=== PATIENT | female | born 1955 | race Caucasian/White ===

== ENCOUNTER 2022-03-26 08:21 | Inpatient (IN) | payer MEDICARE, SELFPAY ==
[2022-03-26] VITALS (34 sets, daily range): BP systolic 95–153; BP diastolic 60–86; PULSE 60–98; RESP 8–20; TEMP 36.4–36.8; O2SAT 93–100; BMI 27.3
--- NOTE | 2022-03-26 | ECHO_ITS ---
Patient Info Name: Lianet Rausch Age: 66 years : 1955 Gender: Female Ht: 66 in Wt: 169 lbs BSA: 1.91 m2 HR: 78 bpm BP: 137 / 80 mmHg Heart Rhythm: Sinus Rhythm Technical Quality: Fair Exam Date: 03/26/2022 2:35 PM Exam Location: [facility] Pulmonary Exam Room: ICU 05 Patient Status: Inpatient Admit Date: 03/26/2022 Staff Ordering Physician: Phill Aranda MD Test Carrier: Jazmine Solomon RDCS Attending Provider: Mateo Leonard MD Referring Physician: Manoj SELLERS; Exam Type: CA echo doppler color flow Study Info Indications - ACS CHEST PAIN S/P CATH Complete two-dimensional, color flow and Doppler transthoracic echocardiogram is performed. Summary 1. Complete two-dimensional, color flow and Doppler transthoracic echocardiogram is performed. 2. Left ventricular chamber dimension is mildly enlarged. 3. Left ventricular systolic function is low normal, estimated at 50-55%. 4. There is mildly increased left ventricular wall thickness. 5. The left ventricular diastolic function is grade I diastolic dysfunction. 6. The basal inferior wall, mid inferior wall, basal anterolateral wall, mid anterolateral wall, basal inferolateral wall, and mid inferolateral wall are hypokinetic. 7. There is mild mitral valve regurgitation. 8. There is mild tricuspid valve regurgitation. Left Ventricle Left ventricular chamber dimension is mildly enlarged. Left ventricular systolic function is low normal, estimated at 50-55%. There is mildly increased left ventricular wall thickness. The left ventricular diastolic function is grade I diastolic dysfunction. The basal inferior wall, mid inferior wall, basal anterolateral wall, mid anterolateral wall, basal inferolateral wall, and mid inferolateral wall are hypokinetic. All other mendoza appear normal. Right Ventricle Right ventricular chamber dimension is normal. Right ventricular systolic function is normal. Left Atria Left atrial chamber dimension is normal. Right Atria Right atrial chamber dimension is normal. Atrial Septum Intact interatrial septum visualized by color flow imaging. Aortic Valve The aortic valve is trileaflet. There is mild aortic valve sclerosis. There is no aortic valve stenosis. There is trace aortic valve regurgitation. Pulmonic Valve The pulmonic valve is normal. There is no pulmonic valve stenosis. There is trace pulmonic regurgitation. Mitral Valve The mitral valve has normal leaflets. There is no mitral valve stenosis. There is mild mitral valve regurgitation. Tricuspid Valve The tricuspid valve leaflets are normal. There is no significant tricuspid valve stenosis. There is mild tricuspid valve regurgitation. No pulmonary hypertension, estimated pulmonary arterial systolic pressure is 24 mmHg. Pericardium/Pleural The pericardium appears normal. There is no pericardial effusion. Inferior Vena Cava Normal inferior vena cava with <50% collapse upon inspiration consistent with elevated right atrial pressure, 10 mmHg. Aorta The aortic root size at the sinus of Valsalva is normal. Left Ventricular Outflow Tract Name Value Normal LVOT 2D LVOT Diameter 2.0 cm
--- NOTE | ~2022-03-26 | XR_ITS ---
EXAMINATION: XR chest 2V DATE: 03/26/2022 09:00 INDICATION: Chest pain TECHNIQUE: AP and lateral views of the chest are obtained. COMPARISON: None available FINDINGS: There are minimal airspace opacities of the right middle lobe. No pleural effusion or pneum othorax. The cardiomediastinal silhouette is normal. There is mild thoracic spondylosis. IMPRESSION: 1. Minimal airspace opacities of the right middle lobe, consistent with atelectasis versus pneumonia. Reviewed, dictated and finalized at location A. IMPRESSION: 1. Minimal airspace opacities of the right middle lobe, consistent with atelect asis versus pneumonia.
--- NOTE | 2022-03-26 08:26 | ECG_ITS ---
Measurements Intervals [place] Rate: 75 P: 57 MT: 160 QRS: 21 QRSD: 102 T: 70 QT: 392 QTc: 439 Interpretive Statements SINUS RHYTHM MINIMAL ST DEPRESSION [0.025+ mV ST DEPRESSION] ABNORMAL ECG Electronically Signed On 03-26-2022 10:08:28 CDT by Phill Aranda M.D.
[2022-03-26 08:38] LABS: Basophils Absolute Auto 0.1 K/mm3 (0.0-0.1); Basophils Percent Auto 0.7 % (0.2-1.2); Eosinophils Absolute Auto 0.4 K/mm3 (0-0.3); Eosinophils Percent Auto 5.1 % (0-4.4); Hematocrit 38.4 % (37.0-47.0); Hemoglobin 12.4 g/dL (12.0-15.0); Immature Granulocyte Absolute 0.02 K/mm3 (0.00-0.031); Immature Granulocyte Percent A 0.3 % (0-0.5); Lymphocytes Absolute Auto 4.17 K/mm3 (0.9-3.2); Lymphocytes Percent Auto 54.8 % (18.3-44.2); Mean Corpuscular HGB Conc 32.3 g/dl (32-36); Mean Corpuscular Hemoglobin 25.9 pg (26-34); Mean Corpuscular Volume 80.2 fl (80-100); Monocytes Absolute Auto 0.5 K/mm3 (0.1-0.6); Monocytes Percent Auto 6.8 % (2.6-8.5); Neutrophils Absolute Auto 2.5 K/mm3 (1.3-6.7); Neutrophils Percent Auto 32.3 % (45.5-73.1); Platelet Count Result 405 k/mm3 (150-375); Red Blood Count 4.79 M/mm3 (4.2-5.4); Red Cell Distribution Width 17.1 % (11.5-14.5); White Blood Count 7.6 K/mm3 (4.5-10.0)
[2022-03-26] MEDS: MORPHINE SULFATE (*CRX) 4 MG/ML INJ IV PUSH (08:41)
[2022-03-26 08:46] LABS: INR 0.9; Prothrombin Time 12.2 Seconds (11.1-14.7)
[2022-03-26 08:47] LABS: Partial Thromboplastin Time 26.1 SECONDS (22.3-36.8)
[2022-03-26 08:49] LABS: Alanine Aminotransferase 18 U/L (6-35); Albumin Level 4.2 g/dL (3.5-5.1); Alkaline Phosphatase 85 U/L (38-126); Anion Gap 10 mmol/L (8-16); Aspartate Amino Transferase 31 U/L (14-36); Bilirubin,Total 0.4 mg/dL (0.2-1.3); Blood Urea Nitrogen 19 mg/dL (7-17); Calcium 9.5 mg/dL (8.4-10.2); Carbon Dioxide 20 mmol/L (22-30); Chloride 104 mmol/L (98-107); Estimated Glomerular Filt Rate > 60; Glucose 189 mg/dL (65-110); Lipase 127 U/L (23-300); Potassium 3.6 mmol/L (3.4-5.0); Sodium 134 mmol/L (137-145)
[2022-03-26 08:59] LABS: Troponin I < 0.012 ng/mL (0.000-0.034)
--- NOTE | 2022-03-26 09:04 | ED.CHESTPAIN ---
HPI - Chest Pain General Chief Complaint: Chest Pain Stated Complaint: Chest pressure Time Seen by Provider: 03/26/22 08:26 History of Present Illness HPI narrative: Patient is a 66-year-old female who presents ER with chest pain. Chest pain sudden onset. Occurred around 7:30 AM. Pressure in the center of her chest radiating to bilateral shoulders making her arms feel heavy. 9/10. Feels mildly dyspneic with it. No nausea or vomiting or sweats. No history of heart disease. Patient does have history of diabetes and high cholesterol. She reports she had a cardiac catheterization 3 years ago in which she had a 20% stenosis of her LAD. This was at [facility]. Patient had mild improvement with nitroglycerin x3 but pain is now creeping back up and is 7/10. Symptoms felt worse if she lays back. Related Data Home Medications Medication Instructions Recorded Confirmed metformin 500 mg tablet 500 mg PO BID 07/26/19 03/26/22 (Glucophage) sitagliptin 100 mg-metformin ER 1 tablet PO DAILY 07/26/19 03/26/22 1,000 mg tablet,extended [id number] (Janumet XR) esomeprazole magnesium 20 mg 1 mg PO DAILY 07/27/19 03/26/22 capsule,delayed release (Nexium) aspirin 81 mg tablet 81 mg PO DAILY 03/26/22 03/26/22 levothyroxine 75 mcg tablet 75 mcg PO DAILY 03/26/22 03/26/22 (Synthroid) meloxicam 7.5 mg tablet 15 mg PO DAILY 03/26/22 03/26/22 Allergies Allergy/AdvReac Type Severity Reaction Status Date / Time pantoprazole [From Protonix] Allergy irregular Verified 07/29/19 14:59 heart rate alcohol AdvReac Intermediate Flushing Verified 07/29/19 15:00 Review of Systems Review of Systems: All systems reviewed & are unremarkable except as noted in HPI and below Constitutional: Constitutional: Denies chills, Denies fatigue and Denies fever(s) ENT: Denies nasal congestion and Denies sore throat Cardiovascular: Cardiovascular: Reports chest pain, Denies rapid heart rate and Reports radiating jaw, neck or arm pain Respiratory: Respiratory: Denies cough, Reports dyspnea and Denies wheezing Gastrointestinal: Gastrointestinal: Denies abdominal pain, Denies nausea and Denies vomiting Neurologic: Denies syncope, Denies headache(s), Denies focal weakness and Denies numbness PMFSH Past Medical History Medical History Abnormal CT of the chest Chronic GERD Hyperparathyroidism Status post parathyroidectomy x1. Hypothyroidism Left ureteral calculus Osteoarthritis Type 2 diabetes mellitus Recent hemoglobin A1c was 6.6. Urolithiasis Surgical History Surgical History H/O hysterectomy for benign disease History of appendectomy History of bilateral knee replacement History of breast biopsy With benign histology. History of cholecystectomy History of parathyroidectomy X1. History of total abdominal hysterectomy and bilateral salpingo-oophorectomy History of ureter stent S/P cholecystectomy S/p total knee replacement, bilateral Family History Family History Father Acute myocardial infarction Diabetes mellitus Social History Social History (Updated 03/26/22 @ 14:40 by Elgin Philip MD) Social History: The patient lives in [place] with her . She designates her , Brian, as her surrogate decision maker and she wishes to be a full code. 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 She is a lifelong nonsmoker and denies drug abuse. Drinks alcohol occasionally code status full code Smoking status: Never smoker Alcohol intake: never Substance use: never Substance use type: does not use Gender identity (if verbalized by the patient): Female Spiritual care concerns: No Agree to blood products: Yes Exam Narrative: GENERAL: Well-nourished, moderate distress HEAD: Normocephalic, atraumatic. EYES: PER
[2022-03-26] MEDS: METOPROLOL TARTRATE INJ 5 MG/5 ML VIAL IV PUSH (09:33)
[2022-03-26 10:04] LABS: SARS-CoV-2 RNA PCR Negative
--- NOTE | 2022-03-26 10:15 | ECG_ITS ---
Measurements Intervals [place] Rate: 81 P: 59 MA: 171 QRS: 17 QRSD: 102 T: 79 QT: 392 QTc: 458 Interpretive Statements SINUS RHYTHM WITH FREQUENT VENTRICULAR PREMATURE COMPLEXES IN A BIGEMINAL PATTERN LOW QRS VOLTAGE IN EXTREMITY LEADS [QRS DEFLECTION < 0.5 mV IN LIMB LEADS] ST ELEVATION, CONSIDER INFERIOR INJURY [MARKED ST ELEVATION W/O NORMALLY INFLECTED T WAVE IN II/aVF] ACUTE WI ABNORMAL ECG COMPARED TO ECG 03/26/2022 08:23:05 NO SIGNIFICANT CHANGES Electronically Signed On 03-26-2022 17:21:30 CDT by Phill Aranda M.D.
--- NOTE | 2022-03-26 12:18 | ECG_ITS ---
Measurements Intervals [place] Rate: 88 P: 58 MI: 164 QRS: 21 QRSD: 102 T: 23 QT: 369 QTc: 447 Interpretive Statements SINUS RHYTHM LOW QRS VOLTAGE IN EXTREMITY LEADS [QRS DEFLECTION < 0.5 mV IN LIMB LEADS] NONSPECIFIC T-WAVE ABNORMALITY ABNORMAL ECG COMPARED TO ECG 03/26/2022 09:11:17 NO SIGNIFICANT CHANGES Electronically Signed On 03-26-2022 17:23:02 CDT by Phill Aranda M.D.
[2022-03-26] MEDS: HEPARIN SODIUM 5,000 UNITS/ML VIAL 4000 UNITS IV PUSH (12:27)
[2022-03-26] MEDS: MORPHINE SULFATE (*CRX) 2 MG/ML INJ 1 MG IV PUSH (12:38)
[2022-03-26] MEDS: NITROGLYCERIN SL 0.4 MG TABLET SUBLINGUAL (12:39)
--- NOTE | 2022-03-26 12:39 | PC.NURSE ---
[address] Aranda 1212 Over head paged 1213 Magy 1214 [place] [facility] ETA 16min 1237 Olea notified
[2022-03-26] MEDS: HEPARIN SOD/D5W 100 UNITS/ML 25,000 UNITS/250 ML BAG 8 UNITS IV CONT ×2 (12:41→20:15)
--- NOTE | 2022-03-26 12:48 | PM.CNCAR ---
Assessment and Plan Assessment and plan (1) ACS (acute coronary syndrome): Code(s): I24.9 - Acute ischemic heart disease, unspecified Status: Acute Assessment and Plan: Patient's 2nd EKG shows some inferior ST segment changes which are borderline for an ST-elevation myocardial infarction. Given ongoing symptoms, despite normalization of the ST segments with her 3rd ECG, patient will be treated aggressively. Standard heparin drip per protocol. Metoprolol was already given. Aspirin as also already been given. Morphine 1 mg IV x1 as well as another dose of sublingual nitroglycerin 0.4 mg sublingual p.r.n. chest pain. I did talk to Dr. Olea patient will be taken urgently to the cardiac catheterization lab for coronary angiogram. Atorvastatin 40 mg p.o. daily will also be initiated. Further workup and evaluation be depend on the results of the coronary angiogram. I will order 2D echocardiogram with Doppler also. Takotsubo is also not completely excluded as she has been under a great deal of stress as of late. (2) CAD (coronary artery disease): Code(s): I25.10 - Atherosclerotic heart disease of [place] coronary artery without angina pectoris Status: Acute Assessment and Plan: Previous 20% stenosis noted by angiogram a couple of years ago. (3) Type 2 diabetes mellitus: Code(s): E11.9 - Type 2 diabetes mellitus without complications Status: Acute Assessment and Plan: Per hospitalist (4) Hypercholesterolemia: Code(s): E78.00 - Pure hypercholesterolemia, unspecified Status: Acute Assessment and Plan: Will start atorvastatin. Will check a fasting lipid panel (5) Chest pain: Code(s): R07.9 - Chest pain, unspecified Status: Acute Assessment and Plan: Related to ACS History of Present Illness History of Present Illness Consult date/time: 03/26/22 12:48 Requesting physician: Adam Fuentes MD Reason For Visit: Chest Pain Narrative: Reason consultation: Chest pain Date of service 03/26/2022 Requesting provider: Dr. Fuentes History: Patient is a 66-year-old female came to hospital because of chest pain. She states she had a catheterization about 3 years ago at [facility] and was told she had a 20% stenosis in what she believes was the LAD. She does have a history of diabetes and hyperlipidemia as well as a family history of coronary disease. This morning at about 730 in the morning she started developed chest discomfort. Over the past couple of weeks he has been more fatigued as well as anemic. She was scheduled for colonoscopy in a couple of weeks. Today however she went to work. 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 She felt her arms being weak and numb. She had some pressure in her midsternal area. She came to the hospital initial EKG showed some nonspecific changes but not diagnostic for ACS. Second EKG was more concerning and her 2nd troponin has increased to 8. She has already received aspirin and metoprolol as well as heparin. Nitroglycerin was given in route which did help her symptoms. She states that her symptoms are almost gone to this point and our level of 2/10. She is under a great deal of stress at this point Review of Systems Review of Systems: All systems reviewed & are unremarkable except as noted in HPI and below Constitutional: Constitutional: Denies body ache(s) and Reports weakness Eyes: Eyes: Denies blurry vision ENT: Reports Normal hearing present Cardiovascular: Cardiovascular: Reports chest pain Respiratory: Respiratory: Denies cough Gastrointestinal: Gastrointestinal: Denies abdominal pain Genitourinary: Genitourinary: Denies hematuria Musculoskeletal: Musculoskeletal: Denies back pain Integumentary/Breasts: Skin/Breast: Denies breast pain Neurologic: Denies Abnormal speech present Psychiatric: Psychiatric: Denies anxiety and Denies behavioral changes Endocrine: End
--- NOTE | 2022-03-26 12:53 | PM.IMHP ---
H&P: HPI History of Present Illness Date/Time: 03/26/22 12:53 Chief Complaint: chest pain Narrative: this is a 66-year-old female patient who does have a history of coronary artery disease. She had a cardiac catheterization a couple years ago with minimal blockage. The patient stated that she had a very stressful day yesterday and felt stressed out. Her aunt just recently received a pacemaker so the patient feels very stress in her life. The patient stated that today she started with the chest pain that was a sudden onset around 730 this morning. She had pressure in the center of her chest reading to bilateral shoulders making her arms feel heavy. Her pain was 9/10. Feels mildly dyspneic with that. No nausea vomiting or sweats. She does have a history of diabetes and high cholesterol. Her cardiac catheterization was 3 years ago with approximately 20% stenosis of her LAD. This was at [facility]. The patient had mild improvement with the nitro x3 and then her pain could back up to a 7/10. Cardiology had been consulted. The 2nd EKG was read as an acute MS. the patient was having multiple PVCs at the time. Cardiology was called and a STEMI was called. Patient had been given a full dose of aspirin, morphine, Lopressor IV, heparin bolus, morphine, nitro, fentanyl, and heparin drip in the emergency room. Prior to going to the catheterization laboratory technician I did see the patient and she was talking in full sentences without difficulty. First troponin was negative and the 2nd troponin jumped up to 8.110. the patient is being admitted to observation status on the date of service of 03/26/2022. Review of Systems Review of Systems: See history of present illness All systems reviewed & are unremarkable except as noted in HPI and below Constitutional: Constitutional: Reports as per HPI and Reports no additional constitutional complaints Eyes: Eyes: Reports as per HPI and Reports no additional eye complaints ENT: Reports system reviewed and no additional complaints, except as documented and Reports Normal hearing present Cardiovascular: Cardiovascular: Reports no additional cardiovascular complaints Respiratory: Respiratory: Reports no additional respiratory complaints and Reports no additional respiratory complaints Gastrointestinal: Gastrointestinal: Reports as per HPI and Reports no additional gastrointestinal complaints Musculoskeletal: Musculoskeletal: Reports no additional musculoskeletal complaints Integumentary/Breasts: Skin/Breast: Reports system reviewed and no additional complaints, except as docu and Reports as per HPI Neurologic: Reports system reviewed and no additional complaints, except as documented, Reports as per HPI and Reports Normal hearing present Psychiatric: Psychiatric: Reports no additional psychiatric complaints and Reports as per HPI Endocrine: Endocrine: Reports no additional endocrine complaints Hematologic/Lymphatic: Hematologic/Lymphatic: Reports no additional hematologic/lymphatic complaints Allergic/Immunologic: Allergic/Immunologic: Reports no additional allergic/immunologic complaints [facility] Past Medical History Medical History (Updated 03/26/22 @ 13:49 by Marixa Cortes NP) Abnormal CT of the chest Chronic GERD Hyperparathyroidism Status post parathyroidectomy x1. Hypothyroidism Left ureteral calculus Osteoarthritis Type 2 diabetes mellitus Recent hemoglobin A1c was 6.6. Urolithiasis Surgical History Surgical History (Updated 03/26/22 @ 13:49 by Marixa Cortes NP) H/O hysterectomy for benign disease History of appendectomy History of bilateral knee replacement History of breast biopsy With benign histology. History of cholecystectomy History of parathyroidectomy X1. History of total abdominal hysterectomy and bilateral salpingo-oophorectomy History of ureter stent S/P cholecystectomy S/p total knee replacement, bilateral Family History Family History (Reviewed 03/26/22
--- NOTE | 2022-03-26 13:50 | WPDHPUPDATE1 ---
History and Physical Update Update Date/Time: 03/26/22 13:50 History and Physical has been reviewed, including an updated exam of the patient. There are NO changes in the patient's condition. Risks, benefits, and alternatives have been discussed and questions answered. Patient agrees to proceed with procedure.
--- NOTE | 2022-03-26 13:50 | WPDMODSED ---
Moderate Sedation Note-Pt Data Patient Data Diagnosis: nstemi Present Complaint: Chest pain Procedure to be performed/Plan: coronary angiogram Allergies Allergy/AdvReac Type Severity Reaction Status Date / Time pantoprazole [From Protonix] Allergy irregular Verified 07/29/19 14:59 heart rate alcohol AdvReac Intermediate Flushing Verified 07/29/19 15:00 Home Medications Medication Instructions Recorded Confirmed Type levothyroxine 100 mcg tablet 100 mcg PO DAILY 07/26/19 07/29/19 History (Synthroid) meloxicam 7.5 mg tablet (Mobic) 7.5 mg PO DAILY 07/26/19 07/29/19 History metformin 500 mg tablet 500 mg PO BID 07/26/19 07/29/19 History (Glucophage) ondansetron HCl 4 mg tablet 4 mg PO Q6H PRN nausea and 07/26/19 07/29/19 Rx (Zofran) vomiting #14 tabs sitagliptin 100 mg-metformin ER 1 tablet PO DAILY 07/26/19 07/29/19 History 1,000 mg tablet,extended [id number] mp (Janumet XR) esomeprazole magnesium 20 mg 1 mg PO DAILY 07/27/19 07/29/19 History capsule,delayed release (Nexium) hydrocodone 5 mg-acetaminophen 325 1 - 2 tablet PO Q6H PRN pain #20 07/29/19 Rx mg tablet tabs sulfamethoxazole 800 1 tablet PO Q12H #6 tabs 07/29/19 Rx mg-trimethoprim 160 mg tablet aspirin 81 mg tablet 81 mg PO DAILY 03/26/22 03/26/22 History levothyroxine 75 mcg tablet 75 mcg PO DAILY 03/26/22 03/26/22 History (Synthroid) meloxicam 7.5 mg tablet 7.5 mg PO DAILY 03/26/22 03/26/22 History metformin 500 mg tablet,extended mg PO 03/26/22 History release 24 hr Current Medications: Active Medications Acetaminophen (Acetaminophen 325 Mg Tablet) 650 mg PO Q4H PRN PRN Reason: Mild Pain (1-3) or Fever Hydrocodone Bitart/Acetaminophen (Hydrocodone/Acetaminophen (*Crx) 5-325 Mg Tablet) 1 tab PO Q4H PRN PRN Reason: Pain Rated 4-6 Atorvastatin Calcium (Atorvastatin 40 Mg Tablet) 40 mg PO DAILY DILLON Dextrose (Dextrose 50% 25 Gm/50 Ml Syringe) 12.5 gm IV PUSH PRN PRN; Protocol PRN Reason: Hypoglycemia Glucagon (Glucagon For Inj 1 Mg Vial) 1 mg IM PRN PRN; Protocol PRN Reason: Hypoglycemia Glucose (Glucose Oral Gel 15 Gm Of Glucse In 37.5 Gm Tube) 15 gm PO PRN PRN; Protocol PRN Reason: Hypoglycemia Heparin Sodium (Porcine) (Heparin Sodium 5,000 Units/Ml Vial) 4,000 units IV PUSH PRN PRN PRN Reason: aPTT less than 55 seconds Heparin Sodium (Porcine) (Heparin Sodium 5,000 Units/Ml Vial) 2,500 units IV PUSH PRN PRN PRN Reason: aPTT 55 - 70 seconds Heparin Sodium/Dextrose (Heparin Sodium/D5w 100 Units/Ml) 25,000 units in 250 mls @ 8 mls/hr IV CONT .Q24H DILLON; Protocol Last Admin: 03/26/22 12:41 Dose: 800 units/hr, 8 mls/hr Dextrose (Dextrose 5% 1,000 Ml) 1,000 mls @ 100 mls/hr IVPB PRN PRN; Protocol PRN Reason: Hypoglycemia Insulin Aspart (Insulin Aspart (*Bkc) 100 Units/Ml) 2 - 5 units SUB-Q TIDWM DILLON; Protocol Morphine Sulfate (Morphine Sulfate (*Crx) 4 Mg/Ml Inj) 4 mg IV PUSH Q2H PRN PRN Reason: Pain Rated 7-10 Ondansetron HCl (Ondansetron Inj 4 Mg/2 Ml Vial) 4 mg IV PUSH Q4H PRN PRN Reason: Nausea Perflutren Lipid Microsphere (Perflutren Lipid Microspheres 1.5 Ml Vial Diluted To 10 Ml Total Volume) 0 ml IV PUSH ONCE PRN; Protocol PRN Reason: adequate visualization Sedation/Anesthesia: No previous sedation/anesthesia problems (including family history). [facility] Past Medical History Medical History Abnormal CT of the chest Chronic GERD Hyperparathyroidism Status post parathyroidectomy x1. Hypothyroidism Left ureteral calculus Osteoarthritis Type 2 diabetes mellitus Recent hemoglobin A1c was 6.6. Urolithiasis Surgical History Surgical History H/O hysterectomy for benign disease History of appendectomy History of bilateral knee replacement History of breast biopsy With benign histology. History of cholecystectomy History of parathyroidectomy X1. History of total abdomi
--- NOTE | 2022-03-26 13:51 | P.PCNCC_ITS ---
Cardiac Cath Procedure Note Date of procedure:: 03/26/22 Performing physician:: Shannen Olea MD date of service 03/26/2022- Indication:: elevated troponins, chest pain Brief clinical history:: this 66-year-old female with past history of hypertension, hypothyroidism and previous cardiac catheterization 3 years ago with reported 20% in the LAD presents to the hospital with chest pain. Troponins were found to be elevated at 8. Procedure Procedure performed:: 1-Moderate sedation that started at and ended at using mg of Versed and mg fentanyl. The registered nurse was 2-Selective left and right coronary angiogram. 3-Left heart catheterization with measurement of LVEDP and measurement of gradient across aortic valve. 4- LV angiogram. 4-Right common femoral arterial angiogram. 5-Deployment of 6 [place] Angio-Seal. Sedation/Medication given:: Moderate sedation. Access site:: Right common femoral artery. Estimated blood loss:: 10cc Procedure note:: After informed consent patient was brought in to laboratory equipment cleaner with the was draped and prepped in usual manner. Moderate sedation was given and the right groin was infiltrated using 1% lidocaine. Five [place] sheath was obtained using micropuncture needle and the modified Seldinger technique. Selective left coronary angiogram was done using JL4 catheter with the tip of the catheter pl aced in the left main coronary artery. Selective right coronary angiogram was done using JR4 catheter with the tip of the catheter placed to the right coronary artery. After that 6 [place] pigtail catheter was advanced across the aortic valve into the left ventricle with measurement of LVEDP and measurement of gradient across aortic valve. Right common femoral arterial angiogram was done. Findings:: 1- left coronary artery is a large artery that divides into large LAD, large circumflex artery. Left main is free of disease. 2- left anterior descending artery is a large artery that runs and wraps around the apex. Minimal irregularities. 3- leftcircumflex artery is a large artery With minimal irregularities. In the mid segment large OM1 without significant disease. 4- right coronary artery is dual system. we initially engaged a very small RCA and we thought it is non dominant and that looked unremarkable however when we went back with a JR4 we managed to engage the ostium and shows that the RCA gives a medium-size artery that looks dominant. There is a spiral and haziness proximally suspicious for a dissection plane. 5- LVEDP was 25 mm Hgand no gradient across aortic valve. 6- LV angiogram ejection fraction 65% with basal and mid inferior wall hypokinesis. 6- opening arterial pressure was 140/80 and closing pressure was 130/70 7- right femoral artery angiogram shows no significant disease in the right common femoral artery. 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 evidence of basal and mid inferior wall hypokinesis Assessment and Plan Assessment and plan (1) Chest pain: Code(s): R07.9 - Chest pain, unspecified Status: Acute Plan - would resume heparin 6 hours from now and continue it for about 48 hours. - Continue aspirin - start Plavix 75 mg daily. - Observe patient for now
--- NOTE | 2022-03-26 14:09 | ADMGEN ---
This patient, Lianet Rausch, was admitted to Intensive Care Unit-5 at 1400. Patient/family oriented to hospital policies and general routines including ID bracelet, bed and alarms, visiting hours, pain management, procedures, bathroom and other care routines, personal items, smoking policy, room service/diet, and visiting hours. Information on how to activate the Rapid Response Team has been discussed. Patient/Family are encouraged to report perceived risks to care and to ask questions if they do not understand what they are told or what they should do.
--- NOTE | 2022-03-26 14:17 | WPDCNINT ---
Assessment and Plan Assessment and plan (1) ACS (acute coronary syndrome): Code(s): I24.9 - Acute ischemic heart disease, unspecified Status: Acute Assessment and Plan: Cardiac catheterization showed nonobstructive coronary disease and dissection of RCA Discuss with Cardiology and they plan to treat patient medically Continue aspirin Lipitor Plavix Heparin be resumed in 6 hours Echo is ordered ICU telemetry monitoring (2) CAD (coronary artery disease): Code(s): I25.10 - Atherosclerotic heart disease of [place] coronary artery without angina pectoris Status: Acute Assessment and Plan: See above (3) Type 2 diabetes mellitus: Code(s): E11.9 - Type 2 diabetes mellitus without complications Status: Acute Assessment and Plan: Hold p.o. 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 She presented today with chest pain started suddenly aound 730 this morning.? She had pressure in the center of her chest reading to bilateral shoulders making her arms feel heavy.? Her pain was 9/10.? Feels mildly dyspneic with that.? No nausea vomiting or sweats.? No palpitations lightheadedness or dizziness. Her cardiac catheterization was 3 years ago with approximately 20% stenosis of her LAD and was done [facility].? In ER, patient had mild improvement with the nitro x3 and then her? pain could back up to a 7/10.? She had elevated troponin Patient was diagnosed with STEMI and Cardiology was consulted.? Patient was also given aspirin, morphine, Lopressor IV, heparin bolus, morphine, nitro, fentanyl, and heparin drip in the emergency room.? Cardiac catheterization showed spiral dissection of proximal RCA with BONY flow 3. She also had estimated EF of 55% and evidence of basal and mid inferior wall hypokinesis. No intervention was performed Patient now admitted to ICU for further evaluation management. Patient this time states that she feels much better and denies any pain at this time. All the systems were reviewed and were negative PMFSH Past Medical History Medical History Abnormal CT of the chest Chronic GERD Hyperparathyroidism Status post parathyroidectomy x1. Hypothyroidism Left ureteral calculus Osteoarthritis Type 2 diabetes mellitus Recent hemoglobin A1c was 6.6. Urolithiasis Surgical History Surgical History H/O hysterectomy for benign disease History of appendectomy History of bilateral knee replacement History of breast biopsy With benign histology. History of cholecystectomy History of parathyroidectomy X1. History of total abdominal hysterectomy and bilateral salpingo-oophorectomy History of ureter stent S/P cholecystectomy S/p total knee replacement, bilateral Family History Family History Father Acute myocardial infarction Diabetes mellitus Social History Social History (Updated 03/26/22 @ 14:40 by Elgin Sa
[2022-03-26] MEDS: ATORVASTATIN 40 MG TABLET PO (14:24)
[2022-03-26] MEDS: SODIUM CHLORIDE 0.9% IV 1,000 ML 75 ML IV CONT (14:25)
[2022-03-26 18:29] LABS: Glucose Point of Care 135 mg/dl (65-105)
[2022-03-26] MEDS: ACETAMINOPHEN 325 MG TABLET 650 MG PO (19:53)
[2022-03-26] MEDS: METOPROLOL TARTRATE 12.5 MG TABLET PO (19:53)
[2022-03-26] MEDS: FAMOTIDINE 20 MG TABLET PO (19:53)
[2022-03-26 21:11] LABS: Glucose Point of Care 164 mg/dl (65-105)
[2022-03-27] VITALS (17 sets, daily range): BP systolic 111–131; BP diastolic 54–81; PULSE 7–86; RESP 16–19; TEMP 35.9–37; O2SAT 92–100
[2022-03-27 02:11] LABS: Hematocrit 36.7 % (37.0-47.0); Hemoglobin 11.7 g/dL (12.0-15.0); Mean Corpuscular HGB Conc 31.9 g/dl (32-36); Mean Corpuscular Hemoglobin 26.1 pg (26-34); Mean Corpuscular Volume 81.7 fl (80-100); Platelet Count Result 373 k/mm3 (150-375); Red Blood Count 4.49 M/mm3 (4.2-5.4); Red Cell Distribution Width 17.3 % (11.5-14.5); White Blood Count 7.9 K/mm3 (4.5-10.0)
[2022-03-27 02:25] LABS: Lactic Acid Reflex 1.1 mmol/L (0.7-2.0)
[2022-03-27 02:29] LABS: Alanine Aminotransferase 25 U/L (6-35); Albumin Level 3.7 g/dL (3.5-5.1); Alkaline Phosphatase 61 U/L (38-126); Anion Gap 5 mmol/L (8-16); Aspartate Amino Transferase 92 U/L (14-36); Bilirubin,Total 0.3 mg/dL (0.2-1.3); Blood Urea Nitrogen 17 mg/dL (7-17); Calcium 8.8 mg/dL (8.4-10.2); Carbon Dioxide 26 mmol/L (22-30); Chloride 102 mmol/L (98-107); Cholesterol 274 mg/dL (0-200); Estimated CRCL calculation 73 ml/min; Estimated Glomerular Filt Rate > 60; Glucose 194 mg/dL (65-110); Magnesium 1.6 mg/dL (1.6-2.3); Potassium 4.1 mmol/L (3.4-5.0); Sodium 133 mmol/L (137-145)
[2022-03-27] MEDS: HEPARIN SODIUM 5,000 UNITS/ML VIAL 4000 UNITS IV PUSH (02:31)
[2022-03-27 02:35] LABS: LDL Cholesterol Direct 139 mg/dL
[2022-03-27 03:23] LABS: Hemoglobin A1C 7.7 % (<5.7)
[2022-03-27 03:26] LABS: Triglycerides 617 mg/dL (<150)
[2022-03-27 03:28] LABS: Lactate Dehydrogenase 302 U/L (120-246)
[2022-03-27 03:53] LABS: Thyroid Stimulating Hormone Reflex 0.074 uIU/mL (0.465-4.68)
[2022-03-27 05:19] LABS: Free T4 Free Thyroxine Reflex 1.21 ng/dL (0.78-2.19)
[2022-03-27] MEDS: ACETAMINOPHEN 325 MG TABLET 650 MG PO (05:51)
[2022-03-27] MEDS: LEVOTHYROXINE SODIUM 75 MCG TABLET PO (05:51)
[2022-03-27 08:17] LABS: Glucose Point of Care 203 mg/dl (65-105)
--- NOTE | 2022-03-27 08:55 | WPDINTPN ---
Progress Note: A&P Assessment and Plan (1) ACS (acute coronary syndrome): Code(s): I24.9 - Acute ischemic heart disease, unspecified Status: Acute Assessment and Plan: Cardiac catheterization showed nonobstructive coronary disease and dissection of RCA Discuss with Cardiology and they plan to treat patient medically Continue aspirin Lipitor Plavix Heparin will be continued for total of 48 hours as per Cardiology Continue telemetry monitoring Echo results were discussed with the patient Summary ? 1. Complete two-dimensional, color flow and Doppler transthoracic echocardiogram is performed. ? 2. Left ventricular chamber dimension is mildly enlarged. ? 3. Left ventricular systolic function is low normal, estimated at 50-55%. ? 4. There is mildly increased left ventricular wall thickness. ? 5. The left ventricular diastolic function is grade I diastolic dysfunction. ? 6. The basal inferior wall, mid inferior wall, basal anterolateral wall, mid anterolateral wall, basal inferolateral wall, and mid inferolateral wall are hypokinetic. ? 7. There is mild mitral valve regurgitation. ? 8. There is mild tricuspid valve regurgitation. (2) CAD (coronary artery disease): Code(s): I25.10 - Atherosclerotic heart disease of [place] coronary artery without angina pectoris Status: Acute Assessment and Plan: See above (3) Type 2 diabetes mellitus: Code(s): E11.9 - Type 2 diabetes mellitus without complications Status: Acute Assessment and Plan: p.o. meds are on hold at this time and continue sliding scale insulin (4) Hypercholesterolemia: Code(s): E78.00 - Pure hypercholesterolemia, unspecified Status: Acute Assessment and Plan: Lipid panel shows elevated triglyceride Lipitor was started by Cardiology I discussed options of Vascepa and fenofibrate with the patient for treatment of hypertriglyceridemia. She states that she takes [id number] fish oil and would prefer Vascepa. 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 We do not have Vascepa in the hospital formulary. She states that she will obtain a prescription at the time of discharge then start as an outpatient. Will discuss Cardiology and Internal Medicine (5) Chronic GERD: Code(s): K21.9 - Gastro-esophageal reflux disease without esophagitis Status: Acute Assessment and Plan: Patient states intolerance to Protonix which is the only PPI we have. He prefers Nexium which is not a formulary She is on Pepcid at this time while inpatient (6) Hypothyroidism: Code(s): E03.9 - Hypothyroidism, unspecified Status: Acute Assessment and Plan: Continue levothyroxine TSH low but normal T3 and T4 Will not make any change in the rectal dose at this time Plan DVT prophylaxis -patient will continue to be on therapeutic heparin infusion Stress ulcer prophylaxis -on Pepcid for GERD Nutrition -heart healthy diet Full code Transfer out of ICU today Subjective Date/time seen: 03/27/22 Patient states that she feels much better and denies any new complaints today. She slept well and has no chest pain or shortness of breath. She ate her dinner. Patient denies fever, chest pain, shortness of breath, cough, nausea vomiting, abdominal pain,, diarrhea, headache or constipation. All other systems were reviewed and were negative Sinus rhythm on telemetry with adequate blood pressure. She is on room air Review of Systems Review of Systems: All systems reviewed & are unremarkable except as noted in HPI and below (HPI) Exam Narrative: General: Pt is alert awake and in NAD Lungs/Chest: Trachea central Clear BS B/L, No crackles or wheezing. Cardiac: RRR. Normal S1 S2. No murmurs Circulation: Pedal pulses are intact and symmetrical. Abdomen: Normal bowel sounds.. Soft. NT. ND. Extremities: No clubbing, cyanosis or edema. Warm right groin site has an just seal dressing on it with no swelling bruising or hemat
[2022-03-27 09:08] LABS: Partial Thromboplastin Time 70.7 SECONDS (22.3-36.8)
[2022-03-27] MEDS: METOPROLOL TARTRATE 12.5 MG TABLET PO ×2 (09:30→20:37)
[2022-03-27] MEDS: FAMOTIDINE 20 MG TABLET PO ×2 (09:30→20:37)
[2022-03-27] MEDS: ASPIRIN 81 MG CHEWABLE TABLET PO (09:31)
[2022-03-27] MEDS: CLOPIDOGREL BISULFATE 75 MG TABLET PO (09:31)
[2022-03-27] MEDS: INSULIN ASPART (*BKC) 100 UNITS/ML SUB-Q ×2 (09:31→12:30)
[2022-03-27] MEDS: ATORVASTATIN 40 MG TABLET PO (09:31)
--- NOTE | 2022-03-27 09:56 | ECG_ITS ---
Measurements Intervals [place] Rate: 64 P: 53 IN: 170 QRS: -2 QRSD: 106 T: -31 QT: 452 QTc: 467 Interpretive Statements SINUS RHYTHM LOW QRS VOLTAGE IN EXTREMITY LEADS [QRS DEFLECTION < 0.5 mV IN LIMB LEADS] NONSPECIFIC T-WAVE ABNORMALITY ABNORMAL ECG COMPARED TO ECG 03/26/2022 12:23:42 NO SIGNIFICANT CHANGES Electronically Signed On 03-27-2022 12:23:48 CDT by Phill Aranda M.D.
--- NOTE | 2022-03-27 09:57 | PM.PNCARD ---
Progress Note: A&P Assessment and Plan (1) ACS (acute coronary syndrome): Code(s): I24.9 - Acute ischemic heart disease, unspecified Status: Acute Assessment and Plan: Will repeat an EKG today. Also repeat troponin for evaluation of peak. Catheterization results as below as well as echocardiogram Echo:2. Left ventricular chamber dimension is mildly enlarged. ? 3. Left ventricular systolic function is low normal, estimated at 50-55%. ? 4. There is mildly increased left ventricular wall thickness. ? 5. The left ventricular diastolic function is grade I diastolic dysfunction. ? 6. The basal inferior wall, mid inferior wall, basal anterolateral wall, mid anterolateral wall, basal inferolateral wall, and mid inferolateral wall are hypokinetic. ? 7. There is mild mitral valve regurgitation. ? 8. There is mild tricuspid valve regurgitation. Cardiac catheterization 1- left coronary artery is a large artery that divides into large LAD, large circumflex artery.? Left main is free of disease. 2- left anterior descending artery is a large artery that runs and wraps around the apex.? Minimal irregularities. 3- leftcircumflex artery is a large artery? With minimal irregularities.? In the mid segment large OM1 without significant disease. 4- right coronary artery is? dual? system. we initially engaged a very small RCA and we thought it is non dominant and that looked unremarkable however when we went back with a JR4 we managed to engage the ostium and shows that the RCA gives a medium-size artery that looks dominant.? There is a spiral and haziness proximally suspicious for a dissection plane. 5- LVEDP was? 25 mm Hgand no gradient across aortic valve. 6- LV angiogram ejection fraction 65% with basal and mid inferior wall hypokinesis. 6- opening arterial pressure was 140/80 and closing pressure was 130/70 7- right femoral artery angiogram shows no significant disease in the right common femoral artery. Continue heparin, metoprolol, aspirin, clopidogrel, statin. Keep NPO after midnight for consideration of repeating angiogram tomorrow. Will have Dr. Reed review films and discuss case with him. Okay to transfer to IMU (2) CAD (coronary artery disease): Code(s): I25.10 - Atherosclerotic heart disease of [place] coronary artery without angina pectoris Status: Acute Assessment and Plan: As above (3) Chronic GERD: Code(s): K21.9 - Gastro-esophageal reflux disease without esophagitis Status: Acute (4) Type 2 diabetes mellitus: Code(s): E11.9 - Type 2 diabetes mellitus without complications Status: Acute Assessment and Plan: Per hospitalist (5) Hypercholesterolemia: Code(s): E78.00 - Pure hypercholesterolemia, unspecified Status: Acute Assessment and Plan: On statin Subjective Date/time seen: 03/27/22 09:57 Interval history: 66-year-old admitted for ACS/chest pain. Catheterization performed yesterday with details as below. Date of service 03/27/2022: Feels well. No chest pain, shortness of breath, groin pain or palpitations. Review of Systems Review of Systems: All systems reviewed & are unremarkable except as noted in HPI and below Constitutional: Constitutional: Denies body ache(s), Denies excessive sweating and Reports weakness Eyes: Eyes: Denies blurry vision ENT: Reports Normal hearing present Cardiovascular: Cardiovascular: Reports chest pain Respiratory: Respiratory: Denies cough Gastrointestinal: Gastrointestinal: Denies abdominal pain Genitourinary: Genitourinary: Denies hematuria Musculoskeletal: Musculoskeletal: Denies back pain Integumentary/Breasts: Skin/Breast: Denies breast pain Neurologic: Reports Normal hearing present, Denies Abnormal speech present, Denies behavioral changes and Reports weakness Psychiatric: Psychiatric: Denies anxiety and Denies behavioral changes Endocrine: Endocrine: Denies excessive sweating
[2022-03-27 12:14] LABS: Glucose Point of Care 265 mg/dl (65-105)
[2022-03-27 14:15] LABS: Partial Thromboplastin Time 57.7 SECONDS (22.3-36.8); Prothrombin Time 13.2 Seconds (11.1-14.7)
--- NOTE | 2022-03-27 14:38 | PM.IMPN ---
Progress Note: A&P Assessment and Plan (1) ACS (acute coronary syndrome): Code(s): I24.9 - Acute ischemic heart disease, unspecified Status: Acute (2) CAD (coronary artery disease): Code(s): I25.10 - Atherosclerotic heart disease of [place] coronary artery without angina pectoris Status: Acute (3) Type 2 diabetes mellitus: Code(s): E11.9 - Type 2 diabetes mellitus without complications Status: Acute (4) Hypercholesterolemia: Code(s): E78.00 - Pure hypercholesterolemia, unspecified Status: Acute (5) Chronic GERD: Code(s): K21.9 - Gastro-esophageal reflux disease without esophagitis Status: Acute (6) Hypothyroidism: Code(s): E03.9 - Hypothyroidism, unspecified Status: Acute Plan # acute coronary syndrome. Patient presented with chest pain initial troponin was negative. EKG with no ST-T changes. He started having chest panic and troponin bump to 8.1. A inferior lead ST elevation were noted stat STEMI was called. Cardiology was consulted. Received aspirin, nitro, Lopressor, heparin bolus drip in the ER. Status post cardiac catheterization: Suspicious for spiral dissection proximal RCA with BONY flow 3. Evidence of basal and mid inferior wall hypokinesis. On aspirin and Plavix. Echo EF 50-55% grade 1 diastolic dysfunction. Hypokinetic basal inferior wall mid inferior wall and basal anterolateral wall mid anterolateral wall basal inferolateral wall and mid inferolateral wall. on aspirin and statin along with beta-faisal. # coronary disease history of minimal coronary artery disease in the past # intolerance to statin in the past willing to try again # chronic GERD # type 2 diabetes mellitus on OhA. restart januvia. hold metfomrin for now de to recent cath. on ssi. A1c at 7.7 # hypercholesterolemia on statin lipid profile with elevated triglycerides 617. On fish oil. will repeat Lipid profile in a.m. # hypothyroidism # DVT prophylaxis on heparin infusion # code status full code Discussed with cover marker Subjective Date/time seen: 03/27/22 14:38 Interval history: HPI:?this is a 66-year-old female patient who does have a history of coronary artery disease.? She had a cardiac catheterization a couple years ago with minimal blockage.? The patient stated that she had a very stressful day yesterday and felt stressed out.? Her aunt just recently received a pacemaker so the patient feels very stress in her life.? The patient stated that today she started with the chest pain that was a sudden onset around 730 this morning.? She had pressure in the center of her chest reading to bilateral shoulders making her arms feel heavy.? Her pain was 9/10.? Feels mildly dyspneic with that.? No nausea vomiting or sweats.? She does have a history of diabetes and high cholesterol.? Her cardiac catheterization was 3 years ago with approximately 20% stenosis of her LAD.? This was at [facility].? The patient had mild improvement with the nitro x3 and then her? pain could back up to a 7/10.? Cardiology had been consulted.? The 2nd EKG was read as an acute TX. the patient was having multiple PVCs at the time.? Cardiology was called and a STEMI was called.? Patient had been given a full dose of aspirin, morphine, Lopressor IV, heparin bolus, morphine, nitro, fentanyl, and heparin drip in the emergency room.? Prior to going to the clinical laboratory scientist I did see the patient and she was talking in full sentences without difficulty.? First troponin was negative and the 2nd? troponin jumped up to 8.110. the patient is being admitted to observation status on the date of service of 03/26/2022. 03/27/2022 she moved out of the ICU today.Feels better. No chest pain shortness of breath. Groin site looks okay. Review of Systems Review of Systems: All systems reviewed & are unremarkable except as noted in HPI and below (HPI) Exam Narrative: General: Pt is alert awake and in NAD Lungs/Chest:
[2022-03-27] MEDS: HEPARIN SODIUM 5,000 UNITS/ML VIAL 2500 UNITS IV PUSH (14:53)
--- NOTE | 2022-03-27 16:54 | PC.NURSE ---
This patient, Lianet Rausch, was received from ICU5 report from Imelda Albarado RN on 03/27/22 at 12:37. Patient/family oriented to unit policies and routines. Heparin drip going at 12. Patient A&O X 4. No distress noted.
[2022-03-27 17:15] LABS: Glucose Point of Care 155 mg/dl (65-105)
[2022-03-27] MEDS: HEPARIN SOD/D5W 100 UNITS/ML 25,000 UNITS/250 ML BAG 13 UNITS IV CONT (17:27)
[2022-03-27 19:50] LABS: Glucose Point of Care 257 mg/dl (65-105)
[2022-03-27 20:13] LABS: Partial Thromboplastin Time 85.6 SECONDS (22.3-36.8)
[2022-03-28] VITALS (9 sets, daily range): BP systolic 141; BP diastolic 57–71; PULSE 67–84; RESP 16–20; TEMP 36.6–36.9; O2SAT 95–100
[2022-03-28 02:24] LABS: Hematocrit 37.5 % (37.0-47.0); Hemoglobin 11.9 g/dL (12.0-15.0); Mean Corpuscular HGB Conc 31.7 g/dl (32-36); Mean Corpuscular Hemoglobin 25.8 pg (26-34); Mean Corpuscular Volume 81.3 fl (80-100); Mean Platelet Volume 10.1 fl (7.4-10.4); Platelet Count Result 369 k/mm3 (150-375); Red Blood Count 4.61 M/mm3 (4.2-5.4); Red Cell Distribution Width 17.2 % (11.5-14.5); White Blood Count 6.8 K/mm3 (4.5-10.0)
[2022-03-28 02:37] LABS: Partial Thromboplastin Time 78.6 SECONDS (22.3-36.8)
[2022-03-28 02:44] LABS: Alanine Aminotransferase 21 U/L (6-35); Albumin Level 3.6 g/dL (3.5-5.1); Alkaline Phosphatase 113 U/L (38-126); Anion Gap 7 mmol/L (8-16); Aspartate Amino Transferase 49 U/L (14-36); Bilirubin,Total < 0.1 mg/dL (0.2-1.3); Blood Urea Nitrogen 20 mg/dL (7-17); Calcium 9.3 mg/dL (8.4-10.2); Carbon Dioxide 25 mmol/L (22-30); Chloride 104 mmol/L (98-107); Cholesterol 242 mg/dL (0-200); Estimated CRCL calculation 83 ml/min; Estimated Glomerular Filt Rate > 60; Glucose 222 mg/dL (65-110); Magnesium 1.8 mg/dL (1.6-2.3); Potassium 3.7 mmol/L (3.4-5.0); Sodium 136 mmol/L (137-145)
[2022-03-28 02:45] LABS: LDL Cholesterol Direct 115 mg/dL
[2022-03-28 04:22] LABS: Triglycerides 850 mg/dL (<150)
[2022-03-28] MEDS: LEVOTHYROXINE SODIUM 75 MCG TABLET PO (06:28)
[2022-03-28 09:04] LABS: Glucose Point of Care 242 mg/dl (65-105)
[2022-03-28] MEDS: ATORVASTATIN 40 MG TABLET PO (09:42)
[2022-03-28] MEDS: FAMOTIDINE 20 MG TABLET PO (09:42)
[2022-03-28] MEDS: ASPIRIN 81 MG CHEWABLE TABLET PO (09:43)
[2022-03-28] MEDS: METOPROLOL TARTRATE 12.5 MG TABLET PO (09:43)
--- NOTE | 2022-03-28 12:10 | PM.IMPN ---
Progress Note: A&P Assessment and Plan (1) ACS (acute coronary syndrome): Code(s): I24.9 - Acute ischemic heart disease, unspecified Status: Acute (2) CAD (coronary artery disease): Code(s): I25.10 - Atherosclerotic heart disease of [place] coronary artery without angina pectoris Status: Acute (3) Type 2 diabetes mellitus: Code(s): E11.9 - Type 2 diabetes mellitus without complications Status: Acute (4) Hypercholesterolemia: Code(s): E78.00 - Pure hypercholesterolemia, unspecified Status: Acute (5) Chronic GERD: Code(s): K21.9 - Gastro-esophageal reflux disease without esophagitis Status: Acute (6) Hypothyroidism: Code(s): E03.9 - Hypothyroidism, unspecified Status: Acute Plan # acute coronary syndrome. Patient presented with chest pain initial troponin was negative. EKG with no ST-T changes. He started having chest panic and troponin bump to 8.1. A inferior lead ST elevation were noted stat STEMI was called. Cardiology was consulted. Received aspirin, nitro, Lopressor, heparin bolus drip in the ER. Status post cardiac catheterization: Suspicious for spiral dissection proximal RCA with BONY flow 3. Evidence of basal and mid inferior wall hypokinesis. On aspirin and Plavix. Echo EF 50-55% grade 1 diastolic dysfunction. Hypokinetic basal inferior wall mid inferior wall and basal anterolateral wall mid anterolateral wall basal inferolateral wall and mid inferolateral wall. on aspirin and Plavix with statin along with beta-faisal. Awaiting Cardiac recommendation # coronary disease history of minimal coronary artery disease in the past # intolerance to statin in the past willing to try again # chronic GERD # type 2 diabetes mellitus on OhA. restart vinod. hold metfomrin for now de to recent cath. on ssi. A1c at 7.7 # hypercholesterolemia on statin lipid profile with elevated triglycerides 617. On fish oil. will repeat Lipid profile repeated with similar hypertriglyceridemia. Started on statin. May need addition of fibrate to lower the triglycerides down. # hypothyroidism # DVT prophylaxis on heparin infusion # code status full code Subjective Date/time seen: 03/28/22 12:10 Interval history: HPI:?this is a 66-year-old female patient who does have a history of coronary artery disease.? She had a cardiac catheterization a couple years ago with minimal blockage.? The patient stated that she had a very stressful day yesterday and felt stressed out.? Her aunt just recently received a pacemaker so the patient feels very stress in her life.? The patient stated that today she started with the chest pain that was a sudden onset around 730 this morning.? She had pressure in the center of her chest reading to bilateral shoulders making her arms feel heavy.? Her pain was 9/10.? Feels mildly dyspneic with that.? No nausea vomiting or sweats.? She does have a history of diabetes and high cholesterol.? Her cardiac catheterization was 3 years ago with approximately 20% stenosis of her LAD.? This was at [facility].? The patient had mild improvement with the nitro x3 and then her? pain could back up to a 7/10.? Cardiology had been consulted.? The 2nd EKG was read as an acute MT. the patient was having multiple PVCs at the time.? Cardiology was called and a STEMI was called.? Patient had been given a full dose of aspirin, morphine, Lopressor IV, heparin bolus, morphine, nitro, fentanyl, and heparin drip in the emergency room.? Prior to going to the field laborer I did see the patient and she was talking in full sentences without difficulty.? First troponin was negative and the 2nd? troponin jumped up to 8.110. the patient is being admitted to observation status on the date of service of 03/26/2022. 03/27/2022 she moved out of the ICU today.Feels better. No chest pain shortness of breath. Groin site looks okay. 03/28/2020 no overnight events. Feeling well. Denies any
[2022-03-28 13:01] LABS: Glucose Point of Care 201 mg/dl (65-105)
--- NOTE | 2022-03-28 13:48 | PM.PNCARD ---
Progress Note: A&P Assessment and Plan (1) ACS (acute coronary syndrome): Code(s): I24.9 - Acute ischemic heart disease, unspecified Status: Acute Assessment and Plan: Catheterization results as below as well as echocardiogram Echo:2. Left ventricular chamber dimension is mildly enlarged. ? 3. Left ventricular systolic function is low normal, estimated at 50-55%. ? 4. There is mildly increased left ventricular wall thickness. ? 5. The left ventricular diastolic function is grade I diastolic dysfunction. ? 6. The basal inferior wall, mid inferior wall, basal anterolateral wall, mid anterolateral wall, basal inferolateral wall, and mid inferolateral wall are hypokinetic. ? 7. There is mild mitral valve regurgitation. ? 8. There is mild tricuspid valve regurgitation. Cardiac catheterization 1- left coronary artery is a large artery that divides into large LAD, large circumflex artery.? Left main is free of disease. 2- left anterior descending artery is a large artery that runs and wraps around the apex.? Minimal irregularities. 3- leftcircumflex artery is a large artery? With minimal irregularities.? In the mid segment large OM1 without significant disease. 4- right coronary artery is? dual? system. we initially engaged a very small RCA and we thought it is non dominant and that looked unremarkable however when we went back with a JR4 we managed to engage the ostium and shows that the RCA gives a medium-size artery that looks dominant.? There is a spiral and haziness proximally suspicious for a dissection plane. 5- LVEDP was? 25 mm Hg and no gradient across aortic valve. 6- LV angiogram ejection fraction 65% with basal and mid inferior wall hypokinesis. 6- opening arterial pressure was 140/80 and closing pressure was 130/70 7- right femoral artery angiogram shows no significant disease in the right common femoral artery. Angiogram films reviewed by Dr. Reed and discussed with him. Coronary arteries free of disease and no evidence of dissection. Will treat for presumed coronary artery vasospasm. She has not had any recurrence of chest pain, troponin peaked at 22.8 and fell to 6.8 yesterday. Heparin has been discontinued at this point. Discussed diagnosis and plan of care with patient and at the bedside. Will discontinue plavix and ASA. Continue statin. Will add amlodipine 5mg daily and PRN SL nitroglycerin. If she has recurrent symptoms could add a long acting nitrate to her regimen. This plan was discussed with Dr. Reed at 1430 (2) CAD (coronary artery disease): Code(s): I25.10 - Atherosclerotic heart disease of [place] coronary artery without angina pectoris Status: Acute Assessment and Plan: As above (3) Chronic GERD: Code(s): K21.9 - Gastro-esophageal reflux disease without esophagitis Status: Acute (4) Type 2 diabetes mellitus: Code(s): E11.9 - Type 2 diabetes mellitus without complications Status: Acute Assessment and Plan: Per hospitalist (5) Hypercholesterolemia: Code(s): E78.00 - Pure hypercholesterolemia, unspecified Status: Acute Assessment and Plan: On statin Subjective Date/time seen: 03/28/22 13:48 Cardiology follow up for ACS Doing well today and denies any further episodes of chest pain. She does not have any complaints at this time. Does have multiple questions related to her diagnosis all of which were answered to her satisfaction. Review of Systems Review of Systems: All systems reviewed & are unremarkable except as noted in HPI and below Constitutional: Constitutional: Denies body ache(s), Denies excessive sweating and Reports weakness Eyes: Eyes: Denies blurry vision ENT: Reports Normal hearing present Cardiovascular: Cardiovascular: Reports chest pain Respiratory: Respiratory: Denies cough Gastrointestinal: Gastrointestinal: Denies abdominal pain Genitourinary: Genitourinary: Denies hematu
--- NOTE | 2022-03-28 14:54 | PM.DS ---
DS: Admitting Diagnosis Discharge Date 03/28/2022 Admitting Diagnosis chest pain DS: Discharge Diagnosis Discharge Diagnosis (1) ACS (acute coronary syndrome): Code(s): I24.9 - Acute ischemic heart disease, unspecified Status: Acute (2) CAD (coronary artery disease): Code(s): I25.10 - Atherosclerotic heart disease of [place] coronary artery without angina pectoris Status: Acute (3) Type 2 diabetes mellitus: Code(s): E11.9 - Type 2 diabetes mellitus without complications Status: Acute (4) Hypercholesterolemia: Code(s): E78.00 - Pure hypercholesterolemia, unspecified Status: Acute (5) Chronic GERD: Code(s): K21.9 - Gastro-esophageal reflux disease without esophagitis Status: Acute (6) Hypothyroidism: Code(s): E03.9 - Hypothyroidism, unspecified Status: Acute DS: Summary Hospital Course Hospital Course: # acute coronary syndrome. Patient presented with chest pain initial troponin was negative. EKG with no ST-T changes. she started having chest panic and troponin bump to 8.1And peaked at 22.8. A inferior lead ST elevation were noted stat STEMI was called. Cardiology was consulted. Received aspirin, nitro, Lopressor, heparin bolus drip in the ER. Status post cardiac catheterization: Suspicious for spiral dissection proximal RCA with BONY flow 3. Evidence of basal and mid inferior wall hypokinesis. On aspirin and Plavix. Echo EF 50-55% grade 1 diastolic dysfunction. Hypokinetic basal inferior wall mid inferior wall and basal anterolateral wall mid anterolateral wall basal inferolateral wall and mid inferolateral wall. she was started on aspirin and Plavix with statin along with beta-faisal. the films were reviewed by Dr. Reed and suggested no signs of coronary artery disease and no evidence of dissection. Suggested treat for possible coronary artery vasospasm. Started on amlodipine 5 mg and p.r.n. sublingual nitroglycerin. She had recurrent symptoms long-acting nitrate could be added. # coronary disease history of minimal coronary artery disease in the past # intolerance to statin in the past willing to try again. Started on statin # chronic GERD # type 2 diabetes mellitus on OhA. restart januvia. hold metfomrin for now de to recent cath. on ssi. A1c at 7.7. Continue to follow with her PCP for diabetes management # hypercholesterolemia on statin lipid profile with elevated triglycerides 617. On fish oil. Lipid profile repeated with similar hypertriglyceridemia. Started on statin. May need addition of fibrate to lower the triglycerides downIf statin due to 1. # hypothyroidism # DVT prophylaxis on heparin infusion # code status full code Time Spent with Patient Time attestation: Total time spent providing and/or coordinating discharge services:45 minutes Exam Narrative: General: Pt is alert awake and in NAD Lungs/Chest: Trachea central Clear BS B/L, No crackles or wheezing. Cardiac: RRR. Normal S1 S2. No murmurs Circulation: Pedal pulses are intact and symmetrical. Abdomen: Normal bowel sounds.. Soft. NT. ND. Extremities: No clubbing, cyanosis or edema. Neurologic: Follows commands. Moves all 4 extremities PERRL AO x3 Skin: No Rash DS: Data Data Completed and Pending Labs on day of discharge: Labs from last 24 hours 03/28/22 03/28/22 03/28/22 12:21 08:33 02:17 WBC RBC Hgb Hct MCV MCH MCHC RDW Plt Count MPV APTT 78.6 H Sodium Potassium Chloride Carbon Dioxide Anion Gap BUN Creatinine Estim Creat Clear Calc Estimated GFR Glucose POC Capillary Glucose 201 H 242 H Calcium Magnesium Total Bilirubin AST ALT Alkaline Phosphatase Total Protein Albumin Triglycerides Cholesterol LDL Cholesterol Direct HDL Direct 03/28/22 03/28/22 03/27/22 02:17 02:17 19:50 WBC 6.8 RBC
== END 2022-03-28 16:29 | disposition home or self-care (01) | DRG 287 ==
LOC: ANHED 10:11 → ANHICU 12:25 → ANHIMU 03-27 12:25
PROVIDERS: Family Medicine; Internal Medicine; Internal Medicine Cardiovascular Disease; Nurse Practitioner; Admitting Provider Internal Medicine; Emergency Provider Emergency Medicine; Visit Provider Internal Medicine
PROC: 4A023N7 Measurement of Cardiac Sampling and Pressure, Left Heart, Percutaneous Approach (ICD-10-PCS; CPT 93452; principal; 2022-03-26 12:30)
PROC: 4A023N7 Measurement of Cardiac Sampling and Pressure, Left Heart, Percutaneous Approach (ICD-10-PCS; 2022-03-26 12:30)
DX: I24.9 Acute ischemic heart disease, unspecified (principal); K21.9 Gastro-esophageal reflux disease without esophagitis; Z20.822 Contact with and (suspected) exposure to COVID-19; E11.9 Type 2 diabetes mellitus without complications; E78.00 Pure hypercholesterolemia, unspecified; E03.9 Hypothyroidism, unspecified; M19.90 Unspecified osteoarthritis, unspecified site; Z96.653 Presence of artificial knee joint, bilateral; Z79.84 Long term (current) use of oral hypoglycemic drugs; Z90.49 Acquired absence of other specified parts of digestive tract; Z90.710 Acquired absence of both cervix and uterus; Z90.722 Acquired absence of ovaries, bilateral
CPT/HCPCS: 36415; 71046; 80053; 80061; 82948; 83036; 83605; 83615; 83690; 83735; 84439; 84443; 84480; 84484; 85025; 85027; 85610; 85730; 93005; 93306; 93458; 96365; 96375; 99285; A9270; C1760; C1887; C1894; C9803; G0269; G0378; J1644; J1815; J2250; J2270; J3010; J7030; U0003; U0005

== ENCOUNTER 2022-04-26 14:01 | Outpatient (CLI) | payer MEDICARE, SELFPAY ==
[2022-04-26 15:09] LABS: Anion Gap 16 mmol/L (8-16); Blood Urea Nitrogen 15 mg/dL (7-17); Calcium 9.4 mg/dL (8.4-10.2); Carbon Dioxide 21 mmol/L (22-30); Chloride 101 mmol/L (98-107); Estimated Glomerular Filt Rate > 60; Glucose 211 mg/dL (65-110); Magnesium 1.6 mg/dL (1.6-2.3); Sodium 138 mmol/L (137-145)
== END 2022-04-26 14:02 | disposition home or self-care (01) ==
PROVIDERS: Visit Provider Nurse Practitioner Adult Health
DX: R00.2 Palpitations (principal)
CPT/HCPCS: 36415; 80048; 83735

== ENCOUNTER 2022-06-16 15:01 | Observation (INO) | payer MEDICARE, SELFPAY ==
--- NOTE | ~2022-06-16 | XR_ITS ---
EXAMINATION: XR chest 1V portable 06/16/2022 15:35 INDICATION: Right-sided weakness. PROCEDURE: AP portable chest COMPARISON: 03/26/2022 FINDINGS: The lungs are clear. The cardiomediastinal silhouette is within normal limits. There are no pleural effusions. There is no pneumothorax suspected. IMPRESSION: 1: NO ACUTE CARDIOPULMONARY DISEASE. Reviewed, dictated and finalized at location A. WELDER
--- NOTE | ~2022-06-16 | CT_ITS ---
EXAMINATION: CT brain wo con DATE: 06/16/2022 15:16 INDICATION: Right-sided numbness. TECHNIQUE: Computed tomography (CT) of the head was performed without intravenous contrast. The mA wa s adjusted according to patient size. Iterative reconstruction technique was employed. The dose-lengt h product was 605.33 mGy-cm. COMPARISON: None FINDINGS: There is an old infarct in left cerebellum. There is old infarct in left parietal occipital region. There is a sellar and suprasellar mass measuring 17 mm. There is no intracranial hemorrhage or acute ischemic infarct. There are scattered areas of low attenuation in the cerebral white matter. The ventricles are normal in size. There is mild mucosal thickening in sphenoid sinus. The orbits ar e normal. The mastoid air cells are normal. IMPRESSION: 1. 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 2. Mild nonspecific cerebral white matter disease, which likely represents chronic small vessel ische gayathri disease. 3. 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 Brain MRI without and with con trast is recommended. Reviewed, dictated and finalized at location A. RANCE OFFICE MANAGER IMPRESSION: 1. Old infarcts involving the left cerebellum and left parietal occipital regio n. 2. Mild nonspecific cerebral white matter disease, which likely represents chrome plater alyse small vessel ischemic disease. 3. 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 Brain MR I without and with contrast is recommended.
--- NOTE | ~2022-06-16 | US_ITS ---
EXAMINATION: US carotid duplex BI DATE: 06/17/2022 07:35 INDICATION: TIA. TECHNIQUE: Grayscale, color Doppler, and pulsed Doppler images of the cervical carotid arteries were obtained. The degree of vessel stenosis is placed in one of the following categories: normal, <50%, 5 0-69%, >=70% but less than near-occlusion, near-occlusion, or total occlusion. Note that percent sten osis relative to normal distal artery lumen diameter is indirectly measured from velocity measurement s as described by Oscar, et al. Radiology 2003; 229:340-346. Notes: Normal: Peak systolic velocity <125 centimeters/sec and no plaque <50%. Peak systolic velocity <125 ( EDV <40; ICA/CCA PSV ratio <2.0; used these factors only a tandem lesions or low cardiac output or co ntralateral disease) 50-69 %: PSV 125-230 (EDV 40-100; ratio 2-4) >= 70% but less than near occlusion: PSV greater than 230 (EDV > 100; ratio> 4.0) Near Occlusion: PSV that is variable; markedly narrowed lumen Occlusion: Absent flow on color/spectral Doppler and no lumen on scott scale. COMPARISON: None. FINDINGS: RIGHT: The right common carotid artery (CCA) peak systolic velocity (PSV) is 70 cm/s. The right internal car otid artery (ICA) PSV is 61 cm/s. The right ICA end-diastolic velocity (EDV) is 22 cm/s. The right IC A/CCA PSV ratio is 0.9. The external carotid artery (ECA) PSV is 73 cm/s. There is antegrade flow in the right vertebral artery. LEFT: The left CCA PSV is 70 cm/s. The left ICA PSV is 57 cm/s. The left ICA EDV is 23 cm/s. The left ICA/C CA PSV ratio is 0.8. The ECA PSV is 62 cm/s. There is antegrade flow in the left vertebral artery. IMPRESSION: 1. Less than 50% stenosis in the right internal carotid artery by sonographic criteria. 2. Less than 50% stenosis in the left internal carotid artery by sonographic criteria. Reviewed, dictated and finalized at location A. RATION TECHNICIAN IMPRESSION: 1. Less than 50% stenosis in the right internal carotid artery by sonographic ni martino. 2. Less than 50% stenosis in the left internal carotid artery by sonographic frankie rasheed.
--- NOTE | ~2022-06-16 | MR_ITS ---
EXAMINATION: MR brain/brain stem wo/w con DATE: 06/17/2022 07:10 INDICATION: Right hemiparesis. TECHNIQUE: Magnetic resonance imaging (MRI) of the brain and brainstem was performed without and with 14 mL MultiHance intravenous contrast. COMPARISON: Head CT 06/16/2022 FINDINGS: There are old infarcts in the left cerebellum and left parietal occipital region. There is no acute ischemic infarct or intracranial hemorrhage. There are scattered areas of nonspecific increa sed T2-weighted signal intensity in the cerebral white matter. There is a 2.0 x 1.7 x 1.4 cm sellar a nd suprasellar mass with hypoenhancement relative to the pituitary gland, consistent with a macroaden yocasta. No cavernous sinus invasion. The ventricles are normal in size. The paranasal sinuses are clear. The orbits are normal. The mastoid air cells are normal. IMPRESSION: 1. 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 2. Mild nonspecific cerebral white matter disease, which likely represents chronic small vessel ische gayathri disease. 3. 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 Reviewed, dictated and finalized at location A. AGE MEAT TRIMMER IMPRESSION: 1. Old infarcts involving the left cerebellum and left parietal occipital regio n. 2. Mild nonspecific cerebral white matter disease, which likely represents advertising coordinator alyse small vessel ischemic disease. 3. 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
[2022-06-16 15:02] VITALS: BP 114/96; PULSE 85; RESP 14; TEMP 36.8; O2SAT 100
--- NOTE | 2022-06-16 15:10 | ECG_ITS ---
Measurements Intervals [place] Rate: 86 P: 63 AL: 165 QRS: -14 QRSD: 98 T: 50 QT: 387 QTc: 465 Interpretive Statements SINUS RHYTHM LOW QRS VOLTAGE IN LIMB LEADS BORDERLINE R WAVE PROGRESSION, ANTERIOR LEADS BORDERLINE ST-T WAVE ABNORMALITY- INF/LAT LEADS BASELINE ARTIFACT- I, II, III, AVR, AVL, AVF, V1-V6 BORDERLINE ECG COMPARED TO ECG 03/27/2022 11:20:05 NO SIGNIFICANT CHANGES Electronically Signed On 06-16-2022 15:50:59 MEDICAL DOCTOR MD/MEDICAL DIRECTOR by Giorgi Roldan D.O.
[2022-06-16 15:14] LABS: Glucose Point of Care 162 mg/dl (65-105)
--- NOTE | 2022-06-16 15:20 | ED.NEUROSD ---
HPI - Neuro Symptoms/Deficit General Chief Complaint: Suspected CVA Stated Complaint: ?CVA Time Seen by Provider: 06/16/22 15:09 Source: RN notes reviewed History of Present Illness HPI Narrative: Patient presents emergency room from home for right-sided numbness. Patient states symptoms began approximately 30 minutes prior to arrival she states she was driving when she began to feel numb in her right arm and right leg as well as right side of her face she also states that she saw some red fuzzy sensation out of her right eye she states that this lasted for approximately 15 minutes and resolved she said she did not have any noted weakness in her right arm or leg states it did feel mildly heavy to her she states that she had no facial droop and did not have any trouble speaking. She states all symptoms have resolved at this time. She denies any chest pain or shortness of breath. States she does take a baby aspirin a day but did not take it today Related Data Home Medications Medication Instructions Recorded Confirmed metformin 500 mg tablet 500 mg PO BID 07/26/19 03/26/22 (Glucophage) sitagliptin phos 100 mg-metformin 1 tablet PO DAILY 07/26/19 03/26/22 ER 1,000 mg tablet,extend rel 24h mp (Janumet XR) esomeprazole magnesium 20 mg 1 mg PO DAILY 07/27/19 03/26/22 capsule,delayed release (Nexium) aspirin 81 mg tablet 81 mg PO DAILY 03/26/22 03/26/22 levothyroxine 75 mcg tablet 75 mcg PO DAILY 03/26/22 03/26/22 (Synthroid) meloxicam 7.5 mg tablet 15 mg PO DAILY 03/26/22 03/26/22 Allergies Allergy/AdvReac Type Severity Reaction Status Date / Time pantoprazole [From Protonix] Allergy irregular Verified 07/29/19 14:59 heart rate alcohol AdvReac Intermediate Flushing Verified 07/29/19 15:00 Review of Systems Review of Systems: Gen.: Denies fevers or chills Eyes: See HPI ENT: Denies congestion Respiratory: Denies shortness of breath or cough CV: Denies chest pain or palpitations GI: Denies abdominal pain nausea, emesis or diarrhea Musculoskeletal: Denies back pain or muscle pain Neuro: See HPI Skin: Denies rash Except as documented, all other systems reviewed and negative PMFSH Past Medical History Medical History Abnormal CT of the chest Chronic GERD Hyperparathyroidism Status post parathyroidectomy x1. Hypothyroidism Left ureteral calculus Osteoarthritis Type 2 diabetes mellitus Recent hemoglobin A1c was 6.6. Urolithiasis Surgical History Surgical History H/O hysterectomy for benign disease History of appendectomy History of bilateral knee replacement History of breast biopsy With benign histology. History of cholecystectomy History of parathyroidectomy X1. History of total abdominal hysterectomy and bilateral salpingo-oophorectomy History of ureter stent S/P cholecystectomy S/p total knee replacement, bilateral Family History Family History Father Acute myocardial infarction Diabetes mellitus Social History Social History Social History: The patient lives in [place] with her . She designates her , Brian, as her surrogate decision maker and she wishes to be a full code. 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 She is a lifelong nonsmoker and denies drug abuse. Drinks alcohol occasionally code status full code Smoking status: Never smoker Alcohol intake: never Substance use: never Substance use type: does not use Gender identity (if verbalized by the patient): Female Spiritual care concerns: No Agree to blood products: Yes Exam Narrative: APPEARANCE: No acute distress, nontoxic, resting in bed HEENT: Normocephalic, atraumatic, OMM, TMs clear bilaterally EYES: PERRL, EOMI NECK: Supple, nontender, fu
[2022-06-16 15:27] LABS: Basophils Percent Auto 0.6 % (0.2-1.2); Eosinophils Absolute Auto 0.2 K/mm3 (0-0.3); Eosinophils Percent Auto 3.6 % (0-4.4); Hematocrit 38.1 % (37.0-47.0); Hemoglobin 12.2 g/dL (12.0-15.0); Immature Granulocyte Absolute 0.01 K/mm3 (0.00-0.031); Immature Granulocyte Percent A 0.2 % (0-0.5); Lymphocytes Percent Auto 40.3 % (18.3-44.2); Mean Corpuscular Hemoglobin 26.5 pg (26-34); Mean Corpuscular Volume 82.6 fl (80-100); Mean Platelet Volume 10.2 fl (7.4-10.4); Monocytes Absolute Auto 0.4 K/mm3 (0.1-0.6); Monocytes Percent Auto 6.5 % (2.6-8.5); Neutrophils Absolute Auto 3.2 K/mm3 (1.3-6.7); Neutrophils Percent Auto 48.8 % (45.5-73.1); Platelet Count Result 410 k/mm3 (150-375); Red Blood Count 4.61 M/mm3 (4.2-5.4); Red Cell Distribution Width 14.6 % (11.5-14.5); White Blood Count 6.5 K/mm3 (4.5-10.0)
[2022-06-16 15:30] VITALS: BP 110/63; PULSE 88; RESP 18; O2SAT 99
[2022-06-16 15:40] LABS: Partial Thromboplastin Time 29.3 SECONDS (22.3-36.8); Prothrombin Time 13.1 Seconds (11.1-14.7)
[2022-06-16 15:43] LABS: Alanine Aminotransferase 21 U/L (6-35); Albumin Level 4.5 g/dL (3.5-5.1); Alkaline Phosphatase 77 U/L (38-126); Anion Gap 13 mmol/L (8-16); Aspartate Amino Transferase 26 U/L (14-36); Bilirubin,Total 0.3 mg/dL (0.2-1.3); Blood Urea Nitrogen 9 mg/dL (7-17); Calcium 9.2 mg/dL (8.4-10.2); Carbon Dioxide 24 mmol/L (22-30); Chloride 102 mmol/L (98-107); Estimated Glomerular Filt Rate > 60; Glucose 164 mg/dL (65-110); Potassium 4.4 mmol/L (3.4-5.0); Sodium 139 mmol/L (137-145)
[2022-06-16 15:54] LABS: Troponin I < 0.012 ng/mL (0.000-0.034)
[2022-06-16] MEDS: ASPIRIN 81 MG CHEWABLE TABLET 324 MG PO (16:19)
[2022-06-16 16:30] VITALS: BP 136/79; PULSE 86; RESP 16; O2SAT 100
[2022-06-16 17:15] VITALS: BP 138/76; PULSE 89; RESP 16; O2SAT 97
[2022-06-16 17:24] LABS: Influenza A QL RT-PCR Negative (Negative); Influenza B QL RT-PCR Negative (Negative); SARS-CoV-2 RNA PCR Negative
[2022-06-16 20:00] VITALS: PULSE 99
--- NOTE | 2022-06-16 20:17 | ADMGEN ---
This patient, Lianet Rausch, was admitted to 2 Medical Room 259-01. Patient/family oriented to hospital policies and general routines including ID bracelet, bed and alarms, visiting hours, pain management, procedures, bathroom and other care routines, personal items, smoking policy, room service/diet, and visiting hours. Information on how to activate the Rapid Response Team has been discussed. Patient/Family are encouraged to report perceived risks to care and to ask questions if they do not understand what they are told or what they should do.
[2022-06-16 21:28] LABS: Glucose Point of Care 157 mg/dl (65-105)
[2022-06-16 21:44] LABS: Troponin I < 0.012 ng/mL (0.000-0.034)
[2022-06-16 22:34] VITALS: BP 120/64; PULSE 73; RESP 16; TEMP 36.6; O2SAT 94
--- NOTE | 2022-06-16 23:43 | PM.IMHP ---
H&P: HPI History of Present Illness Date/Time: 06/16/220 Chief Complaint: Headache with blurred vision Narrative: This is a 66-year-old female patient who came to the emergency room with complaints of blurred vision to the right eye. The patient does have a history of migraines and typically has an aura but this was different than a normal migraine. The patient stated that she had a 3 day conference in [place] and was driving home when she developed this headache to the right side and blurred vision to her right eye. She stated at 1 point she had lost total vision of her right eye but then it came back. The patient was also having some floaters to her right eye and she was seeing red boxes. She stated that she pulled over on the side of the road and called her family members to come get her and bring her to the hospital. She also developed some right-sided numbness to her right arm. This was 30 minutes prior to coming to the hospital. The symptoms lasted approximately 15 minutes and resolved on its own. She stated she does take a daily low-dose aspirin. Head CT was read as the following 1. 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 2. Mild nonspecific cerebral white matter disease, which likely represents chronic small vessel ischemic disease. 3. 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 Brain MRI without and with contrast is recommended. Chest x-ray was read as no acute cardiopulmonary disease. Neurology has been consulted. The patient had already taken her aspirin for the day. The patient was given a full-strength aspirin in the emergency room. Her blood sugar was noted to be 162 and then 157. Troponin was negative x2. She was negative for influenza A/B and COVID. The patient is being admitted for observation status on the date of service of 06/16/2022. Review of Systems Review of Systems: See HPI All systems reviewed & are unremarkable except as noted in HPI and below Constitutional: Constitutional: Reports as per HPI and Reports no additional constitutional complaints Eyes: Eyes: Reports as per HPI and Reports no additional eye complaints ENT: Reports system reviewed and no additional complaints, except as documented and Reports Normal hearing present Cardiovascular: Cardiovascular: Reports no additional cardiovascular complaints Respiratory: Respiratory: Reports no additional respiratory complaints and Reports no additional respiratory complaints Gastrointestinal: Gastrointestinal: Reports as per HPI and Reports no additional gastrointestinal complaints Musculoskeletal: Musculoskeletal: Reports no additional musculoskeletal complaints Integumentary/Breasts: Skin/Breast: Reports system reviewed and no additional complaints, except as docu and Reports as per HPI Neurologic: Reports system reviewed and no additional complaints, except as documented, Reports as per HPI and Reports Normal hearing present Psychiatric: Psychiatric: Reports no additional psychiatric complaints and Reports as per HPI Endocrine: Endocrine: Reports no additional endocrine complaints Hematologic/Lymphatic: Hematologic/Lymphatic: Reports no additional hematologic/lymphatic complaints Allergic/Immunologic: Allergic/Immunologic: Reports no additional allergic/immunologic complaints [facility] Past Medical History Medical History (Updated 06/16/22 @ 23:51 by Marixa Cortes NP) Abnormal CT of the chest Chronic GERD Hyperparathyroidism Status post parathyroidectomy x1. Hypothyroidism Left ureteral calculus Migraine Osteoarthritis Type 2 diabetes mellitus Recent hemoglobin A1c was 6.6. Urolithiasis Surgical History Surgical History (Updated 06/16/22 @ 23:53 by Marixa Cortes NP) H/O cardiac catheterization H/O hysterectomy for benign disease History of appendectomy History of bilateral knee replacement History of breast biopsy With benign histology. History of
[2022-06-17] VITALS: PULSE 84
--- NOTE | 2022-06-17 | ECHO_ITS ---
Patient Info Name: Lianet Rausch Age: 66 years : 1955 Gender: Female Ht: 64 in Wt: 160 lbs BSA: 1.83 m2 HR: 82 bpm Heart Rhythm: Sinus Rhythm Exam Date: 06/17/2022 10:40 AM Exam Location: [facility] Patient Status: Inpatient Admit Date: 06/16/2022 Staff Ordering Physician: Fartun Gu APRN Information Systems Administrator: Darshan Tenorio, SUNG, RT Attending Provider: Mateo Leonard MD Referring Physician: Brittanie BRUCE; Exam Type: CA echo limited w bubble study Study Info Indications G45.9 - Transient cerebral ischemic attack, unspecified G45.8 - Other transient cerebral ischemic attacks and related syndromes Limited two-dimensional transthoracic echocardiogram is performed with agitated saline. Summary 1. Echo imaging limited to apical four-chamber view for saline contrast injection with and without Valsalva. 2. Imaging with Valsalva demonstrates evidence of intracardiac shunting. 3. Direct visualization of the atrial septum was not of good quality. 4. If clinically indicated consider ARSH for further evaluation. Left Ventricle Left ventricular chamber dimension is normal. Left ventricular systolic function is normal, estimated at 55-60%. Right Ventricle Right ventricular chamber dimension is normal. Left Atria Left atrial chamber dimension is normal. Right Atria Right atrial chamber dimension is normal. Atrial Septum Interatrial septum not well visualized by agitated saline imaging. Aortic Valve The aortic valve is not well visualized. Pulmonic Valve The pulmonic valve is not well visualized. Mitral Valve The mitral valve has normal leaflets. Tricuspid Valve The tricuspid valve leaflets are not well visualized. Pericardium/Pleural The pericardium appears normal. Aorta The aortic root size at the sinus of Valsalva is not well visualized. Report Signatures
[2022-06-17 00:42] LABS: Troponin I < 0.012 ng/mL (0.000-0.034)
[2022-06-17 00:49] LABS: Hemoglobin A1C 8.1 % (<5.7)
[2022-06-17 04:00] VITALS: PULSE 79
[2022-06-17 04:33] VITALS: BP 109/82; PULSE 77; RESP 14; TEMP 36.4; O2SAT 98
[2022-06-17] MEDS: LEVOTHYROXINE SODIUM 75 MCG TABLET PO (06:00)
[2022-06-17 06:28] LABS: Basophils Percent Auto 0.6 % (0.2-1.2); Eosinophils Absolute Auto 0.3 K/mm3 (0-0.3); Eosinophils Percent Auto 4.7 % (0-4.4); Hematocrit 35.6 % (37.0-47.0); Hemoglobin 11.4 g/dL (12.0-15.0); Immature Granulocyte Absolute 0.02 K/mm3 (0.00-0.031); Immature Granulocyte Percent A 0.3 % (0-0.5); Lymphocytes Absolute Auto 3.24 K/mm3 (0.9-3.2); Lymphocytes Percent Auto 44.9 % (18.3-44.2); Mean Corpuscular Hemoglobin 27.1 pg (26-34); Mean Corpuscular Volume 84.8 fl (80-100); Mean Platelet Volume 10.9 fl (7.4-10.4); Monocytes Absolute Auto 0.5 K/mm3 (0.1-0.6); Monocytes Percent Auto 7.1 % (2.6-8.5); Neutrophils Absolute Auto 3.1 K/mm3 (1.3-6.7); Neutrophils Percent Auto 42.4 % (45.5-73.1); Platelet Count Result 383 k/mm3 (150-375); Red Cell Distribution Width 14.7 % (11.5-14.5); White Blood Count 7.2 K/mm3 (4.5-10.0)
[2022-06-17 06:29] LABS: Alanine Aminotransferase 19 U/L (6-35); Albumin Level 3.7 g/dL (3.5-5.1); Alkaline Phosphatase 79 U/L (38-126); Anion Gap 10 mmol/L (8-16); Aspartate Amino Transferase 24 U/L (14-36); Bilirubin,Total 0.3 mg/dL (0.2-1.3); Blood Urea Nitrogen 11 mg/dL (7-17); Calcium 8.8 mg/dL (8.4-10.2); Carbon Dioxide 23 mmol/L (22-30); Chloride 105 mmol/L (98-107); Estimated CRCL calculation 90 ml/min; Estimated Glomerular Filt Rate > 60; Glucose 119 mg/dL (65-110); Potassium 3.7 mmol/L (3.4-5.0); Sodium 138 mmol/L (137-145)
--- NOTE | 2022-06-17 08:17 | PM.IMPN ---
Progress Note: A&P Assessment and Plan (1) Brain TIA: Code(s): G45.9 - Transient cerebral ischemic attack, unspecified Status: Acute Assessment and Plan: -continue with patient's daily aspirin. -may consider adding Plavix. -an MRI has been ordered for her tomorrow. -carotid Dopplers have been ordered as well. -her CT of the brain does show an old CVA. -the patient has no residual at this time. -her symptoms only lasted approximately 15 minutes. -neurology has been consulted and we are awaiting recommendations. -the patient recently had an echo on 03/26/2022 which was read as the following 1. Complete two-dimensional, color flow and Doppler transthoracic echocardiogram is performed. ? 2. Left ventricular chamber dimension is mildly enlarged. ? 3. Left ventricular systolic function is low normal, estimated at 50-55%. ? 4. There is mildly increased left ventricular wall thickness. ? 5. The left ventricular diastolic function is grade I diastolic dysfunction. ? 6. The basal inferior wall, mid inferior wall, basal anterolateral wall, mid anterolateral wall, basal inferolateral wall, and mid inferolateral wall are hypokinetic. ? 7. There is mild mitral valve regurgitation. ? 8. There is mild tricuspid valve regurgitation. (2) Migraine: Code(s): G43.909 - Migraine, unspecified, not intractable, without status migrainosus Status: Acute Assessment and Plan: -the patient stated that she typically does not have migraines very often since she has had a hysterectomy. -the patient typically has an aura prior to having a migraine. -she stated the symptoms today did not feel like a migraine. (3) Mass of pituitary: Code(s): E23.6 - Other disorders of pituitary gland Status: Acute Assessment and Plan: -neurology has been consulted and recommends that the patient be admitted to the hospitalist and have an MRI. (4) Hypothyroidism: Code(s): E03.9 - Hypothyroidism, unspecified Status: Acute Assessment and Plan: -check thyroid level -continue with Synthroid. (5) Chronic GERD: Code(s): K21.9 - Gastro-esophageal reflux disease without esophagitis Status: Acute Assessment and Plan: -continue PPI. (6) Type 2 diabetes mellitus: Code(s): E11.9 - Type 2 diabetes mellitus without complications Status: Acute Assessment and Plan: -hold metformin due to the dye. -Accu-Cheks AC and HS. -her last A1c was over 3 months ago so I did recheck it. -hypoglycemic protocol. -sliding scale insulin. Subjective Date/time seen: 06/17/22 08:17 Exam Narrative: General: No acute distress.? Well-developed and well-groomed? Mental Status/Psych: Awake, alert and oriented to person and place with clear speech. Neutral mood and affect. Pleasant and cooperative. Skin: Skin fair, warm, dry and intact without rashes or lesions. No open wounds. Good turgor.? HEENT: Normocephalic. Conjunctivae are clear. Sclera is non-icteric. EOM intact. PERRL. Grossly normal hearing. Oral mucosa pink and moist. Tongue midline. Oropharynx within normal limits. Neck: Supple. Thyroid without nodularity. Trachea midline. No JVD. Heart: S1 and S2 regular rate and rhythm. No murmurs, gallops, or rubs auscultated. Chest: Respirations even and unlabored. Lung sounds are clear to auscultation in all lobes bilaterally without wheezes, rhonchi, or rales. Abdomen: Soft, round and non-tender to palpation.? Bowel sounds present in all 4 quadrants. Extremities:? Grossly normal ROM all extremities. No edema. Radial and dorsalis pedis pulses +2 bilaterally. Neurological: No focal deficits. Cranial nerves 2-12 grossly intact.? Objective Data Vital Signs Vital Signs: Vital Signs - 24 hr 06/16/22 15:02 06/16/22 15:30 06/16/22 16:30 Temperature 98.2 F Pulse Rate 85 88 86 Respiratory Rate 14 18 16 Blood Pressure 114/96 H 110/63 136/79 Pulse Oximetry 100 99 100 Oxygen Deliver
[2022-06-17] MEDS: MELOXICAM 7.5 MG TABLET PO (08:20)
[2022-06-17] MEDS: ASPIRIN 81 MG CHEWABLE TABLET PO (08:20)
[2022-06-17 08:33] LABS: Glucose Point of Care 157 mg/dl (65-105)
[2022-06-17 09:40] LABS: Thyroid Stimulating Hormone Reflex 0.079 uIU/mL (0.465-4.68)
--- NOTE | 2022-06-17 10:53 | WPDNEURCNPN ---
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 Migraine. Evaluation up until now revealed her to have normal CBC with no leukocytosis, serology nonreactive for flu and starts COVID, duplex of the carotid negative and MRI document old strokes in addition to cm sellar and suprasellar mass likely pituitary macroadenoma for which neurosurgical consultation can be obtained as an outpatient in addition we can obtain the echocardiogram with bubble study because of her having bihemispheric stroke and she is taking only aspirin 81 mg daily. Consult date: 06/17/22 HPI: Lianet Rausch is a 66 year old female Admitted to the hospital through the emergency room where she presented with right-sided numbness from her home of 30 minutes duration and with the description that she was driving when she became numb in her right upper extremity and right lower extremity as well in addition to the right side of the face and fuzzy sensation the whole episode lasted for about 15 minutes and subsequently resolved she did not notice any weakness of the right upper or right lower extremity or any facial droop, she has been taking metformin 500 mg b.i.d. with C tag Sonia 1 tablet daily aspirin 81 mg daily levothyroxine 75 micro g daily in addition to meloxicam 7.5 mg 2 of them daily, she does have ongoing history of GERD has undergone parathyroidectomy has history of hypothyroidism and type 2 diabetes mellitus with recent hemoglobin A1c of 6.6, initial CBC was normal CMP with blood sugar of 164 influenza A,B and COVID pending, CT scan of the head documented old infarct involving the left cerebellum and left parietal occipital region in addition to sellar and suprasellar mass raising the possibility of pituitary macroadenoma, Doppler study of the carotid negative and MRI of the brain documented 2.0cm sellar and suprasellar mass likely pituitary macroadenoma in addition to the old infarct involving the left cerebellum and left parietal occipital region [facility] Past Medical History Medical History (Updated 06/17/22 @ 13:36 by Tereso Grajeda MD) Abnormal CT of the chest Chronic GERD Hyperparathyroidism Status post parathyroidectomy x1. Hypothyroidism Left ureteral calculus Migraine Osteoarthritis Type 2 diabetes mellitus Recent hemoglobin A1c was 6.6. Urolithiasis Surgical History Surgical History (Updated 06/16/22 @ 23:53 by Marixa Cortes NP) H/O cardiac catheterization H/O hysterectomy for benign disease History of appendectomy History of bilateral knee replacement History of breast biopsy With benign histology. History of cholecystectomy History of parathyroidectomy X1. History of total abdominal hysterectomy and bilateral salpingo-oophorectomy History of ureter stent Hx of breast reduction, elective S/P cholecystectomy S/p total knee replacement, bilateral Family History Family History Father Acute myocardial infarction Diabetes mellitus Social History Social History Social History: The patient lives in [place] with her . She designates her , Brian, as her surrogate decision maker and she wishes to be a full code. 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 She is a lifelong nonsmoker and denies drug abuse. Drinks alcohol occasionally code status full code Smoking status: Never smoker Alcohol intake: never Substance use: never Substance use type: does not use Lack of Transportation: No Lack of Food: Never True Current Housing: I Have Housing Concerned About Future Housing: No Difficulty Paying Gas/Electric Bills: No Difficulty Paying for Meds: No Cur
[2022-06-17 11:14] LABS: Free T4 Free Thyroxine Reflex 1.15 ng/dL (0.78-2.19)
[2022-06-17 12:23] LABS: Glucose Point of Care 168 mg/dl (65-105)
[2022-06-17 13:41] VITALS: BP 127/41; PULSE 78; RESP 16; TEMP 36.5; O2SAT 99
[2022-06-17 14:18] LABS: Total Triiodothyronine (T3) 1.11 NG/ML (0.97-1.69)
--- NOTE | 2022-06-17 15:15 | PM.DS ---
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 - Benign neoplasm of pituitary gland Status: Acute (2) Brain TIA: Code(s): G45.9 - Transient cerebral ischemic attack, unspecified Status: Acute (3) Mass of pituitary: Code(s): E23.6 - Other disorders of pituitary gland Status: Resolved (4) Migraine: Qualifiers: Migraine type: unspecified Status migrainosus presence: without status migrainosus Intractability: not intractable Qualified Code(s): G43.909 - Migraine, unspecified, not intractable, without status migrainosus Code(s): G43.909 - Migraine, unspecified, not intractable, without status migrainosus Status: Acute (5) Type 2 diabetes mellitus: Code(s): E11.9 - Type 2 diabetes mellitus without complications Status: Chronic (6) Hypothyroidism: Qualifiers: Hypothyroidism type: acquired Qualified Code(s): E03.9 - Hypothyroidism, unspecified Code(s): E03.9 - Hypothyroidism, unspecified Status: Chronic (7) Chronic GERD: Code(s): K21.9 - Gastro-esophageal reflux disease without esophagitis Status: Chronic DS: Summary Hospital Course Reason for hospitalization: Headache and blurred vision Hospital Course: Lianet Rausch is a 66-year-old female with type 2 diabetes mellitus, GERD, coronary artery vasospasm, OA, and hypoparathyroidism. She presented to the emergency room with complaints of blurred vision to the right eye.? The patient has a history of migraines however her migraines have dissipated since having a hysterectomy. She typically does not have migraines with aura, however, prior to admission she did report persistent headache with aura present.? She reported having a 3 day conference in [place] and was driving home when she developed headache to the right side and blurred vision to her right eye.? She stated at 1 point she had lost total vision of her right eye but this was transient.? The patient was also having floaters to her right eye and she seeing red boxes.? She stated that she pulled over on the side of the road and called her family members to come get her and bring her to the hospital.? She reported right-sided numbness to her right arm, approximately 30 minutes prior to the hospital arrival.? The symptoms lasted approximately 15 minutes and resolved on spontaneously.? No prior known history of strokes. Head CT demonstrated old infarcts involving the left cerebellum and left parietal occipital region, mild nonspecific cerebral white matter disease, which likely represents chronic small vessel ischemic disease, and sellar and suprasellar mass, possible pituitary macroadenoma. Neurology was consulted in the ED and recommended Brain MRI. Chest x-ray showed no acute cardiopulmonary disease.? The patient too aspirin 81 mg prior to arrival and then given a full-strength aspirin in the emergency room.? Her blood sugar was noted to be 162 and then 157.? Troponin was negative x2.? She was negative for influenza A/B and COVID.? The patient was admitted for observation status and further evaluation by neurology for TIA and pituitary adenoma. Patient presented to the ED with c/o right facial and right side numbness that was transient. CT head and brain MRI demonstrated old strokes and pituitary macroadenoma 2cm in size. Neurology was consulted. Carotid dopplers showed less than 50% stenosis bilaterally. Echocardiogram was negative for PFO. She was monitored on telemetry and did not demonstrate arrhythmia. BP remained stable and she was continued on aspirin therapy, The MRI brain results were discussed with the patient and her spouse. She vocalized wanting to see a neurosurgeon at [facility] for further evaluation of pituitary macroadenoma and reported contacts at
[2022-06-17] MEDS: ACETAMINOPHEN 325 MG TABLET 650 MG PO (15:35)
[2022-06-17 16:00] VITALS: PULSE 81
[2022-06-21 20:17] LABS: Adrenocorticotropic Hormone 59 pg/mL (6-50)
[2022-06-22 15:14] LABS: Prolactin 19.7 ng/mL (***)
[2022-06-28 09:12] LABS: Z Score Female -1.1 SD (-2.0 - +2.0)
== END 2022-06-17 16:16 | disposition home or self-care (01) ==
LOC: ANHED 17:13 → ANH2MED 18:02
PROVIDERS: Nurse Practitioner; Nurse Practitioner Family; Admitting Provider Internal Medicine; Emergency Provider Emergency Medicine; Visit Provider Internal Medicine
DX: D35.2 Benign neoplasm of pituitary gland (principal); G45.9 Transient cerebral ischemic attack, unspecified; G43.909 Migraine, unspecified, not intractable, without status migrainosus; E11.9 Type 2 diabetes mellitus without complications; E03.9 Hypothyroidism, unspecified; I20.1 Angina pectoris with documented spasm; E20.9 Hypoparathyroidism, unspecified; K21.9 Gastro-esophageal reflux disease without esophagitis; R20.0 Anesthesia of skin; H53.8 Other visual disturbances; I08.1 Rheumatic disorders of both mitral and tricuspid valves; M19.90 Unspecified osteoarthritis, unspecified site; F10.90 Alcohol use, unspecified, uncomplicated; Z20.822 Contact with and (suspected) exposure to COVID-19; G93.9 Disorder of brain, unspecified; R90.82 White matter disease, unspecified; Z86.73 Personal history of transient ischemic attack (TIA), and cerebral infarction without residual deficits; Z79.82 Long term (current) use of aspirin; Z79.84 Long term (current) use of oral hypoglycemic drugs; Z79.899 Other long term (current) drug therapy
CPT/HCPCS: 36415; 70450; 70553; 71045; 80053; 82024; 82948; 83036; 84146; 84305; 84439; 84443; 84480; 84484; 85025; 85610; 85730; 87636; 93005; 93308; 93880; 96375; 99285; A9270; A9577; G0378

== ENCOUNTER 2022-08-04 01:25 | Day surgery (SDC) | payer MEDICARE, SELFPAY ==
[2022-08-03 13:38] VITALS: BMI 26.5
[2022-08-04] VITALS (12 sets, daily range): BP systolic 115–155; BP diastolic 60–94; PULSE 70–88; RESP 10–17; TEMP 36.9; O2SAT 94–99; BMI 27.4
[2022-08-04 08:05] LABS: Hemoglobin 11.6 g/dL (12.0-15.0); Mean Corpuscular HGB Conc 32.2 g/dl (32-36); Mean Corpuscular Hemoglobin 26.5 pg (26-34); Mean Corpuscular Volume 82.4 fl (80-100); Mean Platelet Volume 9.8 fl (7.4-10.4); Platelet Count Result 346 k/mm3 (150-375); Red Blood Count 4.37 M/mm3 (4.2-5.4); Red Cell Distribution Width 14.3 % (11.5-14.5); White Blood Count 6.2 K/mm3 (4.5-10.0)
[2022-08-04 08:14] LABS: INR 0.9; Prothrombin Time 11.9 Seconds (11.1-14.7)
[2022-08-04 08:15] LABS: Anion Gap 6 mmol/L (8-16); Blood Urea Nitrogen 10 mg/dL (7-17); Calcium 8.8 mg/dL (8.4-10.2); Carbon Dioxide 25 mmol/L (22-30); Chloride 105 mmol/L (98-107); Estimated CRCL calculation 109 ml/min; Estimated Glomerular Filt Rate > 60; Glucose 199 mg/dL (65-110); Potassium 3.8 mmol/L (3.4-5.0); Sodium 136 mmol/L (137-145)
--- NOTE | 2022-08-04 08:53 | WPDHPUPDATE1 ---
History and Physical Update Update Date/Time: 08/04/22 08:53 Pt w/ TIA in May, and Echo showing an atiral shunt w/ Valsalva, not well visualized. Here for [facility] for further characterization, possible closure. H/O other TIAs/small CVAs.. Also has a pituatiary microadenoma and will see neurosurgeon next week. No esophageal problems other than GERD. History and Physical has been reviewed, including an updated exam of the patient. There are NO changes in the patient's condition. Risks, benefits, and alternatives have been discussed and questions answered. Patient agrees to proceed with procedure.
--- NOTE | 2022-08-04 08:54 | WPDMODSED ---
Moderate Sedation Note-Pt Data Patient Data Diagnosis: TIA in May Present Complaint: History of strokes, TIA in May, atrial shunt noted by echo in May. May proceed with closure at some point. Here for further characterization of the atrial septum and possible PFO. Procedure to be performed/Plan: Conscious sedation [facility] Allergies Allergy/AdvReac Type Severity Reaction Status Date / Time pantoprazole [From Protonix] Allergy irregular Verified 08/04/22 07:44 heart rate alcohol AdvReac Intermediate Flushing Verified 08/04/22 07:44 Home Medications Medication Instructions Recorded Confirmed Type metformin 500 mg tablet 500 mg PO DAILY 07/26/19 08/03/22 History (Glucophage) esomeprazole magnesium 20 mg 20 mg PO DAILY 07/27/19 08/03/22 History capsule,delayed release (Nexium) aspirin 81 mg tablet 81 mg PO DAILY 03/26/22 08/03/22 History levothyroxine 75 mcg tablet 75 mcg PO DAILY 03/26/22 08/03/22 History (Synthroid) meloxicam 7.5 mg tablet 7.5 mg PO DAILY 03/26/22 08/03/22 History nitroglycerin 0.4 mg sublingual 0.4 mg sublingual Q5M PRN chest 03/28/22 08/03/22 Rx tablet pain #10 tabs amlodipine 5 mg tablet (Norvasc) 2.5 mg PO DAILY 06/17/22 08/03/22 History atorvastatin 40 mg tablet 40 mg PO DAILY 08/03/22 08/03/22 History coenzyme Q10 50 mg capsule (Co 50 mg PO DAILY 08/03/22 08/03/22 History Q-10) hyalur ac-chond sul-colg II-AA 40 1 cap PO DAILY 08/03/22 08/03/22 History mg-80 mg-400 mg capsule (Hyaluronic Acid(with chondroitin-collagenII)) lutein 40 mg capsule 40 mg PO DAILY 08/03/22 08/03/22 History metformin 500 mg tablet 1,000 mg PO BID 08/03/22 08/03/22 History metoprolol tartrate 25 mg tablet 12.5 mg PO DAILY 08/03/22 08/03/22 History omega-3 fatty acids 1,000 mg PO DAILY 08/03/22 08/03/22 History Current Medications: Active Medications Sodium Chloride (Normal Saline Iv) 1,000 mls @ 30 mls/hr IV CONT .Q24H DILLON Sedation/Anesthesia: No previous sedation/anesthesia problems (including family history). [facility] Past Medical History Medical History Chronic GERD Coronary artery vasospasm Hypercholesterolemia Hyperparathyroidism Status post parathyroidectomy x1. Hypothyroidism Left ureteral calculus Migraine Pituitary macroadenoma Type 2 diabetes mellitus Recent hemoglobin A1c was 6.6. Surgical History Surgical History H/O cardiac catheterization H/O hysterectomy for benign disease History of appendectomy History of bilateral knee replacement History of breast biopsy With benign histology. History of cholecystectomy History of parathyroidectomy X1. History of total abdominal hysterectomy and bilateral salpingo-oophorectomy History of ureter stent Hx of breast reduction, elective Family History Family History Father Acute myocardial infarction Diabetes mellitus Social History Social History Social History: The patient lives in [place] with her . She designates her , Brian, as her surrogate decision maker and she wishes to be a full code. 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 She is a lifelong nonsmoker and denies drug abuse. Drinks alcohol occasionally code status full code Smoking status: Former smoker Smoking end date: 07/31/73 Alcohol intake: never Substance use: never Substance use type: does not use Lack of Transportation: No Lack of Food: Never True Current Housing: I Have Housing Concerned About Future Housing: No Difficulty Paying Gas/Electric Bills: No Difficulty Paying for Meds: No Currently Unemployed: No Education: Master's Degree or Higher Difficulty w/ Childcare or Family Care: No Living arrangements: with family Gender ident
--- NOTE | 2022-08-04 09:33 | PM.OP ---
Procedure Note - Brief Procedure Note - Brief Date of procedure: 08/04/22 Pre-op diagnosis: TIA, stroke, possible future PFO closure History of strokes, TIA in May, atrial shunt noted by echo in May.? May proceed with closure at some point.? Here for further characterization of the atrial septum and possible PFO. Also has history of migraines, and pituitary micro adenoma which 20 to be addressed. Post-op diagnosis: Other (Redundant atrial septum, patent foramen ovale with shunting during Valsalva.) Procedure performed: Conscious sedation Transesophageal echo Description of procedure: Uneventful transesophageal echo Surgeon: Shannan Martin MD Condition: Stable Disposition: Observation Findings: Redundant atrial septum, patent foramen ovale with shunting during Valsalva.. Minimal aortic atherosclerosis
--- NOTE | 2022-08-04 09:36 | P.PCNTEE_ITS ---
[facility] TransEsophageal Echocardiogram Date of procedure: 08/04/22 Procedure Type: Conscious sedation Transesophageal echo Diagnosis: TIA in May Indications: History of strokes, TIA in May, atrial shunt noted by echo in May.? May proceed with closure at some point.? Here for further characterization of the atrial septum and possible PFO. Also history of migraines. Has a pituitary micro adenoma which will need to be addressed as well. Image Quality: Good Findings: Conscious sedation: Assessment: The patient has no history of anesthesia problems. The patient's oropharynx is clear. The patient was deemed to be a good candidate for conscious sedation. The patient had continuous hemodynamic and oximetric monitoring during the procedure. Start time: 9:06 a.m. Completion time: 9:25 a.m. Total conscious sedation time: 19 minutes Medications Used: Versed 3 mg, fentanyl 100 mcg IV push Trained observer: Chanelle Mcdaniel RN Outcome: The patient tolerated the procedure well with no complications. Procedure: After informed consent the patient had Hurricaine spray the hypopharynx. The patient had conscious sedation as described above. The transesophageal echo probe was introduced in the esophagus without difficulty. Imaging was obtained in multiplane views. Agitated saline was injected to evaluate for intracardiac shunting. The patient tolerated the procedure well with no complications. Findings: The left atrium was normal. There is no thrombus present in the left atrium or left atrial appendage. The atrial septum redundant and mildly aneurysmal, with a probable PFO by 2D imaging. Mitral valve appeared normal, with no stenosis or prolapse. The left ventricle had had normal size and thickness with good contractility of all segments. The ejection fraction is estimated to be: 60-65%. The aortic root and valve were normal. The ascending a ty was normal. The aortic arch and descending thoracic aorta showed minimal atherosclerosis. The right atrium, tricuspid valve, right ventricle, pulmonic valve and pulmonic artery were all normal. A Eustachian valve is present. There is no pericardial effusion. When agitated saline was injected intravenously there was no evidence of intracardiac shunting during normal respiration, but a small amount of right to left shunting was demonstrated with Valsalva.. Colorflow Doppler Findings: PFO by colorflow. Trace mitral regurgitation. Conclusions: Normal left ventricular function Minimal aortic atherosclerosis Redundant and mildly aneurysmal atrial septum with a patent foramen ovale. No shunt demonatrated during normal respiration. Mild right to left shunting with Valsalva. The shunt demonstrated on this study is not as impressive as the shunt demonstrated by Valsalva with her limited Echo study done in May, which showed a few beats of marked opacification of the left atrium and ventricle with Valsalva.
--- NOTE | 2022-08-04 09:37 | SUR.PHASEII ---
Pt resting comfortably in bed, at bedside. Pt denies pain, VSS, NAD noted, pt answers questions appropriately, continue to monitor.
== END 2022-08-04 10:39 | disposition home or self-care (01) ==
PROVIDERS: Visit Provider Internal Medicine Cardiovascular Disease
PROC: (CPT 93312; principal; 2022-08-04 08:30)
DX: Q21.12 Patent foramen ovale (principal); E11.9 Type 2 diabetes mellitus without complications; E78.00 Pure hypercholesterolemia, unspecified; K21.9 Gastro-esophageal reflux disease without esophagitis; E03.9 Hypothyroidism, unspecified; Z79.84 Long term (current) use of oral hypoglycemic drugs; Z87.891 Personal history of nicotine dependence
CPT/HCPCS: 36415; 80048; 85027; 85610; 93312; 93320; 93325; J2250; J3010; J7030

== ENCOUNTER 2024-10-25 14:07 | Emergency (ER) | payer MEDICARE, SELFPAY ==
--- NOTE | ~2024-10-25 | XR_ITS ---
EXAMINATION: XR hand RT min 3V DATE: 10/25/2024 14:27 INDICATION: Right hand injury. TECHNIQUE: 3 views of right hand were obtained. COMPARISON: None. FINDINGS: There is radial angulation of third distal phalanx with respect to the middle phalanx and u lnar angulation of third and fourth middle phalanges with respect to the proximal phalanges. No fract ure. There is severe osteoarthritis of triscaphe joint and first carpometacarpal joint. There is mode rate osteoarthritis of second and third metacarpophalangeal joints. There is mild osteoarthritis of s ome of the metacarpophalangeal joints and interphalangeal joints. There is severe osteoarthritis of s econd-fourth distal interphalangeal joints, moderate osteoarthritis of fifth distal interphalangeal j oint, and severe osteoarthritis of third and fourth proximal interphalangeal joints. IMPRESSION: 1. Polyarticular osteoarthritis. Reviewed, dictated and finalized at location A.
--- OUTSIDE RECORDS SUMMARY | 2024-10-25 14:09 | XMS_ITS | Encounter Summary ---
Author Organization [facility] Healthcare Address [address] [place] [address] Care Team Providers Care Scratch Finisher Name Role Phone Ashok Le MD Primary Care Provider [phone] Malcolm Curry MD Unavailable [phone] Phill Aranda MD Unavailable [phone] Reason for Visit * Reason Comments Chart Review ACO Quality Aetna Statin Gap in Care - Patient is not currently prescribed a statin but may benefit to reduce risk for heart attack and stroke. No history of statin intolerance. Was on high-intensity statin (ie, Atorvastatin 80 mg daily) previously but LDL was above goal at 160 mg/dL (06/19/2022), so it was discontinued. Currently, LDL above goal < 55 mg/dL (goal per ACC 2021 ECDP guidance). 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 continue Repatha without statin Encounter Details Date Type Department Care Team (Late st Contact Info) Description 10/25/2024 ACO Clinical Pharmacist [facility] Accountable Care Organization [address] [place] [address] Maureen Bravo RPh [address] [place] [address] DR HENAO [address] [place] [address] Social History Tobacco Use Types Packs/Day Years Used Date Smoking Tobacco: Never Smokeless Tobacco: Never Alcohol Use Standard Drinks/Week Comments Yes 0 (1 standard drink = 0.6 oz pur e alcohol) Humiliation, Afraid, Rape, and Kick questionnair e Answer Date Recorded Within the last year, have y ou been afraid of your partner or ex-partner? No 07/20/2023 Within the last year, have y ou been humiliated or emotionally abused in other ways by your partner or ex-partner? No Within the last year, have y ou been kicked, hit, slapped, or otherwise physically hurt by your partner or ex-partner? No 07/20/2023 Within the last year, have y ou been raped or forced to have any kind of sexual activity by your partner or ex-partner? No 07/20/2023 AUDIT-C Answer Date Recorded Q1: How often do you have a drink containing alc ohol? Monthly or less 03/13/2024 Q2: How many drinks containi ng alcohol do you have on a typical day when you are drinking? 1 or 2 03/13/2024 Q3: How often do you have si x or more drinks on one occasion? Never 03/13/2024 PHQ-2 Answer Date Recorded PHQ-2 Total Score (If total score is 3 or more points, staff should administer the PHQ-9) 0 06/19/2022 Personal Safety Answer Date Recorded Have you ever been in or are you currently in a harmful physical or emotional relationship or is someone making you feel afraid or unsafe? Denies 03/13/2024 Comments No Sex and Gender Information Value Date Recorded Sex Assigned at Not on file Legal Sex Female 2:48 AM APARTMENT ASSISTANT MANAGER Gender Identity Female 08/28/2023 9:23 AM APARTMENT ASSISTANT MANAGER Sexual Orientation Not on file documented as of this encounter Miscellaneous Notes * Telephone Encounter - Maureen Bravo, [facility] - 10/25/2024 9:27 AM CDT ACO Statin Gap Note Patient is on Aetna report for not meeting the following Medicare Stars measures: Persons with diabetes on statin therapy (SUPD) Persons with ASCVD on moderate- or high-intensity statin (SPC) Per chart review, likely populating on this report because: Patient is not currently prescribed a statin but may benefit from one to reduce risk for heart attack and stroke. No history of statin intolerance. Was on high-intensity statin therapy (ie, Atorvastatin 80 mg daily) previously but LDL was above goal at 160 mg/dL (06/19/2022), so it was discontinued. Currently, LDL continues above goal < 55 mg/dL (goal per ACC 2021 ECDP guidance). 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 continue Repatha without statin at that time Recommended Action: Continue care plan per cardiology: Continue current therapy - Repatha 140 mg under the skin every 2weeks Maureen Bravo, ChaD, BCACP Clinical Pharmacist Specialist [facility] ([facility] & Accountable Care Organization (ACO) FYI - Objective/Lab Data: Lab Results Component Value Date LDLCALC 83 09/20/2023 LDLCALC 94 03/30/2023 LDLCALC 160 (H) 06/19/2022 LDL 209 12/01/2015 SCRLDL 104 (A) 09/09/2024 Lab Results Component Value Date ALT 24 11/15/2023 AST 24 11/15/2023 ALKPHOS 127 11/15/2023 BILITOT 0.2 11/15/2023 The ASCVD Risk score (Augustin DAVIS, et al., 2019) failed to calculate for the following reasons: Risk score cannot be calculated because patient has a medical history suggesting prior/existing ASCVD 2021 ACC ECDP CRITERIA FOR DEFINING VERY HIGH-RISK OF FUTURE ASCVD EVENTS Major ASCVD Events High-Risk Conditions History of ischemic stroke Age > or = 65 years History of ischemic stroke Diabetes Number of Major ASCVD Events: 1 Number of High-Risk Conditions: 3 The 2021 ACC Expert Consensus Decision Pathway defines patients with ASCVD to be Very High-Risk for Future ASCVD Events who have history of multiple major ASCVD events or one major event and multiplehigh-risk conditions. LDL goal recommendations: Very High-Risk (LDL less than 55 mg/dL) Not Very High-Risk (LDL less than 70 mg/dL) Statin Intensity Chart High-Intensity Lowers LDL-C by >=50% Moderate-Intensity Lowers LDL-C by 30-49% Low-Intensity Lowers LDL-C by <30% Atorvastatin 40-80mg Atorvastatin 10-20mg Rosuvastatin 20-40mg Rosuvastatin 5-10mg Simvastatin 20-40mg Simvastatin 10mg Pravastatin 40-80mg Pravastatin 10-20mg Lovastatin 40mg Lovastatin 20mg Fluvastatin 80mg daily Fluvastatin 20-40mg Pitavastatin 2-4mg Pitavastatin 1mg documented in this encounter Plan of Treatment Not on file documented as of this encounter Visit Diagnoses Not on filedocumented in this encounter Care Teams Scratch Finisher Relationship Specialty Start Date End Date Ashok Le MD [address] [place] [address] PCP - General 10/28/16 Malcolm Curry MD [address] [place] [address] Consulting Physician Cardiology 12/13/18 [place] [address] [place] [address] [address] [facility] [place] [address] Consulting Physician Cardiology 08/22/22 documented as of this encounter
--- OUTSIDE RECORDS SUMMARY | 2024-10-25 14:09 | XMS_ITS | Encounter Summary ---
Author Organization [facility] Address [address] [place] [address] Phone Care Team Providers Care Tag Machine Operator Name Role Phone Ashok Le MD Primary Care Provider [phone] Malcolm Curry MD Unavailable [phone] Phill Aranda MD Unavailable Encounter Details Date Type Department Care Team (Late st Contact Info) Description 10/25/2024 Telephone [facility] Surgery [facility] Floor [address] [place] [address] Marissa Zambrano, RN Social History Tobacco Use Types Packs/Day Years [...] on file Legal Sex Female 2:48 AM HELP DESK TEAM LEADER Gender Identity Female 08/28/2023 9:23 AM HELP DESK TEAM LEADER Sexual Orientation Not on file documented as of this encounter Miscellaneous Notes * Telephone Encounter - Marissa Zambrano RN - 10/25/2024 9:06 AM CDT Called and spoke with patient to request information regarding records/op note from previous surgery in 2003. Pt reports records should be located with [facility] on [facility]. Dr. Silva was previous surgeon. Marissa Zambrano RN Clinical Nurse Coordinator to Dr. Hamlet Shahid and Dr. Margo Barajas [facility] [employer] Department of Surgery - Division of Surgical Oncology documented in this encounter Plan of Treatment Not on file documented as of this encounter Visit Diagnoses Not on filedocumented in this encounter Care Teams Tag Machine Operator Relationship Specialty Start Date End Date Ashok Le MD [address] [place] [address] PCP - General 10/28/16 Malcolm Curry MD [address] [place] [address] Consulting Physician Cardiology 12/13/18 Phill Aranda MD [address] [facility] [address] [place] [address] Consulting Physician Cardiology 08/22/22 documented as of this encounter
--- OUTSIDE RECORDS SUMMARY | 2024-10-25 14:09 | XMS_ITS | Encounter Summary ---
Author Organization [facility] Healthcare Address [address] [place] [address] Care Team Providers Care Nursery Supervisor Name Role Phone Ashok Le MD Primary Care Provider [phone] Malcolm Curry MD Unavailable [phone] Hortencia Fernandez RN Unavailable [phone] Phill Aranda MD Unavailable Reason for Visit * Reason Onset Date Comments Scheduling Appointments 01/26/2021 Confirmi ng mammogram appt- no answer Encounter Details Date Type Department Care Team (Late st Contact Info) Description 01/26/[address] [facility] [address] [place] [address] Renetta Garcia RT Scheduling Appointments (Confirming mammogram appt- no answer ) Social History Tobacco Use Types Packs/Day Years Used Date Smoking Tobacco: Former Smokeless Tobacco: Never Alcohol Use Standard Drinks/Week Comments Yes 0 (1 standard drink = 0.6 oz pur e alcohol) Comments No Sex and Gender Information Value Date Recorded Sex Assigned at Not on file Legal Sex Female 2:48 AM CAMPAIGN ASSOCIATE Gender Identity Female 08/28/2023 9:23 AM CAMPAIGN ASSOCIATE Sexual Orientation Not on file documented as of this encounter Plan of Treatment Not on file documented as of this encounter Visit Diagnoses Not on filedocumented in this encounter Additional Health Concerns Infection Onset Date Last Indicated Resolved Time COVID: Suspected 07/05/2021 07/05/2021 07/05/2021 10:38 AM CAMPAIGN ASSOCIATE COVID: Suspected 07/05/2021 07/05/2021 07/05/2021 7:56 PM CAMPAIGN ASSOCIATE COVID: Suspected 08/23/2021 08/23/2021 08/23/2021 10:24 PM CAMPAIGN ASSOCIATE COVID: Suspected 01/06/2022 01/06/2022 01/06/2022 9:50 PM CDT COVID: Suspected 01/13/2022 01/13/2022 01/14/2022 3:05 AM CDT COVID: Suspected 01/13/2022 01/13/2022 01/14/2022 4:19 PM CDT COVID: Suspected 07/06/2022 07/06/2022 07/06/2022 6:11 PM CAMPAIGN ASSOCIATE COVID: Suspected 07/06/2022 07/06/2022 07/06/2022 11:48 PM CAMPAIGN ASSOCIATE documented as of this encounter Care Teams Nursery Supervisor Relationship Specialty Start Date End Date Ashok Le MD [address] [place] [address] PCP - General 10/28/16 Malcolm Curry MD [address] [place] [address] Consulting Physician Cardiology 12/13/18 Hortencia Fernandez, RN [address] [place] [address] Nurse Navigator 06/28/22 06/01/23 [place] [address] [place] [address] [address] [place] [address] Consulting Physician Cardiology 08/22/22 documented as of this encounter
--- OUTSIDE RECORDS SUMMARY | 2024-10-25 14:09 | XMS_ITS | Encounter Summary ---
Author Organization [facility] Address [address] [facility] [place] [address] Care Team Providers Care Coal Washer Tender Name Role Phone Hamlet Adam MD Unavailable [phone] Ashok Le MD Primary Care Provider [phone] Reason for Visit * Reason Onset Date Comments Reschedule Appointment 09/30/2024 Encounter Details Date Type Department Care Team (Late st Contact Info) Description 09/30/2024 Telephone [facility] - ODD JOBS DAY WORKER [address] [place] [address] Imelda Gomez MD [address] [place] [address] Reschedule Appointment Social History Tobacco Use Types Packs/Day Years Used Date Smoking Tobacco: Never Smokeless Tobacco: Never Comments:smoked as teenager Alcohol Use Standard Drinks/Week Comments Yes 0 (1 standard drink = 0.6 oz pur e alcohol) occ Sex and Gender Information Value Date Recorded Sex Assigned at Not on file Gender Identity Not on file Sexual Orientation Not on file documented as of this encounter Functional Status Functional Status Response Date of Assess ment Is person deaf or have serious hearing difficult y? No 02/20/2016 Is person blind or have serious difficulty seein g? No 02/20/2016 Does person have serious dif ficulty walking/climbing stairs? No 02/20/2016 Does person have difficulty dressing/bathing? No 02/20/2016 Does person have difficulty doing errands alone? No 02/20/2016 Cognitive Status Response Date of Assessm ent Does person have difficulty concentrating/remembering/making decisions? No 02/20/2016 documented as of this encounter Miscellaneous Notes * Telephone Encounter - Imelda Loya RN - 09/30/2024 9:04 AM ORNAMENTAL BRONZE WORKER Call forwarded to breakfast manager Rupinder and cc'd to Dr Gomez MENTAL BRONZE WORKER * Telephone Encounter - Blaise Tenorio - 09/30/2024 8:56 AM CST Pt calling needing to reschedule surgery for 10/01/2024 Lianet is ill and will not be abl to make the surgery please give her a call to get this appointment rescheduled. MENTAL BRONZE WORKER documented in this encounter Plan of Treatment Upcoming Encounters Date Type Department Care Team (Latest Contact Info) Description 11/12/2024 7:15 AM CDT Hospital Encounter [facility] [address] [place] [address] Imelda Gomez MD [address] [place] [address] Surgery General 11/12/2024 7:15 AM CDT - 11/12/2024 10:48 AM CDT Surgery [facility] [address] [place] [address] Imelda Gomez MD [address] [place] [address] ANTERIOR COLPORRHAPHY 11/27/2024 8:30 AM CDT Office Visit [facility] - ODD JOBS DAY WORKER [address] [place] [phone] Imelda Gomez MD [address] [place] [address] Scheduled Procedures Name Priority Associated Diagnoses Date/Ti me COLPORRHAPHY ANTERIOR REPAIR Diagnosis unknown 11/12/2024 7:15 AM CDT SLING OPERATION FEMALE Diagnosis unknown 11/12/2024 7:15 AM CDT documented as of this encounter Visit Diagnoses Not on filedocumented in this encounter Care Teams Coal Washer Tender Relationship Specialty Start Date End Date Ashok Le MD [address] [place] [phone] PCP - General 05/01/12 Hamlet Adam MD Orthopedic Surgery 05/01/12 documented as of this encounter
--- OUTSIDE RECORDS SUMMARY | 2024-10-25 14:09 | XMS_ITS | Clinical Summary ---
Author Organization [facility] Address [address] [place] [address] Care Team Providers Care Financial Auditor Name Role Phone Hamlet Adam MD Unavailable [phone] Ashok Le MD Primary Care Provider Source Comments [facility],non-owned Affiliates and Associated Physician Practices is amultiple site organization consisting of ambulatory clinics and hospital sitesin [place], [place], [place] and [place]. This disclosure is being madepursuant to the Care Everywhere program and may not contain all information available regarding this patient. Last updated 18.[facility] Allergies No known active allergies Medications * Be aware that medications may not be up to date on this document. Alwaysverify current medications with the patient. Medication Sig Dispensed Refills Start Date End Date Status Cholecalciferol ([facility]S VIT D 5000 HIGH-POTENCY PO) Take 1 Tab by mouth once daily. Active Louisa-3 Fatty Acids (FISH OIL) 1200 MG CAPS Take 1 Cap by mouth once daily Active Coenzyme Q10 (CO Q-10) 50 MG CAPS Take 4 (four) capsules by mouth once daily Active Lutein 40 MG Take by mouth once daily Active GNP GARLIC EXTRACT PO Take 500 mg by mouth once daily Active Hyaluronic Acid-Vitamin C (HYALURONIC ACID PO) Take 100 mg by mouth once daily Active cyanocobalamin (VITAMIN B-12) 1000 MCG tablet Take 1 (one) tablet by mouth once daily Active amLODIPine (Norvasc) 2.5 MG tablet Take 1 (one) tablet by mouth once daily 05/22/2024 Active esomeprazole (NexIUM) 40 MG capsule Take 1 (one) capsule by mouth once daily 07/07/2024 Active Repatha SureClick 140 MG/ML auto-injector Inject 140 (one hundred forty) mg subcutaneously every 14 days 07/12/2024 Active Ozempic, 1 MG/DOSE, 4 MG/3ML pen Inject 0.5 (one-half) mg subcutaneously every 7 days 07/07/2024 Active levothyroxine (Synthroid) 88 MCG tablet Take 1 (one) tablet by mouth daily before breakfast Active metoprolol tartrate IR (Lopressor) 12.5 MG TABS tablet Take 1 (one) Half Tablet by mouth once daily Active Pyridoxine HCl (Vitamin B6) 100 MG TABS Active Collagen-Vitamin C 1000-10 MG TABS Take by mouth once daily Active BIOTIN 5000 PO Take by mouth once daily Active ASPIRIN 81 PO Take 81 mg by mouth once daily Active Hormone Cream Base (HRT Cream Base Women) CREA 30 [place] Testosterone 0.15% Progesterone 2.0% Apply 1 ml daily to skin 08/13/2024 Active ibandronate (Boniva) 150 MG tablet TAKE 1 TABLET BY MOUTH ONCE EVERY MONTH IN THE MORNING WITH GLASS OF WATER PRIOR TO FOOD. DO NOT LIE DOWN FOR 30 MINUTES. 09/11/2024 Active meloxicam (Mobic) 15 MG tablet Take 1 (one) tablet by mouth once daily 08/22/2024 Active metoprolol succinate XL 24hr (Toprol XL) 25 MG tablet 09/24/2024 Active Active Problems Problem Noted Date Diagnosed Date Pulmonary nodule 05/21/2024 Age-related osteoporosis wit hout current pathological fracture 01/22/2024 Overview (09/26/2024): 2023: -2.6 Cystocele, midline 01/22/2024 Hormone replacement therapy (HRT) 07/20/2023 Pituitary lesion 03/30/2023 MEN 1 (multiple endocrine neoplasia) 08/10/2022 Vitamin D deficiency 08/10/2022 Hyperparathyroidism 08/09/2022 Kidney stones 08/09/2022 Other specified hypothyroidism 08/09/2022 Type 2 diabetes mellitus wit hout complication, without long-term current use of insulin 08/09/2022 Coronary vasospasm 07/19/2022 Dyslipidemia 07/19/2022 Hyperlipidemia associated with type 2 diabetes m ellitus 07/19/2022 Left ventricular systolic dysfunction 07/19/2022 VT (ventricular tachycardia) 07/19/2022 Cerebrovascular accident (CVA) 06/19/2022 Migraine without aura and wi thout status migrainosus, not intractable 03/21/2019 Knee joint replacement by other means 02/14/2014 Osteoarthrosis involving lower leg 05/01/2012 Overview (10/24/2015): 2015 IMO Updt Encounters Date Type Department Care Team Description 09/30/2024 Telephone [facility] [address] [place] [address] Imelda Gomez MD Reschedule Appointment 09/26/2024 10:30 AM PREANALYTICS TEAM LEAD Procedure visit [facility] [address] [place] [phone] Adelaide Stevens APRN-TRAY ROOM WORKER Midline cystocele 09/26/2024 Travel 07/29/2024 Orders Only [facility] [address] [place] [phone] Imelda Gomez MD Midline cystocele 07/29/2024 Telephone [facility] [address] [place] [phone] Imelda oGmez MD Discuss Surgery from Last 3 Months Family History Medical History Relation Name Comments Diabetes - Type 2 Brother CAD (Coronary Artery Disease) Father Diabetes Father Diabetes - Type 2 Father Cancer - Breast Maternal Aunt High Cholesterol Mother Heart Failure Paternal Grandmother Depression Sister Diabetes - Type 2 Sister Relation Name Status Comments Brother Father Maternal Aunt Alive Mother Paternal Grandmother Sister Social History Tobacco Use Types Packs/Day Years Used Date Smoking Tobacco: Never Smokeless Tobacco: Never Tobacco Cessation:Counseling Given: Not Answered Comments:smoked as teenager Alcohol Use Standard Drinks/Week Comments Yes 0 (1 standard drink = 0.6 oz pur e alcohol) occ Sex and Gender Information Value Date Recorded Sex Assigned at Not on file Gender Identity Not on file Sexual Orientation Not on file Last Filed Vital Signs Vital Sign Reading Time Taken Comments Blood Pressure 128/67 09/26/2024 10:28 AM PREANALYTICS TEAM LEAD Pulse 82 02/20/2016 7:19 AM CDT Temperature 36.4 C (97.6 F) 09/26/2024 10:28 AM PREANALYTICS TEAM LEAD Respiratory Rate 16 02/20/2016 7:19 AM CDT Oxygen Saturation 97% 02/20/2016 7:19 AM CDT Inhaled Oxygen Concentration - - Weight 70.4 kg (155 lb 3.2 oz) 09/26/2024 10:28 AM PREANALYTICS TEAM LEAD Height 168.9 cm (5' 6.5 ) 09/26/2024 10:28 AM CS T Body Mass Index 24.67 09/26/2024 10:28 AM PREANALYTICS TEAM LEAD Plan of Treatment Upcoming Encounters Date Type Department Care Team (Latest Contact Info) Description 11/12/2024 7:15 AM CDT Hospital Encounter [facility] [address] [place] [address] Imelda Gomez MD [address] [place] [phone] Surgery General 11/12/2024 7:15 AM CDT - 11/12/2024 10:48 AM CDT Surgery [facility] [address] [place] [address] Imelda Gomez MD [address] [place] [phone] ANTERIOR COLPORRHAPHY 11/27/2024 8:30 AM CDT Office Visit [facility] [address] [place] [phone] Imelda Gomez MD [address] [place] [address] Scheduled Procedures Name Priority Associated Diagnoses Date/Ti me COLPORRHAPHY ANTERIOR REPAIR Diagnosis unknown 11/12/2024 7:15 AM CDT SLING OPERATION FEMALE Diagnosis unknown 11/12/2024 7:15 AM CDT Health Maintenance Due Date Last Done Comments COLOGUARD (AGES 45-75) - COLON CA SCREENING [address] COLONOGRAPHY - COLON CA SCREENING 1955 FIT - COLON CA SCREENING 1955 FLEX SIG - COLON CA SCREENING 1955 HEPATITIS C SCREENING 11/04/1973 DIABETES-SERUM CREATININE 11/08/1973 DTAP/TDAP/TD VACCINES (1 - Tdap) 11/08/1974 PNEUMOCOCCAL VACCINE 50+ (1 of 2 - PCV) 11/08/1974 DIABETES-STATIN 1995 ZOSTER VACCINE (1 of 2) 11/08/2005 COVID-19 VACCINE (4 - season) 2024 05/19/2021, 08/06/2020, 07/17/2020 INFLUENZA VACCINE (#1) 2024 , 05/19/2021, 05/31/2009 DEPRESSION SCREENING 07/31/2024 DIABETES - URINE PROTEIN SCREENING 07/31/2024 MEDICARE AWV CALENDAR YEAR 2024 DIABETES RETINOPATHY SCREENING 09/26/2024 DIABETES-FOOT EXAM WITH MONOFILAMENT 09/26/2024 DIABETES-HGB A1C 12/05/2024 06/07/2024, 11/13/2023 MAMMOGRAM 03/05/2026 03/05/2024, 08/0 12/2023, 01/21/2023, Additional history exists Respiratory Syncytial Virus (RSV) Vaccine Pt: or over 60 yrs (1 - 1-dose 75+ series) 11/08/2030 COLONOSCOPY - COLON CA SCREENING 10/02/2033 10/03/2023 Colorectal Cancer Screening 10/02/2033 BONE DENSITY TESTING Completed 12/11/2023, 07/06/2018, 11/27/2015 HEPATITIS B VACCINE Aged Out No longe r eligible based on patient's age to complete this topic HIB VACCINE Aged Out No longer eligi ble based on patient's age to complete this topic HPV VACCINE Aged Out No longer eligi ble based on patient's age to complete this topic MENINGOCOCCAL (Group B) VACCINE SHARED DECISION-MAKING Aged Out No longer eligible based on patient's age to complete this topic MENINGOCOCCAL GROUPS A/C/Y/W VACCINE Aged Out No longer eligible based on patient's age to complete this topic Medical Devices Implanted Type Area Clubhouse Manager Device Identifier Shelf Expiration Date Model / Serial / Lot Mor Bone Unity Hv Implanted:Qty: 1 on 01/23/2014 by Hamlet Adam MD at [facility] Right: [employer] 08/29/2015 [id number] / / [id number] Ty Tibial I Beam Fix Bar 71mm Implanted:Qty: 1 on 01/23/2014 by Hamlet Adam MD at [facility] Right: [employer]nee [employer] 11/28/2023 [id number] / / [id number] Kn Ins Vangurd Fem Cocr R-Intlok 62.5mm Implanted:Qty: 1 on 01/23/2014 by Hamlet Adam MD at [facility] Right: Knee [employer] 08/30/2023 [id number] / / [id number] Butn Pat Arcom Wire Polyeth Sm 31 X 8mm Implanted:Qty: 1 on 01/23/2014 by Hamlet Adam MD at [facility] Right: [employer]nee [employer] 10/28/2018 [id number] / / [id number] Brdg Tib Johanny Stbl 14mm X 71mm Implanted:Qty: 1 on 01/23/2014 by Hamlet Adam MD at [facility] Right: [employer]nee [employer] 12/28/2018 [id number] / / [id number] Brdg Tib Johanny Stbl 12mm X 71mm Implanted:Qty: 1 on 02/17/2016 by Hamlet Adam MD at [facility] Left: Knee [employer] 12/29/2020 [id number] / / [id number] Ty Tibial I Beam Fix Bar 71mm Implanted:Qty: 1 on 02/17/2016 by Hamlet Adam MD at [facility] Left: Knee [employer] 12/30/2025 [id number] / / [id number] Butn Pat Arcom Wire Polyeth Xsm 28 X 8 Implanted:Qty: 1 on 02/17/2016 by Hamlet Adam MD at [facility] Left: Knee [employer] 12/24/2020 [id number] / / [id number] Kn Ins Vangurd Fem Cocr L-Intlok 62.5mm Implanted:Qty: 1 on 02/17/2016 by Hamlet Adam MD at [facility] Left: Knee [employer] 12/14/2025 [id number] / / [id number] Mor Bone Unity Hv Implanted:Qty: 1 on 02/17/2016 by Hamlet Adam MD at [facility] Left: Knee [employer] 06/29/2017 [id number] / / [id number] Procedures Procedure Name Priority Date/Time Associated Diagnosis Comments URINALYSIS - POINT OF CARE (AMB) [facility] Routine 09/26/2024 12:41 PM PREANALYTICS TEAM LEAD Midline cystocele NV CYSTOMETROGRAM W/TIRE INSPECTOR&UP Routine 09/26/2024 12:26 PM PREANALYTICS TEAM LEAD Midline cystocele NV INSERT NON-INDWELLING BLADDER Routine 09/26/2024 12:26 PM PREANALYTICS TEAM LEAD Midline cystocele from Last 3 Months Results * URINALYSIS - POINT OF CARE (AMB) [facility] (09/26/2024 12:41 PM PREANALYTICS TEAM LEAD) Specific [place] UA 1.[address] [facility] [address] pH UA 6.[address] [facility] [address] WBC UA - [facility] [address] Nitrite UA - [facility] [address] Protein UA - [facility] [address] Glucose UA - [facility] [address] Ketones UA POCT - [facility] [address] Urobilinogen UA - [facility] [address] Comment:0.2 Bilirubin UA POCT - [facility] [address] Blood Urine POCT - [facility] [address] Urine URINE / Unknown 09/26/2024 1 2:41 PM PREANALYTICS TEAM LEAD Adelaide DEJESUS [facility] - POINT OF CARE [place] [address], [facility] [phone] * NV INSERT NON-INDWELLING BLADDER, NV CYSTOMETROGRAM W/TIRE INSPECTOR&UP (09/26/2024 12:26 PM PREANALYTICS TEAM LEAD) Narrative Adelaide Stevens APRN-CNP - 09/26/2024 12:26 PM PREANALYTICS TEAM LEAD Adelaide Stevens APRN-CNP 09/26/2024 12:36 PM Multichannel Urodynamic Testing - Procedure Note Indications: Multichannel urodynamic testing is being performed to fully evaluate the patient's voiding dysfunction. The risks, benefits and alternatives have been discussed with emphasis on discomfort and urinary tract infections. Procedure Details: The patient's urethral meatus was cleaned with Betadine.. A 7 Fr. Single sensor air-charged catheter was placed into the vagina. A 7 Fr. Dual sensor air-charged catheter was inserted into the urethra. Cystometrogram: The bladder was filled with room temperature water at a rate of 100 cc per minute. The patient tolerated this and she was found to have: First sensation (S1) at 85 cc. Sensation of fullness at 526 cc. Maximal cystometric capacity of 600 cc. Infusion stopped at 600 cc. She does have normal bladder compliance. She does not have loss of urine with a rise in detrusor pressure. Valsalva leak point pressure (VLPP): VLPP at 150 cc: No UI demonstrated VLPP at PENITENTIARY : No UI demonstrated Urethral pressure profilometry (UPP): Maximal urethral closure pressure (MUCP): 48 Leakage amount: none Voiding pressure study (TIRE INSPECTOR): She voided via urethral relaxation and valsalva. Her maximal detrusor during void (Pdet max) was 11 cm water. Her void was not phasic. Her post void residual by calculation during the voiding pressure study was 180 cc. Initial PVR was 260 cc. Adelaide DEJESUS PROCEDURE/M INOR SURGICAL ORDERABLES from Last 3 Months Advance Directives * Full Code (Latest Code Status on File) Date Activated Date Inactivated Comments 02/17/2016 1:42 PM 02/20/2016 3:02 PM * Full Code Date Activated Date Inactivated Comments 01/23/2014 10:22 AM 01/26/2014 1:04 PM Care Teams Financial Auditor Relationship Specialty Start Date End Date Ashok Le MD [address] [place] [phone] PCP - General 05/01/12 Hamlet Adam MD Orthopedic Surgery 05/01/12
--- OUTSIDE RECORDS SUMMARY | 2024-10-25 14:09 | XMS_ITS | Encounter Summary ---
Author Organization [facility] Address [address] [place] [address] Care Team Providers Care Glass Blowing Lathe Operator Name Role Phone Hamlet Adam MD Unavailable [phone] Ashok Le MD Primary Care Provider [phone] Reason for Visit * Reason Onset Date Comments Discuss Surgery 07/29/2024 Encounter Details Date Type Department Care Team (Late st Contact Info) Description 07/29/2024 Telephone [facility] [address] [place] [address] Imelda Gomez MD [address] [place] [address] Discuss Surgery Social History Tobacco Use Types Packs/Day Years [...] encounter Miscellaneous Notes * Telephone Encounter - Jesus Keller RN - 07/29/2024 2:51 PM CST Confirmed msg w/ Ms. Martini, wants to schedule surgery when DR Gomez is ready. Explained process: Dr Gomez has to place order, then goes to Rupinder, her surg project controls scheduler. She will call you after she is able to schedule and checks insurance. Please give her about a week, alan with the holiday this week. She agrees to plan. Grateful for call back. Note: She is hoping for end of July or beginning of Aug. GER ESTATE * Telephone Encounter - Ld Loredo - 07/29/2024 2:33 PM CST Pt calling to let dr know she is interested in having surgical procedure GER ESTATE documented in this encounter Plan of Treatment Upcoming Encounters Date Type Department Care Team (Latest Contact Info) Description 11/12/2024 7:15 AM CDT Hospital Encounter [facility] [address] [place] [address] Imelda Gomez MD [address] [place] [phone] Surgery General 11/12/2024 7:15 AM CDT - 11/12/2024 10:48 AM CDT Surgery [facility] [address] [place] [address] Imelda Gomez MD [address] [place] [phone] ANTERIOR COLPORRHAPHY 11/27/2024 8:30 AM CDT Office Visit [facility] [address] [place] [address] Imelda Gomez MD [address] [place] [address] Scheduled Procedures Name Priority Associated Diagnoses Date/Ti me COLPORRHAPHY ANTERIOR REPAIR Diagnosis unknown 11/12/2024 7:15 AM CDT SLING OPERATION FEMALE Diagnosis unknown 11/12/2024 7:15 AM CDT documented as of this encounter Visit Diagnoses Not on filedocumented in this encounter Care Teams Glass Blowing Lathe Operator Relationship Specialty Start Date End Date Ashok Le MD [address] [place] [address] [address] [place] [address] PCP - General 05/01/12 Hamlet Adam MD Orthopedic Surgery 05/01/12 documented as of this encounter
--- OUTSIDE RECORDS SUMMARY | 2024-10-25 14:09 | XMS_ITS | Encounter Summary ---
Author Organization [facility] Address [address] [place] [address] Phone Care Team Providers Care Acid Maker Name Role Phone Ashok Le MD Primary Care Provider [phone] Malcolm Curry MD Unavailable [phone] Phill Aranda MD Unavailable Encounter Details Date Type Department Care Team (Late st Contact Info) Description 10/25/2024 Telephone [facility] Surgery [facility] Floor [address] [place] [address] Marissa Zambrano, RN Social History [...] on file Legal Sex Female 2:48 AM MED ASST Gender Identity Female 08/28/2023 9:23 AM MED ASST Sexual Orientation Not on file documented as of this encounter Miscellaneous Notes * Telephone Encounter - Marissa Zambrano RN - 10/25/2024 12:15 PM CDT Spoke with Kaylee PAUL, will be faxing requested op note/pathology from 12/2003. Marissa Zambrano RN Clinical Nurse Coordinator to Dr. Hamlet Shahid and Dr. Margo Barajas [facility] [employer] Department of Surgery - Division of Surgical Oncology documented in this encounter Plan of Treatment Not on file documented as of this encounter Visit Diagnoses Not on filedocumented in this encounter Care Teams Acid Maker Relationship Specialty Start Date End Date Ashok Le MD [address] [place] [address] PCP - General 10/28/16 Malcolm Curry MD [address] [facility] [place] [address] Consulting Physician Cardiology 12/13/18 [place] [address] [place] [address] [address] [place] [address] Consulting Physician Cardiology 08/22/22 documented as of this encounter
--- OUTSIDE RECORDS SUMMARY | 2024-10-25 14:10 | XMS_ITS | Clinical Summary ---
Author Organization [facility] Address [address] [place] [address] Care Team Providers Care [employer] Business Analyst Name Role Phone Ashok Le MD Primary Care Provider [phone] Malcolm Curry MD Unavailable [phone] Phill Aranda MD Unavailable Allergies No known active allergies Medications lutein 10 mg tablet 10 mg. 0 0 08/21/19 14 Active hyalur ac-chond sul-colg II-AA (HYALURONIC ACID, CHOND-COLLGN,) 40-80-400 mg capsule 0 0 08/21/19 14 Active meloxicam (MOBIC) 7.5 mg tablet 7.5 mg. 0 0 08/21/19 14 Active co-enzyme Q-10 50 mg capsuleIndications :heart health Take 2 capsules (100 mg total) by mouth daily after lunch Active esomeprazole DR (NexIUM) 20 mg capsuleIndications :Treatment of Non-Bleeding Gastric Disorder Take 2 capsules (40 mg total) by mouth daily before breakfast Active iyagy-7-djg-epa-dp a-fish oil 1,050-1,200 mg capsuleIndications :hypertriglyceride peter Take 2 capsules by mouth every morning Active cholecalciferol (VITAMIN D-3) 5,000 unit capsuleIndications :Vitamin D Deficiency Take 1 capsule (5,000 Units total) by mouth every morning Active nitroglycerin (NITROSTAT) 0.4 mg SL tabletIndications: acute episode of anginal pain Place 1 tablet (0.4 mg total) under the tongue every 5 (five) minutes as needed for chest pain Active BIOTIN ORALIndications:he alth Take 5,000 mcg by mouth every other day Active cyanocobalamin (Vitamin B-12) 1,000 mcg tabletIndications: Prevention of Vitamin B12 Deficiency Take 1 tablet (1,000 mcg total) by mouth every morning Active zinc gluconate 30 mg tabletIndications: health Take 1 capsule by mouth every morning Active ascorbic acid (VITAMIN C) 500 mg tablet,chewableInd ications:health Take 1 tablet/chew tab (500 mg total) by mouth every morning Active sodium chloride (OCEAN) 0.65 % nasal sprayIndications:N derek Congestion Administer 1 spray into each nostril as needed for congestion Active ibuprofen (ADVIL,MOTRIN) 600 mg tabletIndications: Pain Take 1 tablet (600 mg total) by mouth every 6 (six) hours as needed for pain Active aspirin 81 mg enteric coated tabletIndications: Myocardial Reinfarction Prevention Take 1 tablet (81 mg total) by mouth every morning 30 tablet 04/17/20 23 Active Ozempic 1 mg/dose (4 mg/3 mL) pen injector injection Inject 0.5 mg under the skin once a week 06/10/20 23 Active metFORMIN (GLUCOPHAGE) 500 mg tablet Take 1 tablet (500 mg total) by mouth daily with breakfast Active metoprolol tartrate (LOPRESSOR) 25 mg immediate release tablet Take 0.5 tablets (12.5 mg total) by mouth daily 5 tablet 03/14/20 24 Active ibandronate (BONIVA) 150 mg tablet Take 1 tablet (150 mg total) by mouth every 30 (thirty) days Take in AM with glass of water prior to food, don't lie down for 30 minutes. 1 tablet 11 05/21/20 24 025 Active levothyroxine (SYNTHROID) 88 mcg tabletIndications: Other specified hypothyroidism Take 1 tablet (88 mcg total) by mouth daily 90 tablet 3 05/21/20 24 Active amLODIPine (NORVASC) 2.5 mg tabletIndications: hypertension Take 1 tablet (2.5 mg total) by mouth every morning 90 tablet 1 05/22/20 24 Active Repatha SureClick 140 mg/mL pen injectorIndication s:History of stroke,Hyperlipide peter associated with type 2 diabetes mellitus (HCC) INJECT 1ML UNDER THE SKIN EVERY 14 DAYS 2 mL 11 08/08/19 25 Active cream base no.9, bulk, cream 30 UT Testosterone 0.15% Progesterone 2.0% Apply 1 ml daily to skin 30 g 5 08/13/19 25 Active metoprolol XL (TOPROL-XL) 25 mg extended release tablet Take 1 tablet (25 mg total) by mouth daily 09/24/19 25 Active mupirocin (BACTROBAN) 2 % ointment Dissolve one inch of ointment in 240 ml adry med sinus rinse and irrigate each nostril with half of the bottle twice a day. 22 g 4 06/19/20 23 025 Discontin ued(Thera py completed ) Active Problems Problem Noted Date Diagnosed Date H/O Amplatzer atrial septal defect closure 09/27 Pulmonary nodule 05/21/2024 Age-related osteoporosis wit hout current pathological fracture 01/22/2024 Overview (01/22/2024): 2023: -2.6 Assessment & Plan (01/22/2024 10:05 AM CDT): She is still waiting to hear from endocrine Cystocele, midline 01/22/2024 Assessment & Plan (01/22/2024 10:08 AM CDT): She is wanting to put surgery off Pessary is irritating tissue Will refer to Dr. Gomez She will think about pessary refitting. Hormone replacement therapy (HRT) 07/20/2023 Assessment & Plan (01/22/2024 10:04 AM CDT): She is using testosterone and progesterone q od Assessment & Plan (07/20/2023 2:35 PM SPRAY OPERATOR): Will restart her progesterone and testosterone cream. Well woman exam 07/20/2023 Overview (01/22/2024): Lab: Pap:s/p hyst Labs with pcp Gibran:due Colonoscopy:2023- due 2028 BMD:4 -2.6 Assessment & Plan (01/22/2024 10:03 AM CDT): Complete exam done Assessment & Plan (07/20/2023 2:39 PM SPRAY OPERATOR): She declines exam today Pituitary lesion 03/30/2023 MEN 1 (multiple endocrine neoplasia) 08/10/2022 Vitamin D deficiency 08/10/2022 Hyperparathyroidism 08/09/2022 Kidney stones 08/09/2022 Type 2 diabetes mellitus wit hout complication, without long-term current use of insulin 08/09/2022 Other specified hypothyroidism 08/09/2022 Hyperlipidemia associated with type 2 diabetes m ellitus 07/19/2022 History of stroke 07/19/2022 VT (ventricular tachycardia) 07/19/2022 Palpitations 07/19/2022 Dyslipidemia 07/19/2022 Left ventricular systolic dysfunction 07/19/2022 Coronary vasospasm 07/19/2022 Cerebrovascular accident (CVA), unspecified mech anism 06/19/2022 Migraine without aura and wi thout status migrainosus, not intractable 03/21/2019 Knee joint replacement by other means 02/14/2014 Deviation of finger 08/21/2013 Overview (11/02/2016): Finger deformity Osteoarthrosis involving lower leg 05/01/2012 Overview (08/09/2022): 2015 IMO Updt Resolved Problems Problem Noted Date Diagnosed Date Resolved Date Pituitary adenoma 08/09/2022 12/20/2023 PFO (patent foramen ovale) 07/19/2022 0 12/20/2023 Encounters Date Type Department Care Team Description 10/25/2024 Telephone [facility] Surgery [facility] Floor 5 [place] [address] Marissa Zambrano RN 10/25/2024 ACO Clinical Pharmacist [facility] Care Organization [address] [place] [id number] Maureen Bravo RPh 10/25/2024 Telephone [facility] Surgery [address] [facility] Floor [address] [place] [phone] Marissa Zambrano RN 10/17/2024 11:58 AM CDT - 10/17/2024 11:59 PM CDT Hospital Encounter [facility] - MRI [address] [facility] Floor [address] [place] [address] Pituitary adenoma (HCC) Discharge Disposition: Discharge to home or self care 10/08/2024 Orders Only [facility] [address] [facility] [address] [place] [address] ProviderAmanda MD 09/27/2024 8:00 AM SPRAY OPERATOR Office Visit [facility]iology at [address] [place] [phone] Phill Aranda MD Hyperlipidemia associated with type 2 diabetes mellitus (HCC) (Primary Dx); VT (ventricular tachycardia) (HCC); Palpitations; Dyslipidemia; H/O Amplatzer atrial septal defect closure 09/25/2024 Results Follow-Up [facility] Endocrinology Metabolism and Lipid [address] [facility] Floor 1, [address] [place] [phone] Marixa Solomon MD 09/24/2024 12:35 PM SPRAY OPERATOR - 09/24/2024 11:59 PM SPRAY OPERATOR Hospital Encounter [facility] [address] [place] [address] Hyperparathyroidism Discharge Disposition: Discharge to home or self care 08/23/2024 Telephone [facility] Surgery [address] [facility] Floor 5 [place] [address] Marissa Zambrano RN 08/23/2024 Orders Only [facility] Surgery [address] [facility] Floor 5 [place] [address] Marissa Zambrano RN 08/13/2024 Telephone [facility] Scheduling [address] [place] [address] Debora Donohue 08/01/2024 Orders Only [facility] Care Organization [address] [place] [id number] Provider, MD Amanda 07/29/2024 Telephone [facility] Surgery [facility] Floor [address] [place] [address] Marissa Zambrano RN from Last 3 Months Immunizations Immunization Administration Dates Next Due H1N1 All Forms 05/31/2009 Influenza, Unspecified 05/31/2022 Td, adsorbed 12/05/2003 Surgical History Surgery Date Site/Laterality Comments PARATHYROIDECTOMY Parathyroidectomy KNEE ARTHROSCOPY Arthroscopy knee HYSTERECTOMY Hysterectomy TONSILLECTOMY Tonsillectomy CHOLECYSTECTOMY Cholecystectomy REDUCTION MAMMOPLASTY Breast reduction OOPHORECTOMY BREAST BIOPSY REDUCTION MAMMAPLASTY CARDIAC CATHETERIZATION 11/2018 and 02/2022 OTHER SURGICAL HISTORY 09/16/2022 PFO Closure BRAIN SURGERY 03/30/23 JOINT REPLACEMENT 01/2016 APPENDECTOMY 07/17/96 Medical History Medical History Date Comments Hx Other Medical right knee pain Disorder of thyroid Thyroid dise ase Diabetes mellitus (HCC) Fibrocystic breast Breast cyst Stroke (HCC) ocular stroke an d TIA Type 2 diabetes mellitus (HCC) Myocardial infarction (HCC) 02/2022 Sleep apnea GERD (gastroesophageal reflux disease) Years Arthritis Years Kidney stone 2002 Awareness under anesthesia PFO (patent foramen ovale) Hypothyroidism Pituitary adenoma (HCC) 08/09/2022 Hyperparathyroidism 2004 Multiple endocrine neoplasia (HCC) 05/2022 Vitamin D deficiency 2007 Hyperlipidemia 2010 Migraines 1969 Osteoporosis 04/30/24 Family History Medical History Relation Name Comments Diabetes Brother Juan TYPE 2 55y, [place] Father Ye Alcohol abuse Father Ye Cancer Father Ye Diabetes Father Ye TYPE 2 Heart attack Father Ye Cancer Maternal Grandmother Angélica Kidney cancer Maternal Grandmother Angélica KIDNEY Alzheimer's disease Mother Cathy Hyperlipidemia Mother Cathy Memory loss Mother Cathy Breast cancer Mother's Sister rommel Alzheimer's disease Other 1 Sister: Imelda Corley Fam brittany history of Alzheimer's Disease; Cancer Other 1 Sister: Imelda Corley Coronary artery disease Other 2 Fami ly history of Coronary artery disease; Diabetes Other 3 Family history of Diabetes mellitus; Hyperlipidemia Other 4 Family histor y of Hyperlipidemia; Diabetes Sister Ruchi TYPE 2 Relation Name Status Comments Brother Juan Father Ye Maternal Grandmother Angélica Mother Cathy Mother's Sister rommel Alive Other 1 Sister: Imelda Corley Other 2 Other 3 Other 4 Sister Ruchi Social History Tobacco Use Types Packs/Day Years Used Date Smoking Tobacco: Never Smokeless Tobacco: Never Tobacco Cessation:Counseling Given: Not Answered Alcohol Use Standard Drinks/Week Comments Yes 0 [...] on file Legal Sex Female 2:48 AM SPRAY OPERATOR Gender Identity Female 08/28/2023 9:23 AM SPRAY OPERATOR Sexual Orientation Not on file Obstetrics History Para Term AB IAB SAB Ectopic Multiple Livin g Live Births 4 4 4 Date Outcome GA Total Labor Labor/2nd/3rd Weight Sex Type Anes PTL Emily A1 A5 Name Clin Term Term Term Term Comments LMP: 1995 Last Filed Vital Signs Vital Sign Reading Time Taken Comments Blood Pressure 132/82 09/27/2024 8:05 AM SPRAY OPERATOR Pulse 82 09/27/2024 8:05 AM SPRAY OPERATOR Temperature 36.1 C (97 F) 07/08/2024 1:34 PM SPRAY OPERATOR Respiratory Rate 17 07/08/2024 1:34 PM SPRAY OPERATOR Oxygen Saturation 98% 09/27/2024 8:05 AM SPRAY OPERATOR Inhaled Oxygen Concentration - - Weight 68.9 kg (152 lb) 09/27/2024 8:05 AM SPRAY OPERATOR Height 167.6 cm (5' 6 ) 09/27/2024 8:05 AM SPRAY OPERATOR Body Mass Index 24.53 09/27/2024 8:05 AM SPRAY OPERATOR Plan of Treatment Health Maintenance Due Date Last Done Comments Hepatitis C Screening 1955 Dilated Eye Exam 1955 Foot Exam 1955 Hepatitis B Screening 11/08/1973 Pneumococcal vaccine 65+ (1 of 2 - PCV) 11/08/1974 DTaP/Tdap/Td Vaccine (1 - Tdap) 12/06/2003 4 Zoster Vaccine (1 of 2) 11/08/2005 Well Visit 65+ 11/08/2020 Albumin Creatinine Ratio, Urine 08/09/2022 Depression Screening 06/19/2023 06/19/2022 Influenza Vaccine (#1) 2024 05/31/2022 Fall Risk Assessment 10/02/2024 10/03/2023 eGFR 11/14/2024 11/15/2023, 03/0 07/2023, 04/13/2023, Additional history exists Hemoglobin A1C 12/05/2024 06/07/2024, 0411/2023, 03/13/2023, Additional history exists Breast Cancer Screening-Mammogram 03/05/2025 03/05/2024, 01/21/2023, 02/23/2021, Additional history exists Lipid Panel 09/09/2025 09/09/2024, 09/01, 03/30/2023, Additional history exists Osteoporosis Screening-Bone Density Scan 12/10/2025 12/11/2023, 07/06/2018, 11/27/2015 Colon Cancer Screening-Colonoscopy 10/02/2033 10/03/2023, 03/27/2018 Colon Cancer Screening-CT Colonography Discontinued 10/03/2023, 03/27/2018 Colon Cancer Screening-DNA Stool Discontinued 10/03/19 24, 03/27/2018 Colon Cancer Screening-FIT Discontinued 10/03/2023, Colon Cancer Screening-Sigmoidoscopy Discontinued 10/03/2023, 03/27/2018 Medical Devices Implanted Type Area In House Cra Device Identifier Shelf Expiration Date Model / Serial / Lot Meza Vascular Occluder Amplatzer Talisman Pfo 25-18mm [id number] - [id number] - [id number] Implanted:Qt y: 1 on 09/16/2022 by Juan Weiner MD PhD at [facility] Left Atrial Appendage Occluder [employer] 03/30/2025 9-PFO-25 [id number] / [id number] [employer] Graft Tissue Accelular Matrix Dermis Regn Medium 1.2 2.0mm Alloderm Select 2x4cm Rtu [id number] - [id number] Implanted:Qt y: 1 on 03/30/2023 by Michael Bucio MD at [facility] N/A: Brain [employer] [id number] 02/27/2025 [id number] / / [id number] Procedures Procedure Name Priority Date/Time Associated Diagnosis Comments MRI BRAIN W WO CONTRAST (PITUITARY) Schedule Routine, Read Routine (OP Routine) 10/17/2024 12:38 PM CDT Pituitary adenoma (HCC) US THYROID Schedule Routine, Read Routine (OP Routine) 09/24/2024 1:18 PM SPRAY OPERATOR Hyperparathyroidism LIPID PANEL Routine 09/09/2024 12:07 PM SPRAY OPERATOR HEMOGLOBIN A1C Routine 06/07/2024 1:31 PM SPRAY OPERATOR SCREENING MAMMOGRAM BILATERAL W STEVEN Schedule Routine, Read Routine (OP Routine) 03/05/2024 4:34 PM CDT Screening mammogram, encounter for DEXA AXIAL SKELETON BONE DENSITY 1 OR MORE SITES Schedule Routine, Read Routine (OP Routine) 12/11/2023 8:39 AM CDT Encounter for screening for osteoporosis Age-related osteoporosis without current pathological fracture EGFR Routine 11/15/2023 12:27 PM CDT Hyperparathyroidism COLONOSCOPY 10/03/2023 10:16 AM SPRAY OPERATOR ALBUMIN CREATININE RATIO, URINE Routine 08/09/2021 7:50 AM SPRAY OPERATOR from Last 3 Months or Most Recently Relevant to Health Maintenance Results * MRI Brain W WO Contrast (Pituitary) (10/17/2024 12:38 PM CDT) Anatomical Region Laterality Modality Head and Neck N/A Magnetic Resonan ce 10/17/2024 1:37 PM CDT Impressions 10/17/2024 2:47 PM CDT Stable postsurgical changes of pituitary adenoma resection without evidence of residual progressive disease. Unchanged hypoenhancing focus posterior to the cavernous ICA as detailed above. Dictated by: Lefty Mckeon M.D. The radiology attending physician has personally reviewed this study, and had reviewed and/or edited this written report and agrees with it. Electronically signed by: Phill Funes M.D. Narrative 10/17/2024 2:47 PM CDT EXAMINATION: Magnetic resonance imaging (MRI) of the brain and brainstem without and with contrast. 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 TECHNIQUE: Multiplanar multi-weighted MRI of the brain and brainstem was performed without without and with intravenous contrast using the pituitary protocol. This included acquisitions showing dynamic contrast enhancement of the sella turcica in the coronal plane and a post-contrast T1-Stealth sequence. Contrast information: 12 mL Gadoterate Meglumine IV COMPARISON: Multiple prior MRIs of the brain, most recently 08/29/2023. FINDINGS: Postsurgical changes of endoscopic in the nasal approach pituitary adenoma resection. Unchanged subcentimeter focus of hypoenhancement in the right sella centered at the cavernous right ICA (series 22 image 9), not significantly intervally changed. Residual homogenously enhancing pituitary tissue within the sella. The infundibulum is midline. The optic chiasm and orbits are normal. There is no abnormal contrast enhancement. Mild generalized parenchymal volume loss with corresponding prominence of the ventricular system. Old left cerebellar and left occipital lobe as well as left villarreal radiata infarcts. The scalp and calvarium are normal. The superior sagittal sinus demonstrates normal venous flow. The corpus callosum is normal in shape and signal intensity. The posterior fossa is unremarkable. The brainstem and craniocervical junction are unremarkable. The ventricles are normal in size and position without evidence of hydrocephalus. The paranasal sinuses are normal. The visualized portions of the mastoids are unremarkable. The orbits appear normal. Normal flow voids are demonstrated in the carotid arteries and basilar artery. Procedure Note Phill Funes MD - 10/17/2024 EXAMINATION: Magnetic resonance imaging (MRI) of the brain and brainstem without and with contrast. 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 TECHNIQUE: Multiplanar multi-weighted MRI of the brain and brainstem was performed without without and with intravenous contrast using the pituitary protocol. This included acquisitions showing dynamic contrast enhancement of the sella turcica in the coronal plane and a post-contrast T1-Stealth sequence. Contrast information: 12 mL Gadoterate Meglumine IV COMPARISON: Multiple prior MRIs of the brain, most recently 08/29/2023. FINDINGS: Postsurgical changes of endoscopic in the nasal approach pituitary adenoma resection. Unchanged subcentimeter focus of hypoenhancement in the right sella centered at the cavernous right ICA (series 22 image 9), not significantly intervally changed. Residual homogenously enhancing pituitary tissue within the sella. The infundibulum is midline. The optic chiasm and orbits are normal. There is no abnormal contrast enhancement. Mild generalized parenchymal volume loss with corresponding prominence of the ventricular system. Old left cerebellar and left occipital lobe as well as left villarreal radiata infarcts. The scalp and calvarium are normal. The superior sagittal sinus demonstrates normal venous flow. The corpus callosum is normal in shape and signal intensity. The posterior fossa is unremarkable. The brainstem and craniocervical junction are unremarkable. The ventricles are normal in size and position without evidence of hydrocephalus. The paranasal sinuses are normal. The visualized portions of the mastoids are unremarkable. The orbits appear normal. Normal flow voids are demonstrated in the carotid arteries and basilar artery. IMPRESSION: Stable postsurgical changes of pituitary adenoma resection without evidence of residual progressive disease. Unchanged hypoenhancing focus posterior to the cavernous ICA as detailed above. Dictated by: Lefty Mckeon M.D. The radiology attending physician has personally reviewed this study, and had reviewed and/or edited this written report and agrees with it. Electronically signed by: Phill Funes M.D. us Michael Bucio MD IMG MRI PROCEDURES Final Result * US Thyroid (09/24/2024 1:18 PM SPRAY OPERATOR) Anatomical Region Laterality Modality Head and Neck N/A Ultrasound 09/24/2024 1:33 PM SPRAY OPERATOR Impressions 09/24/2024 1:33 PM SPRAY OPERATOR There is a solid hypoechoic lesion posterior to the upper pole of the left lobe that measures 9 x 5 x 3 mm. It has readily detectable internal blood flow. This corresponds to the questionable abnormality seen on previous CT and ultrasound, and has an appearance and location that are typical of a parathyroid adenoma Electronically signed by: Hamlet Diamond M.D. Narrative 09/24/2024 1:33 PM SPRAY OPERATOR EXAMINATION: NECK SOFT TISSUE SONOGRAM HISTORY: 68-year-old female with hyperparathyroidism and previous parathyroid adenoma status post parathyroidectomy in 2004. Prior CT dated 07/05/2024, ultrasound date 07/08/2024 and sestamibi scan date 12/01/2023 reported as negative. Questionable left upper parathyroid adenoma discussed at multidisciplinary endocrine conference on 07/18/2024. Repeat ultrasound requested for further evaluation of this questionable adenoma. COMPARISON: Scanned multiple scans Procedure Note Hamlet Diamond MD - 09/24/2024 EXAMINATION: NECK SOFT TISSUE SONOGRAM HISTORY: 68-year-old female with hyperparathyroidism and previous parathyroid adenoma status post parathyroidectomy in 2004. Prior CT dated 07/05/2024, ultrasound date 07/08/2024 and sestamibi scan date 12/01/2023 reported as negative. Questionable left upper parathyroid adenoma discussed at multidisciplinary endocrine conference on 07/18/2024. Repeat ultrasound requested for further evaluation of this questionable adenoma. COMPARISON: Scanned multiple scans IMPRESSION: There is a solid hypoechoic lesion posterior to the upper pole of the left lobe that measures 9 x 5 x 3 mm. It has readily detectable internal blood flow. This corresponds to the questionable abnormality seen on previous CT and ultrasound, and has an appearance and location that are typical of a parathyroid adenoma Electronically signed by: Hamlet Diamond M.D. Marixa Solomon MD IMG US PROCEDURES Fi nal Result * (ABNORMAL) Lipid panel (09/09/2024 12:07 PM SPRAY OPERATOR) SCRIBED Cholesterol, Total 188 0 - 200 EXTERNAL LAB SCRIBED HDL 60 40 - 100 EXTERNAL LAB SCRIBED LDL 104(A) 0 - 100 EXTERNAL LAB SCRIBED Triglycerides 118 0 - 150 EXTERNAL LAB Blood [facility] Provider LAB BLOOD ORDERABLES Edit ed Result - Final EXTERNAL LAB * (ABNORMAL) Hemoglobin A1c (06/07/2024 1:31 PM SPRAY OPERATOR) Blood Result [facility] Provider MD LAB BLOOD ORDERABLES Katrina l Result EXTERNAL LAB * Screening Mammogram Bilateral W Steven (03/05/2024 4:34 PM CDT) Anatomical Region Laterality Modality Breast Bilateral Mammography 03/05/2024 4:37 PM CDT Impressions 03/05/2024 4:37 PM CDT There is no mammographic evidence of malignancy. A 1 year screening mammogram is recommended. BI-RADS: 1 - Negative. The patient has been or will be contacted. The patient will be entered into a reminder system with a target due date of 1 year for her next mammogram. Electronically signed by: Phill Dyson M.D. Narrative 03/05/2024 4:37 PM CDT EXAMINATION: SCREENING MAMMOGRAM BILATERAL W STEVEN ORDERING HEALTHCARE PROVIDER: SELF SCREENING MAMMOGRAM HISTORY: Routine screening mammography. COMPARISON: 01/21/2023, 02/23/2021, 01/10/2020, 07/06/2018 TECHNIQUE: CC and MLO views of the bilateral breasts were obtained with digital technique using breast tomosynthesis with C view. Computer aided detection was utilized. FINDINGS: DENSITY: There are scattered fibroglandular elements in the bilateral breasts. BREASTS: There are stable postoperative changes of bilateral reduction mammoplasty. There is no new suspicious finding in either breast on mammogram. us Self Screening Mammogram IMG MAMMO PROCEDURES Fi nal Result * Dexa Axial Skeleton Bone Density 1 or 2 Site (12/11/2023 8:39 AM CDT) Anatomical Region Laterality Modality Body N/A Other 12/11/2023 6:01 PM CDT Narrative 12/11/2023 6:03 PM CDT EXAM DESCRIPTION: DEXA AXIAL SKELETON BONE DENSITY 1 OR MORE SITES REASON FOR STUDY: 68 y/o year old F with given history of: screening for osteoporosis Screening. Postmenopausal In House Cra/Model: Omniture SL (S/N [id number]) CLINICAL INFORMATION: Current height: 66 inches Maximum height: 67 inches Weight: 163 pounds Risk factors: Postmenopausal, hyperparathyroidism COMPARISON: 07/06/2018 Dissimilar scan types or analysis methods precludes assessment for calculating a significant change. FINDINGS: AP LUMBAR SPINE L1-L4: Total BMD is 1.417 g/cm2 T-score is 3.4 LEFT HIP: Total BMD is 0.655 g/cm2 T-score is -2.4 Femoral neck BMD is 0.561 g/cm2 T-score is -2.6 Right HIP: Total BMD is 0.700 g/cm2 T-score is -2.0 Femoral neck BMD is 0.585 g/cm2 T-score is -2.4 FRAX: FRAX not reported due to T-scores of hip, femoral neck and/or spine being at or below -2.5 (Osteoporosis). IMPRESSION: Osteoporosis. REFERENCE: Bone mineral density: T-Score: Normal (T-score above or = -1.0) Low bone mass (T-score between -1.0 and -2.5) replaces the previously used term osteopenia Osteoporosis (T-score = or below -2.5) Z-Score: Within the expected range for age (Z-score above -2.0) Below the expected range for age (Z-score is -2.0 or below) Please see below follow up recommendations. Medical evaluation for secondary causes of low bone mineral density may be appropriate. FRAX is a World Health Organization validated fracture risk assessment tool that calculates a person's 10 year probability of a major osteoporosis related fracture and hip fracture. According to the National Osteoporosis Foundation guidelines, postmenopausal women and men age 50 or older with low bone mass and a 10 year probability of a major osteoporosis related fracture = or greater than 20% or a 10 year probability of a hip fracture = or greater than 3% should be considered for pharmacological treatment for the prevention of osteoporosis. For further information, including treatment recommendations, please refer to the 2019 ISCD Official Positions (http://www.iscd.org) and the NOF's Clinician's Guide to Prevention and Treatment of Osteoporosis (http://www.nof.org/professionals/clinical-guidelines) THIS IS AN ELECTRONICALLY VERIFIED FINAL REPORT 12/11/2023 6:03 PM - Electronically signed by Bryan Burton M.D. MF: KATRINA Report ID: [id number] Reading Location: [place] [address] Procedure Note Bryan Burton MD - 12/11/2023 EXAM DESCRIPTION: DEXA AXIAL SKELETON BONE DENSITY 1 OR MORE SITES REASON FOR STUDY: 68 y/o year old F with given history of: screeningfor osteoporosis Screening. Postmenopausal In House Cra/Model: [employer] (S/N [id number]) CLINICAL INFORMATION: Current height: 66 inches Maximum height: 67 inches Weight: 163 pounds Risk factors: Postmenopausal, hyperparathyroidism COMPARISON: 07/06/2018 Dissimilar scan types or analysis methods precludes assessment for calculating a significant change. FINDINGS: AP LUMBAR SPINE L1-L4: Total BMD is 1.417 g/cm2 T-score is 3.4 LEFT HIP: Total BMD is 0.655 g/cm2 T-score is -2.4 Femoral neck BMD is 0.561 g/cm2 T-score is -2.6 Right HIP: Total BMD is 0.700 g/cm2 T-score is -2.0 Femoral neck BMD is 0.585 g/cm2 T-score is -2.4 FRAX: FRAX not reported due to T-scores of hip, femoral neck and/or spine beingat or below -2.5 (Osteoporosis). IMPRESSION: Osteoporosis. REFERENCE: Bone mineral density: T-Score: Normal (T-score above or = -1.0) Low bone mass (T-score between -1.0 and -2.5) replaces thepreviously used term osteopenia Osteoporosis (T-score = or below -2.5) Z-Score: Within the expected range for age (Z-score above -2.0) Below the expected range for age (Z-score is -2.0 or below) Please see below follow up recommendations. Medical evaluation forsecondary causes of low bone mineral density may be appropriate. FRAX is a World Health Organization validated fracture risk assessmenttool that calculates a person's 10 year probability of a major osteoporosisrelated fracture and hip fracture. According to the National OsteoporosisFoundation guidelines, postmenopausal women and men age 50 or older with low bonemass and a 10 year probability of a major osteoporosis related fracture = or greater than 20% or a 10 year probability of a hip fracture = or greaterthan 3% should be considered for pharmacological treatment for the preventionof osteoporosis. For further information, including treatment recommendations, please referto the 2019 ISCD Official Positions (http://www.iscd.org) and the NOF's Clinician's Guide to Prevention and Treatment of Osteoporosis (http://www.nof.org/professionals/clinical-guidelines) THIS IS AN ELECTRONICALLY VERIFIED FINAL REPORT 12/11/2023 6:03 PM - Electronically signed by Bryan Burton M.D. MF: KATRINA Report ID: [id number] Reading Location: [place] [address] Jordyn Aragon MD [facility] [place]ED[place] Final Result * eGFR (11/15/2023 12:27 PM CDT) [facility] eGFR >90 >=60 mL/min/1. 73 m2 Comment: Interpretive Data Reference Interval Normal >/= 90 mL/min/1.73m2 Mildly decreased* 60 - 89 mL/min/1.73m2 Mildly to moderately decreased 45 - 59 mL/min/1.73m2 Moderately to severely decreased 30 - 44 mL/min/1.73m2 Severely decreased 15 - 29 mL/min/1.73m2 Kidney Failure < 15 mL/min/1.73m2 *Relative to young adult level Estimated glomerular filtration rate is determined by the 2020 CKD-EPI equation recommended by the National Kidney Foundation (A Unifying Approach to GFR Estimation: Recommendations of the NKF-ASK Task Force on Reassessing the Inclusion of Race in Diagnosing Kidney Disease, JASN 2020). The CKD-EPI equation should not be used for patients with unstable renal function and has not been validated in children and those over 70. Current interpretive data was last reviewed 2021. Blood 11/15/2023 12:2 7 PM CDT 11/15/2023 1:12 PM CDT us Marixa Solomon MD LAB BLOOD ORDERABLES Final Result Performing Organization Address City/State/ZIP Co pr Phone Number [facility] One [facility] [place] [address] * Colonoscopy (10/03/2023 10:16 AM SPRAY OPERATOR) Anatomical Region Laterality Modality Other Narrative Procedure Note Lee Murguia MD - 10/03/2023 10:16 AM CST ENDOSCOPY LAB Patient Name: Lianet Rausch Procedure Date: 10/03/2023 10:16 AM Admit Type: Outpatient Room: [facility] 8 Date of : 1955 Instrument Name: [id number] Gender: Female Note Status: Finalized Procedure: Colonoscopy Indications: Surveillance: Personal history of adenomatouspolyps on last colonoscopy 5 years ago Providers: Lee Murguia M.D. Referring MD: Ashok Le MD Medicines: Monitored Anesthesia Care Complications: No immediate complications. Estimated blood loss:None. Estimated Blood Loss: Estimated blood loss: none. Procedure: Pre-Anesthesia Assessment: - The risks and benefits of the procedure and the sedation options and risks were discussed with the patient. All questions were answered and informed consent was obtained. The benefits, risks and alternatives of theprocedure and sedation were discussed and informed consentwas obtained. All questions were answered. Please referto the signed informed consent document in the medical record. The scope was passed under direct vision.The Colonoscope was introduced through the anus and advanced to the the cecum, identified by the appendiceal orifice, ileocecal valve and palpation. The colonoscopy was performed without difficulty.The patient tolerated the procedure well. The qualityof the bowel preparation was good. The quality of the bowel preparation was evaluated using the BBPS(Continental Bowel Preparation Scale) with scores of: RightColon = 3 (entire mucosa seen well with no residualstaining, small fragments of stool or opaque liquid),Transverse Colon = 3 (entire mucosa seen well with no residual staining, small fragments of stool or opaqueliquid) and Left Colon = 3 (entire mucosa seen well with no residual staining, small fragments of stool oropaque liquid). The total BBPS score equals 9. The qualityof the bowel preparation was good. The bowelpreparation used was Miralax via extended prep with split dose instruction. Bowel prep was administered using asplit dose. AI Technology was utilized during theprocedure to aid in polyp detection. Findings: Internal hemorrhoids were found during retroflexion. The hemorrhoids were Grade II (internal hemorrhoids that prolapse but reduce spontaneously). A few small-mouthed diverticula were found in the sigmoid colon. The exam was otherwise without abnormality. Impression: - Internal hemorrhoids. - Diverticulosis in the sigmoid colon. - The examination was otherwise normal. - No specimens collected. Recommendation: - Discharge patient to home (via wheelchair). - High fiber diet indefinitely. - Continue present medications. - Repeat colonoscopy in 5 years for surveillance. Lee Murguia M.D. Lee Murguia M.D. 10/03/2023 11:07:16 AM Number of Addenda: 0 Note Initiated On: 10/03/2023 10:16 AM Scope Withdrawal Time: 0 hours 4 minutes 18 seconds Scope In: 10:51:18 AM Scope Out: 11:02:25 AM Lee Murguia MD ENDOSCOPY PROCEDURES Final Result * Albumin Creatinine Ratio, Urine (08/09/2021 7:50 AM SPRAY OPERATOR) Albumin Ur <12.0 mg/L [facility] AM H ([place]) Comment: Interpretive Data No reference range established. Current interpretive data was last revised 2018. Testing performed by: [facility], [address] [place] [address]., [address] Creatinine Ur 51.1 mg/dL YONI [facility] ([place]) Comment: Interpretive Data No reference range established. Current interpretive data was last revised 2018. Testing performed by: [facility], [address] [place] [address]., [address] Albumin Creatinine Ratio, Ur <23 1 - 29 mg/g Y[facility] ([place]) Comment:Testing performed by : [address] [address] Urine 08/09/2021 7:50 AM SPRAY OPERATOR 08/09/2021 2:16 PM SPRAY OPERATOR us Ashok Le MD LAB URINE ORDERABLES Final R esult [facility] ([place]) 1 [facility] Department [place] [address] from Last 3 Months or Most Recently Relevant to Health Maintenance Insurance T MEDICARE T MEDICARE [facility]LY [facility] MEDICARE Advance Directives For more information, please contact: [phone] * Full Code (Latest Code Status on File) Date Activated Date Inactivated Comments 03/13/2024 1:30 PM 03/13/2024 7:33 PM * Full Code Date Activated Date Inactivated Comments 10/03/2023 9:39 AM 10/03/2023 3:58 PM * Full Code Date Activated Date Inactivated Comments 09/16/2022 10:37 AM 09/16/2022 7:30 PM * Full Code Date Activated Date Inactivated Comments 06/19/2022 5:20 PM 06/20/2022 5:20 PM * Full Code Date Activated Date Inactivated Comments 12/13/2018 3:10 PM 12/13/2018 9:39 PM Care Teams [employer] Business Analyst Relationship Specialty Start Date End Date Ashok Le MD [address] [place] [address] PCP - General 10/28/16 Malcolm Curry MD [address] [place] [address] Consulting Physician Cardiology 12/13/18 [place] [address] [place] [address] [address] [address] Consulting Physician Cardiology 08/22/22
--- OUTSIDE RECORDS SUMMARY | 2024-10-25 14:10 | XMS_ITS | Encounter Summary ---
Author Organization [facility] Address [address] [place] [address] Phone Care Team Providers Care Sales Enablement Specialist Name Role Phone Ashok Le MD Primary Care Provider Malcolm Curry MD Unavailable [phone] Phill Aranda MD Unavailable [phone] Encounter Details Date Type Department Care Team (Late st Contact Info) Description 09/25/2024 Results Follow-Up [facility] Endocrinology Metabolism and Lipid [address] [facility] Floor 1, [address] [place] [address] Marixa Solomon MD [facility] [address] Social History Tobacco Use Types Packs/Day Years [...] on file Legal Sex Female 2:48 AM HEAD OF SCIENCE Gender Identity Female 08/28/2023 9:23 AM HEAD OF SCIENCE Sexual Orientation Not on file documented as of this encounter Miscellaneous Notes * Result Encounter Note - Marixa Solomon MD - 09/25/2024 11:26 AM CST Hi Your ultrasound is consistent with a parathyroid adenoma. I will discuss the results with Dr. Shahid Take care JS OF SCIENCE documented in this encounter Plan of Treatment Not on file documented as of this encounter Visit Diagnoses Not on filedocumented in this encounter Care Teams Sales Enablement Specialist Relationship Specialty Start Date End Date Ashok Le MD [address] [place] [address] PCP - General 10/28/16 Malcolm Curry MD [address] [place] [address] Consulting Physician Cardiology 12/13/18 Phill Aranda MD [address] [facility] [address] [place] [address] Consulting Physician Cardiology 08/22/22 documented as of this encounter
--- OUTSIDE RECORDS SUMMARY | 2024-10-25 14:10 | XMS_ITS | Referral Summary ---
Author Organization [facility] Address [address] [place] [address] Care Team Providers Care Milk Tester Name Role Phone Ashok Le MD Primary Care Provider [phone] Malcolm Curry MD Unavailable [phone] Phill Aranda MD Unavailable [phone] Encounters Date Type Department Care Team Description 10/25/[address] [facility] [address] [place] [address] 5 [place] [address] Marissa Zambrano, YEHUDA 10/25/2024 ACO Clinical Pharmacist [facility] Accountable Care Organization [address] [place] [address] Maureen Bravo RPh 10/25/[address] [facility] Floor 5 [place] [address] Marissa Zambrano, RN 10/17/2024 11:58 AM CDT - 10/17/2024 11:59 PM CDT Hospital Encounter [facility] [place] - MRI [address] [facility] Floor 8 [place] [address] Pituitary adenoma (HCC) Discharge Disposition: Discharge to home or self care 10/08/2024 Orders Only [facility] Cardiology [address] [place] [address] Amanda Coleman MD 09/27/2024 8:00 AM GRE TUTOR Office Visit [facility] Cardiology at [address] [place] [address] Phill Aranda MD Hyperlipidemia associated with type 2 diabetes mellitus (HCC) (Primary Dx); VT (ventricular tachycardia) (HCC); Palpitations; Dyslipidemia; H/O Amplatzer atrial septal defect closure 09/25/2024 Results Follow-Up [facility]ocr[facility] Metabolism and Lipid [address] [facility] Floor 1, [address] [place] [address] Marixa Solomon MD 09/24/2024 12:35 PM GRE TUTOR - 09/24/2024 11:59 PM GRE TUTOR Hospital Encounter [facility] [address] [place] [address] Hyperparathyroidism Discharge Disposition: Discharge to home or self care 08/23/[address] [facility] [address] [facility] 5 [place] [address] Marissa Zambrano, RN 08/23/[address] [facility] [address] [facility] 5 [place] [address] Marissa Zambrano, RN 08/13/[address] [facility] Sched[facility] [address] [place] [address] Debora Donohue 08/01/2024 Orders Only [facility] Accountable Care Organization [address] [place] [address] Amanda Coleman MD 07/29/[address] [facility] [address] [place] [address] Marissa Zambrano, RN from Last 3 Months Allergies No known active allergies Medications lutein [...] total) by mouth daily before breakfast Active gqdpw-1-fzh-epa-dp a-fish oil 1,050-1,200 mg capsuleIndications :hypertriglyceride peter [...] Active cream base no.9, bulk, cream 30 [place] Testosterone 0.15% Progesterone 2.0% Apply 1 ml [...] od Assessment & Plan (07/20/2023 2:35 PM GRE TUTOR): Will restart her progesterone and testosterone cream. Well woman exam 07/20/2023 Overview (01/22/2024): Lab: Pap:s/p hyst Labs with pcp Gibran:due Colonoscopy:2023- due 2028 BMD:2023 -2.6 Assessment & Plan (01/22/2024 10:03 AM CDT): Complete exam done Assessment & Plan (07/20/2023 2:39 PM GRE TUTOR): She declines exam today Pituitary lesion 03/30/2023 [...] PFO (patent foramen ovale) 07/19/2022 0 12/20/2023 Immunizations Immunization Administration Dates Next Due H1N1 All Forms 05/31/2009 Influenza, Unspecified 05/31/2022 Td, adsorbed 12/05/2003 Social History Tobacco Use Types Packs/Day Years [...] on file Legal Sex Female 2:48 AM GRE TUTOR Gender Identity Female 08/28/2023 9:23 AM GRE TUTOR Sexual Orientation Not on file Last Filed Vital Signs Vital Sign Reading Time Taken Comments Blood Pressure 132/82 09/27/2024 8:05 AM GRE TUTOR Pulse 82 09/27/2024 8:05 AM GRE TUTOR Temperature 36.1 C (97 F) 07/08/2024 1:34 PM GRE TUTOR Respiratory Rate 17 07/08/2024 1:34 PM GRE TUTOR Oxygen Saturation 98% 09/27/2024 8:05 AM GRE TUTOR Inhaled Oxygen Concentration - - Weight 68.9 kg (152 lb) 09/27/2024 8:05 AM GRE TUTOR Height 167.6 cm (5' 6 ) 09/27/2024 8:05 AM GRE TUTOR Body Mass Index 24.53 09/27/2024 8:05 AM GRE TUTOR Plan of Treatment Not on file Medical Devices Implanted Type Area Information Broker Device Identifier Shelf Expiration Date Model / Serial / Lot Meza Vascular Occluder Amplatzer Talisman Pfo 25-18mm 9-Pfo-2518 - [id number] - [id number] Implanted:Qt y: 1 on 09/16/2022 by Juan Weiner MD PhD at [facility] Left Atrial Appendage Occluder [employer] 03/30/2025 9-PFO-25 18 / [id number] / [id number] [employer] Graft Tissue Accelular Matrix Dermis Regn Medium 1.2 2.0mm Alloderm Select 2x4cm Rtu [id number] - [id number] Implanted:Qt y: 1 on 03/30/2023 by Michael Bucio MD at [facility] N/A: Brain [employer] [id number] 02/27/2025 [id number] / / [id number] Procedures Procedure Name Priority Date/Time Associated Diagnosis Comments MRI BRAIN W WO CONTRAST (PITUITARY) Schedule Routine, Read Routine (OP Routine) 10/17/2024 12:38 PM CDT Pituitary adenoma (HCC) US THYROID Schedule Routine, Read Routine (OP Routine) 09/24/2024 1:18 PM GRE TUTOR Hyperparathyroidism LIPID PANEL Routine 09/09/2024 12:07 PM GRE TUTOR HEMOGLOBIN A1C Routine 06/07/2024 1:31 PM GRE TUTOR SCREENING MAMMOGRAM BILATERAL W STEVEN Schedule Routine, Read Routine (OP Routine) 03/05/2024 4:34 PM CDT Screening mammogram, encounter for DEXA AXIAL SKELETON BONE DENSITY 1 OR MORE SITES Schedule Routine, Read Routine (OP Routine) 12/11/2023 8:39 AM CDT Encounter for screening for osteoporosis Age-related osteoporosis without current pathological fracture EGFR Routine 11/15/2023 12:27 PM CDT Hyperparathyroidism COLONOSCOPY 10/03/2023 10:16 AM GRE TUTOR ALBUMIN CREATININE RATIO, URINE Routine 08/09/2021 7:50 AM GRE TUTOR from Last 3 Months or Most Recently [...] Result * US Thyroid (09/24/2024 1:18 PM GRE TUTOR) Anatomical Region Laterality Modality Head and Neck N/A Ultrasound 09/24/2024 1:33 PM GRE TUTOR Impressions 09/24/2024 1:33 PM GRE TUTOR There is a solid hypoechoic lesion posterior [...] Hamlet Diamond M.D. Narrative 09/24/2024 1:33 PM GRE TUTOR EXAMINATION: NECK SOFT TISSUE SONOGRAM HISTORY: 68-year-old [...] * (ABNORMAL) Lipid panel (09/09/2024 12:07 PM GRE TUTOR) SCRIBED Cholesterol, Total 188 0 - 200 EXTERNAL LAB SCRIBED HDL 60 40 - 100 EXTERNAL LAB SCRIBED LDL 104(A) 0 - 100 EXTERNAL LAB SCRIBED Triglycerides 118 0 - 150 EXTERNAL LAB Blood Result [facility] Provider LAB BLOOD ORDERABLES Edit ed Result - Final EXTERNAL LAB * (ABNORMAL) Hemoglobin A1c (06/07/2024 1:31 PM GRE TUTOR) Blood Historical Provider LAB BLOOD ORDERABLES Katrina l Result EXTERNAL [...] history of: screening for osteoporosis Screening. Postmenopausal Information Broker/Model: [employer] SL (S/N [id number]) CLINICAL INFORMATION: Current height: 66 inches Maximum [...] Bryan Burton M.D. MF: KATRINA Report ID: [id number] Reading Location: [id number] [facility] Note Bryan Burton MD - 12/11/2023 EXAM DESCRIPTION: DEXA AXIAL SKELETON BONE DENSITY 1 OR MORE SITES REASON FOR STUDY: 68 y/o year old F with given history of: screeningfor osteoporosis Screening. Postmenopausal Information Broker/Model: [employer] (S/N [id number]) CLINICAL INFORMATION: Current height: 66 inches Maximum [...] 6:03 PM - Electronically signed by Bryan HERNDON: KATRINA Report ID: [id number] Reading Location: [place] [address] us Jordyn Aragon MD IMG DXA PROCEDURES Final Result * eGFR (11/15/2023 12:27 PM CDT) eGFR >90 >=60 mL/min/1. 73 m2 Comment: [...] BLOOD ORDERABLES Final Result Performing Organization Address City/State/[facility] Co de Phone Number [facility] One [facility] Department [place] [address] * Colonoscopy (10/03/2023 10:16 AM GRE TUTOR) Anatomical Region Laterality Modality Other Narrative Procedure Note Lee Murguia MD - 10/03/2023 10:16 AM CST ENDOSCOPY LAB Patient Name: Lianet Rausch Procedure Date: 10/03/2023 10:16 AM Admit Type: Outpatient Room: [facility] 8 Date of : 1955 [...] the bowel preparation was evaluated using the BBPS([place] Bowel Preparation Scale) with scores of: RightColon [...] In: 10:51:18 AM Scope Out: 11:02:25 AM us Lee Murguia MD ENDOSCOPY PROCEDURES Final Result * Albumin Creatinine Ratio, Urine (08/09/2021 7:50 AM GRE TUTOR) Albumin Ur <12.0 mg/L [facility] ([place]) Comment: Interpretive Data No reference range established. Current interpretive data was last revised 2018. Testing performed by: [facility], [address] [place] [address], [place]., [address] Creatinine Ur 51.1 mg/dL [facility] ([place]) Comment: Interpretive Data No reference range established. Current interpretive data was last revised 2018. Testing performed by: [facility], [address] [place] [address]., [address] Albumin Creatinine Ratio, Ur <23 1 - 29 mg/g [facility] ([place]) Comment:Testing performed by : [facility], [address] [place] [address]., [address] Urine 08/09/2021 7:50 AM GRE TUTOR 08/09/2021 2:16 PM GRE TUTOR us Ashok Le MD LAB URINE ORDERABLES Final R esult [facility] ([place]) 1 [facility] Department [place] [address] from Last 3 Months or Most Recently Relevant to Health Maintenance Insurance [facility] MEDICARE [facility] [place] [address] [employer] MEDICARE Advance Directives For more information, please contact: [phone] * Full Code (Latest Code Status on [...] 3:10 PM 12/13/2018 9:39 PM Care Teams Milk Tester Relationship Specialty Start Date End Date Ashok Le MD [address] [place] [address] PCP - General 10/28/16 Malcolm Curry MD [address] [place] [address] Consulting Physician Cardiology 12/13/18 Phill Aranda MD [address] [facility] [address] [place] [address] Consulting Physician Cardiology 08/22/22
[2024-10-25 14:11] VITALS: BP 139/68; PULSE 79; RESP 18; TEMP 36.6; O2SAT 97
--- NOTE | 2024-10-25 16:12 | ED_ITS ---
HPI - Extremity Injury (Upper) General Chief Complaint: Extremity Injury, Upper Stated Complaint: R hand injury Time Seen by Provider: 10/25/24 16:12 Source: patient Mode of arrival: ambulatory Limitations: no limitations History of Present Illness HPI narrative: Patient is a 68-year-old female who presents the ED with report of right hand pain. Patient reports she was walking in her garage and had her hand on a doorway when a wind sara blew the door shut on her hand. Complains of pain to her right dorsal hand, particularly over 3rd MCP region. Denies numbness. Denies any other injuries. Related Data Home Medications ?Medication ?Instructions ?Recorded ?Confirmed ?Last Taken ?Type metformin 500 mg tablet 500 mg PO DAILY 07/26/19 08/03/22 08/03/22 History (Glucophage) esomeprazole magnesium 20 mg 20 mg PO DAILY 07/27/19 08/03/22 08/03/22 History capsule,delayed release (Nexium) aspirin 81 mg tablet 81 mg PO DAILY 03/26/22 08/03/22 08/04/22 05:00 History levothyroxine 75 mcg tablet 75 mcg PO DAILY 03/26/22 08/03/22 08/04/22 05:00 History (Synthroid) meloxicam 7.5 mg tablet 7.5 mg PO DAILY 03/26/22 08/03/22 08/03/22 History amlodipine 5 mg tablet (Norvasc) 2.5 mg PO DAILY 06/17/22 08/03/22 08/03/22 History atorvastatin 40 mg tablet 40 mg PO DAILY 08/03/22 08/03/22 08/03/22 History coenzyme Q10 50 mg capsule (Co 50 mg PO DAILY 08/03/22 08/03/22 08/03/22 History Q-10) hyalur ac-chond sul-colg II-AA 40 1 cap PO DAILY 08/03/22 08/03/22 08/03/22 History mg-80 mg-400 mg capsule (Hyaluronic Acid(with chondroitin-collagenII)) lutein 40 mg capsule 40 mg PO DAILY 08/03/22 08/03/22 08/03/22 History metformin 500 mg tablet 1,000 mg PO BID 08/03/22 08/03/22 08/03/22 History metoprolol tartrate 25 mg tablet 12.5 mg PO DAILY 08/03/22 08/03/22 08/04/22 05:00 History omega-3 fatty acids 1,000 mg PO DAILY 08/03/22 08/03/22 08/03/22 History Allergies Allergy/AdvReac Type Severity Reaction Status Date / Time alcohol AdvReac Intermediate Flushing Verified 10/25/24 14:09 Review of Systems Review of Systems: All systems reviewed & are unremarkable except as noted in HPI. All systems reviewed & are unremarkable except as noted in HPI and below PMFSH Past Medical History Medical History Coronary artery vasospasm Pituitary macroadenoma Migraine Chronic GERD Left ureteral calculus Hyperparathyroidism Status post parathyroidectomy x1. Hypothyroidism Type 2 diabetes mellitus Recent hemoglobin A1c was 6.6. Hypercholesterolemia Surgical History Surgical History Hx of breast reduction, elective H/O cardiac catheterization History of breast biopsy With benign histology. History of appendectomy History of cholecystectomy History of total abdominal hysterectomy and bilateral salpingo-oophorectomy History of bilateral knee replacement History of parathyroidectomy X1. H/O hysterectomy for benign disease History of ureter stent Family History Family History Father Acute myocardial infarction Diabetes mellitus Social History Social History Social History: The patient lives in [place] with her . She designates her , Brian, as her surrogate decision maker and she wishes to be a full code. 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 She is a lifelong nonsmoker and denies drug abuse. Drinks alcohol occasionally code status full code Smoking status: Former smoker Smoking end date: 07/31/73 Alcohol intake: never Substance use: never Substance use type: does not use Lack of Transportation: No Lack of Food: Never True Current Housing: I Have Housing Concerned About Future Housing: No Difficulty Paying Gas/Electric Bills: No Difficulty Paying for Meds: No Currently Unemployed: No Education: Master's Degree or Higher Difficulty w/ Childcare or Family Care: No Living arrangements: with family Gender identity (if verbalized by the patient): Female Spiritual care concerns: No Agree to blood products: Yes Exam Narrative: GENERAL: Well appearing, well-nourished, non-toxic, in no acute distress. HEAD: Normocephalic, atraumatic. RESPIRATORY: Airway patent, respirations nonlabored. CARDIOVASCULAR: Regular rate and rhythm. Radial pulses strong. MUSCULOSKELETAL: Mild limited range of motion of right hip finger flexion due to pain. Swelling, bruising over R dorsal hand, 2nd -4th MCP regions. Focal TTP. No significant tenderness along wrist region, snuffbox. Sensation intact. Capillary refill intact. SKIN: Warm, dry, normal color. NEURO: A&O X3. Speech clear. PSYCHIATRIC: Appropriate mood and affect. Normal interaction. Course Vital Signs Vital signs: Vital Signs Temperature 97.9 F 10/25/24 14:11 Pulse Rate 79 10/25/24 14:11 Respiratory Rate 18 10/25/24 14:11 Blood Pressure 139/68 10/25/24 14:11 Pulse Oximetry 97 10/25/24 14:11 Oxygen Delivery Room Air 10/25/24 14:11 Temperature 97.9 F 10/25/24 14:11 Pulse Rate 79 10/25/24 14:11 Respiratory Rate 18 10/25/24 14:11 Blood Pressure 139/68 10/25/24 14:11 Pulse Oximetry 97 10/25/24 14:11 Oxygen Delivery Room Air 10/25/24 14:11 MDM - Extremity Injury (Upper) MDM Narrative Medical decision making narrative: Patient?s injury is consistent with musculoskeletal etiology. No signs of josué rologic or vascular compromise on physical examination. Compartments are soft without signs of compartment syndrome. XR of right hand showing polyarticular osteoarthritis, no fracture. Pain is consistent with hand contusion/sprain. Patient is felt to be stable for discharge home and further outpatient management and treatment. Given Tha bandage in the ED. Will refer to Hand surgery for further evaluation if needed. Discussed rice therapy. Discussed return precautions. Patient discharged in stable condition. Medical Records Attestation: I reviewed the patient's medical records. Imaging Data Attestation: I personally reviewed and interpreted this imaging study as follows: Radiologist's impression: ITS Impressions Hand X-Ray 10/25/24 14:35 IMPRESSION: 1. Polyarticular osteoarthritis. Discharge Plan Discharge Clinical Impression: Contusion of right hand Qualifiers: Encounter type: initial encounter Qualified Code(s): S60.221A - Contusion of right hand, initial encounter Patient Disposition: Home, Self-Care Condition: Stable Instructions: Antibiotic Form, Osteoarthritis (ED), Hand Sprain (ED) Additional Instructions: Continue Tylenol and Ibuprofen as needed for pain. Recommend frequent icing to hands, Tha bandage for compression and support. Elevate arm whenever able. Follow-up with your primary care doctor for further evaluation if needed. Return to the ED if you experience worsening or severe pain, recurrent injury, numbness, or any other symptoms of concern. Patient Language: Italian Prescriptions: No Action esomeprazole magnesium [Nexium] 20 mg Capsule,Delayed Release(Dr/Ec) 20 mg PO DAILY levothyroxine [Synthroid] 75 mcg Tablet 75 mcg PO DAILY meloxicam 7.5 mg Tablet 7.5 mg PO DAILY aspirin 81 mg Tablet 81 mg PO DAILY nitroglycerin 0.4 mg tablet, sublingual 0.4 mg sublingual Q5M PRN (Reason: chest pain) Qty: 10 0RF Rx Instructions: do not exceed 3 doses per episode atorvastatin 40 mg tablet 40 mg PO DAILY metformin 500 mg tablet 1,000 mg PO BID Patient Comments: with breakfast and dinner metoprolol tartrate 25 mg tablet 12.5 mg PO DAILY coenzyme Q10 [Co Q-10] 50 mg Capsule 50 mg PO DAILY omega-3 fatty acids Capsule 1,000 mg PO DAILY Hyaluronic Acid (chond-collgn) 40-80-400 mg Capsule 1 cap PO DAILY lutein 40 mg Capsule 40 mg PO DAILY Rx Instructions: administer with meals metformin [Glucophage] 500 mg Tablet 500 mg PO DAILY Rx Instructions: 1000mg bid + 500 at noon amlodipine [Norvasc] 5 mg tablet 2.5 mg PO DAILY Follow-up/Referrals: Liz Lugo MD [Physician] - (HAND SURGERY) PHYSICIAN NOT ON STAFF,NONSTAFF [Non-Staff] - Time of Disposition: 16:19
--- OUTSIDE RECORDS SUMMARY | 2024-10-25 16:27 | XMS_ITS | Clinical Summary ---
Author Organization [facility] Address [address] [place] [address] Care Team Providers Care Deployment Technician Name Role Phone Hamlet Adam MD Unavailable [phone] Ashok Le MD Primary Care Provider [phone] Source Comments [facility],non-owned Affiliates and Associated Physician Practices is amultiple site organization consisting of ambulatory clinics and hospital sitesin [place], [place] and [place]. This disclosure is being madepursuant to the Care Everywhere program and may not contain all information available regarding this patient. Last updated 18.[facility] Allergies No known active allergies Medications * Be aware that medications may not be up to date on this document. Alwaysverify current medications with the patient. Medication Sig Dispensed Refills Start Date End Date Status Cholecalciferol ([facility] VIT D 5000 HIGH-POTENCY PO) Take 1 Tab by mouth once daily. Active Ruth-3 Fatty Acids (FISH OIL) 1200 MG CAPS [...] Base (HRT Cream Base Women) CREA 30 WV Testosterone 0.15% Progesterone 2.0% Apply 1 ml [...] Description 09/30/2024 Telephone [facility] - RESIDENTIAL CONSTRUCTION INSTRUCTOR [address] [place] [address] Imelda Gomez MD Reschedule Appointment 09/26/2024 10:30 AM OCEAN LIFEGUARD SPECIALIST Procedure visit [facility] - RESIDENTIAL CONSTRUCTION INSTRUCTOR [address] [place] [phone] Adelaide Stevens APRN-HEAD STOCK OPERATOR Midline cystocele 09/26/2024 Travel 07/29/2024 Orders Only [facility] - RESIDENTIAL CONSTRUCTION INSTRUCTOR [address] [place] [phone] Imelda Gomez MD Midline cystocele 07/29/2024 Telephone [facility] - RESIDENTIAL CONSTRUCTION INSTRUCTOR [address] [place] [phone] Imelda Gomez MD Discuss Surgery from Last 3 Months [...] Comments Blood Pressure 128/67 09/26/2024 10:28 AM OCEAN LIFEGUARD SPECIALIST Pulse 82 02/20/2016 7:19 AM CDT Temperature 36.4 C (97.6 F) 09/26/2024 10:28 AM OCEAN LIFEGUARD SPECIALIST Respiratory Rate 16 02/20/2016 7:19 AM CDT Oxygen Saturation 97% 02/20/2016 7:19 AM CDT Inhaled Oxygen Concentration - - Weight 70.4 kg (155 lb 3.2 oz) 09/26/2024 10:28 AM OCEAN LIFEGUARD SPECIALIST Height 168.9 cm (5' 6.5 ) 09/26/2024 10:28 AM CS T Body Mass Index 24.67 09/26/2024 10:28 AM OCEAN LIFEGUARD SPECIALIST Plan of Treatment Upcoming Encounters Date Type Department Care Team (Latest Contact Info) Description 11/12/2024 7:15 AM CDT Hospital Encounter [facility] [address] [place] [id number] Imelda Gomez MD [address] [place] [phone] Surgery General 11/12/2024 7:15 AM CDT - 11/12/2024 10:48 AM CDT Surgery [facility] [address] [place] [id number] Imelda Gomez MD [address] [place] [phone] ANTERIOR COLPORRHAPHY 11/27/2024 8:30 AM CDT Office Visit [facility] - RESIDENTIAL CONSTRUCTION INSTRUCTOR [address] [place] [phone] Imelda Gomez MD [address] [place] [address] Scheduled Procedures Name Priority Associated [...] this topic Medical Devices Implanted Type Area Ex Assistant/Program Director Device Identifier Shelf Expiration Date Model / Serial / Lot Mor Bone [place] Hv Implanted:Qty: 1 on 01/23/2014 by Hamlet Adam MD at [facility] Right: [employer] 08/29/2015 [id number] / / [id number] Ty Tibial I Beam Fix Bar 71mm Implanted:Qty: 1 on 01/23/2014 by Hamlet Adam MD at [facility] Right: [employer] 11/28/2023 [id number] / / [id number] Kn Ins Vangurd Fem Cocr R-Intlok 62.5mm Implanted:Qty: 1 on 01/23/2014 by Hamlet Adam MD at [facility] Right: [employer] 08/30/2023 [id number] / / [id number] Butn Pat Arcom Wire Polyeth Sm 31 X 8mm Implanted:Qty: 1 on 01/23/2014 by Hamlet Adam MD at [facility] Right: [employer] 10/28/2018 [id number] / / [id number] Brdg Tib Johanny Stbl 14mm X 71mm Implanted:Qty: 1 on 01/23/2014 by Hamlet Adam MD at [facility] Right: [employer] 12/28/2018 [id number] / / [id number] Brdg Tib Johanny Stbl 12mm X 71mm Implanted:Qty: 1 on 02/17/2016 by Hamlet Adam MD at [facility] Left: [employer] 12/29/2020 [id number] / / [id number] Ty Tibial I Beam Fix Bar 71mm Implanted:Qty: 1 on 02/17/2016 by Hamlet Adam MD at [facility] Left: [employer] 12/30/2025 [id number] / / [id number] Butn Pat Arcom Wire Polyeth Xsm 28 X 8 Implanted:Qty: 1 on 02/17/2016 by Hamlet Adam MD at [facility] Left: [employer] 12/24/2020 [id number] / / [id number] Kn Ins Vangurd Fem Cocr L-Intlok 62.5mm Implanted:Qty: 1 on 02/17/2016 by Hamlet Adam MD at [facility] Left: [employer] 12/14/2025 [id number] / / [id number] Mor Bone [place] Hv Implanted:Qty: 1 on 02/17/2016 by Hamlet Adam MD at [facility] Left: Knee [employer] 06/29/2017 [id number] / / [id number] Procedures Procedure Name Priority Date/Time Associated Diagnosis Comments URINALYSIS - POINT OF CARE (AMB) [facility] Routine 09/26/2024 12:41 PM OCEAN LIFEGUARD SPECIALIST Midline cystocele CA CYSTOMETROGRAM W/FRAME WIRER&UP Routine 09/26/2024 12:26 PM OCEAN LIFEGUARD SPECIALIST Midline cystocele CA INSERT NON-INDWELLING BLADDER Routine 09/26/2024 12:26 PM OCEAN LIFEGUARD SPECIALIST Midline cystocele from Last 3 Months Results * URINALYSIS - POINT OF CARE (AMB) [facility] (09/26/2024 12:41 PM OCEAN LIFEGUARD SPECIALIST) Specific [place] UA 1.[address] [facility] [address] pH [...] URINE / Unknown 09/26/2024 1 2:41 PM OCEAN LIFEGUARD SPECIALIST Adelaide [facility] - POINT OF [place] [address], [facility] [phone] * CA INSERT NON-INDWELLING BLADDER, CA CYSTOMETROGRAM W/FRAME WIRER&UP (09/26/2024 12:26 PM OCEAN LIFEGUARD SPECIALIST) Narrative Adelaide Stevens APRN-CNP - 09/26/2024 12:26 PM OCEAN LIFEGUARD SPECIALIST Adelaide Stevens APRN-CNP 09/26/2024 12:36 PM Multichannel [...] 150 cc: No UI demonstrated VLPP at NURSING HOME : No UI demonstrated Urethral pressure profilometry (UPP): Maximal urethral closure pressure (MUCP): 48 Leakage amount: none Voiding pressure study (FRAME WIRER): She voided via urethral relaxation and valsalva. [...] 10:22 AM 01/26/2014 1:04 PM Care Teams Deployment Technician Relationship Specialty Start Date End Date Ashok Le MD [address] [place] [phone] PCP - General 05/01/12 Hamlet Adam MD Orthopedic Surgery 05/01/12
--- OUTSIDE RECORDS SUMMARY | 2024-10-25 16:28 | XMS_ITS | Clinical Summary ---
Author Organization [facility] Address 1 [place] [address] Care Team Providers Care General Cargo Clerk Name Role Phone Ashok Le MD Primary Care Provider [phone] Malcolm Curry MD Unavailable [phone] Phill Aranda MD Unavailable Allergies No [...] total) by mouth daily before breakfast Active ckkir-3-qni-epa-dp a-fish oil 1,050-1,200 mg capsuleIndications :hypertriglyceride peter [...] Active cream base no.9, bulk, cream 30 MO Testosterone 0.15% Progesterone 2.0% Apply 1 ml [...] od Assessment & Plan (07/20/2023 2:35 PM ROCK CONTRACTOR): Will restart her progesterone and testosterone cream. Well woman exam 07/20/2023 Overview (01/22/2024): Lab: Pap:s/p hyst Labs with pcp Gibran:due Colonoscopy:2023- due 2028 BMD:4 -2.6 Assessment & Plan (01/22/2024 10:03 AM CDT): Complete exam done Assessment & Plan (07/20/2023 2:39 PM ROCK CONTRACTOR): She declines exam today Pituitary lesion 03/30/2023 [...] Type Department Care Team Description 10/25/2024 Telephone [facility] Floor 5 [place] [address] Marissa Zambrano RN 10/25/2024 ACO Clinical Pharmacist [facility] [address] [place] [address] Maureen Bravo RPh 10/25/2024 Telephone [facility] [address] [facility] Floor 5 [place] [address] Marissa Zambrano RN 10/17/2024 11:58 AM CDT - 10/17/2024 11:59 PM CDT Hospital Encounter [facility] - MRI [address] [facility] Floor 8 [place] [address] Pituitary adenoma (HCC) Discharge Disposition: Discharge to home or self care 10/08/2024 Orders Only [facility] Cardiology [address] [facility] [address] [place] [address] ProviderAmanda MD 09/27/2024 8:00 AM ROCK CONTRACTOR Office Visit [facility] Cardiology at [address] [place] [address] Phill Aranda MD Hyperlipidemia associated with type 2 diabetes mellitus (HCC) (Primary Dx); VT (ventricular tachycardia) (HCC); Palpitations; Dyslipidemia; H/O Amplatzer atrial septal defect closure 09/25/2024 Results [facility]-Up [facility] End[facility]inology Metabolism and Lipid [address] [facility] Floor 1, [address] [place] [address] Marixa Solomon MD 09/24/2024 12:35 PM ROCK CONTRACTOR - 09/24/2024 11:59 PM ROCK CONTRACTOR Hospital Encounter [facility] [address] [place] [address] Hyperparathyroidism Discharge Disposition: Discharge to home or self care 08/23/2024 Telephone [facility] [address] [facility] Floor 5 [place] [address] Marissa Zambrano RN 08/23/2024 Orders Only [facility] [address] [facility] Floor 5 [place] [address] Marissa Zambrano RN 08/13/2024 Telephone [facility] [address] [place] [address] Debora Donohue 08/01/2024 Orders Only [facility] [address] [place] [address] Provider, MD Amanda 07/29/2024 Telephone [facility]0 [facility] Floor 5 [place] [address] Marissa Zambrano RN from Last [...] Comments Diabetes Brother Juan TYPE 2 55y, [place] Father Ye Alcohol abuse Father Ye Cancer [...] on file Legal Sex Female 2:48 AM ROCK CONTRACTOR Gender Identity Female 08/28/2023 9:23 AM ROCK CONTRACTOR Sexual Orientation Not on file Obstetrics History Para Term AB IAB SAB Ectopic Multiple Livin g Live Births 4 4 4 Date Outcome GA Total Labor Labor/2nd/3rd Weight Sex Type Anes PTL Emily A1 A5 Name Clin Term Term Term Term Comments LMP: 1995 Last Filed Vital Signs Vital Sign Reading Time Taken Comments Blood Pressure 132/82 09/27/2024 8:05 AM ROCK CONTRACTOR Pulse 82 09/27/2024 8:05 AM ROCK CONTRACTOR Temperature 36.1 C (97 F) 07/08/2024 1:34 PM ROCK CONTRACTOR Respiratory Rate 17 07/08/2024 1:34 PM ROCK CONTRACTOR Oxygen Saturation 98% 09/27/2024 8:05 AM ROCK CONTRACTOR Inhaled Oxygen Concentration - - Weight 68.9 kg (152 lb) 09/27/2024 8:05 AM ROCK CONTRACTOR Height 167.6 cm (5' 6 ) 09/27/2024 8:05 AM ROCK CONTRACTOR Body Mass Index 24.53 09/27/2024 8:05 AM ROCK CONTRACTOR Plan of Treatment Health Maintenance Due Date [...] 10/03/2023, 03/27/2018 Medical Devices Implanted Type Area Spring Encaser Device Identifier Shelf Expiration Date Model / Serial / Lot Meza Vascular Occluder Amplatzer Talisman Pfo 25-18mm 9-[id number]-[id number] - [id number] - [id number] Implanted:Qt y: 1 on 09/16/2022 by uJan Weiner MD PhD at [facility] Left Atrial Appendage Occluder Meza V[employer] 03/30/2025 9-PFO-25 [id number] / [id number] [employer] Graft Tissue Accelular Matrix Dermis Regn Medium 1.2 2.0mm Alloderm Select 2x4cm Rtu [id number] - [id number] Implanted:Qt y: 1 on 03/30/2023 by Michael Bucio MD at [facility] N/A: Brain [employer] [id number] 02/27/2025 [id number] / [id number] Procedures Procedure Name Priority Date/Time Associated Diagnosis Comments MRI BRAIN W WO CONTRAST (PITUITARY) Schedule Routine, Read Routine (OP Routine) 10/17/2024 12:38 PM CDT Pituitary adenoma (HCC) US THYROID Schedule Routine, Read Routine (OP Routine) 09/24/2024 1:18 PM ROCK CONTRACTOR Hyperparathyroidism LIPID PANEL Routine 09/09/2024 12:07 PM ROCK CONTRACTOR HEMOGLOBIN A1C Routine 06/07/2024 1:31 PM ROCK CONTRACTOR SCREENING MAMMOGRAM BILATERAL W STEVEN Schedule Routine, Read Routine (OP Routine) 03/05/2024 4:34 PM CDT Screening mammogram, encounter for DEXA AXIAL SKELETON BONE DENSITY 1 OR MORE SITES Schedule Routine, Read Routine (OP Routine) 12/11/2023 8:39 AM CDT Encounter for screening for osteoporosis Age-related osteoporosis without current pathological fracture EGFR Routine 11/15/2023 12:27 PM CDT Hyperparathyroidism COLONOSCOPY 10/03/2023 10:16 AM ROCK CONTRACTOR ALBUMIN CREATININE RATIO, URINE Routine 08/09/2021 7:50 AM ROCK CONTRACTOR from Last 3 Months or Most Recently [...] ICA as detailed above. Dictated by: Lefty Mckoen M.D. The radiology attending physician has personally [...] Result * US Thyroid (09/24/2024 1:18 PM ROCK CONTRACTOR) Anatomical Region Laterality Modality Head and Neck N/A Ultrasound 09/24/2024 1:33 PM ROCK CONTRACTOR Impressions 09/24/2024 1:33 PM ROCK CONTRACTOR There is a solid hypoechoic lesion posterior [...] Hamlet Diamond M.D. Narrative 09/24/2024 1:33 PM ROCK CONTRACTOR EXAMINATION: NECK SOFT TISSUE SONOGRAM HISTORY: 68-year-old [...] * (ABNORMAL) Lipid panel (09/09/2024 12:07 PM ROCK CONTRACTOR) SCRIBED Cholesterol, Total 188 0 - 200 EXTERNAL LAB SCRIBED HDL 60 40 - 100 EXTERNAL LAB SCRIBED LDL 104(A) 0 - 100 EXTERNAL LAB SCRIBED Triglycerides 118 0 - 150 EXTERNAL LAB Blood [facility] Provider LAB BLOOD ORDERABLES Edit ed Result - Final EXTERNAL LAB * (ABNORMAL) Hemoglobin A1c (06/07/2024 1:31 PM ROCK CONTRACTOR) Blood Result [facility] Provider MD LAB BLOOD ORDERABLES Katrina l [...] history of: screening for osteoporosis Screening. Postmenopausal Spring Encaser/Model: [address] SL (S/N [id number]) CLINICAL INFORMATION: Current height: 66 inches Maximum [...] Bryan Burton M.D. MF: KATRINA Report ID: [id number] Reading Location: [place] [address] Procedure Note Bryan Burton MD - 12/11/2023 EXAM DESCRIPTION: DEXA AXIAL SKELETON BONE DENSITY 1 OR MORE SITES REASON FOR STUDY: 68 y/o year old F with given history of: screeningfor osteoporosis Screening. Postmenopausal Spring Encaser/Model: [employer] (S/N [id number]) CLINICAL INFORMATION: Current height: 66 inches Maximum [...] Bryan Burton M.D. MF: KATRINA Report ID: [id number] Reading Location: [place] [address] Jordyn Aragon MD [facility] DXA PROCEDURES Final Result * eGFR (11/15/2023 12:27 PM CDT) [facility] eGFR >90 >=60 mL/min/1. 73 m2 Comment: [...] Final Result Performing Organization Address City/State/ZIP Co nd Phone Number [facility] Department [place] [address] * Colonoscopy (10/03/2023 10:16 AM ROCK CONTRACTOR) Anatomical Region Laterality Modality Other Narrative Procedure Note Lee Murgiua MD - 10/03/2023 10:16 AM CST ENDOSCOPY LAB Patient Name: Lianet Rausch Procedure Date: 10/03/2023 10:16 AM Admit Type: Outpatient Room: [facility] 8 Date of : 1955 Instrument Name: [...] the bowel preparation was evaluated using the BBPS([place] Bowel Preparation Scale) with scores of: RightColon [...] Albumin Creatinine Ratio, Urine (08/09/2021 7:50 AM ROCK CONTRACTOR) Albumin Ur <12.0 mg/L [facility] ([place]) Comment: Interpretive Data No reference range established. Current interpretive data was last revised 2018. Testing performed by: [facility], [address] [place] [address]., [address] Creatinine Ur 51.1 mg/dL [facility]I [facility] ([place]) Comment: Interpretive Data No reference range established. Current interpretive data was last revised 2018. Testing performed by: [facility], [address] [place] [address]., [address] Albumin Creatinine Ratio, Ur <23 1 - 29 mg/g Y[facility]I [facility] ([place]) Comment:Testing performed by : [address] [address] Urine 08/09/2021 7:50 AM ROCK CONTRACTOR 08/09/2021 2:16 PM ROCK CONTRACTOR us Ashok Le MD LAB URINE ORDERABLES Final R esult [facility] ([place]) 1 [facility] Department [place] [address] from Last 3 Months or Most Recently Relevant to Health Maintenance Insurance T MEDICARE T MEDICARE [facility] MEDICARE Advance Directives For more information, please contact: [phone] * Full Code (Latest Code Status on [...] 3:10 PM 12/13/2018 9:39 PM Care Teams General Cargo Clerk Relationship Specialty Start Date End Date Ashok Le MD [address] [place] [address] PCP - General 10/28/16 Malcolm Curry MD [address] [place] [address] Consulting Physician Cardiology 12/13/18 [place] [address] [place] [address] [address] [address] Consulting Physician Cardiology 08/22/22
--- OUTSIDE RECORDS SUMMARY | 2024-10-25 16:28 | XMS_ITS | Encounter Summary ---
Author Organization [facility] Address [address] [place] [address] Phone Care Team Providers Care Hand Ii Tube Bender Name Role Phone Ashok Le MD Primary Care Provider [phone] Malcolm Curry MD Unavailable [phone] Phill Aranda MD Unavailable Encounter Details Date Type Department Care Team (Late st Contact Info) Description 09/25/2024 Results Follow-Up [facility] Endocrinology Metabolism and Lipid [address] [facility] Floor 1, [address] [place] [address] Marixa Solomon MD Critical access hospital[facility] [address] [address] Social History Tobacco Use Types [...] on file Legal Sex Female 2:48 AM COMPUTED TOMOGRAPHY TECHNICIAN Gender Identity Female 08/28/2023 9:23 AM COMPUTED TOMOGRAPHY TECHNICIAN Sexual Orientation Not on file documented as of this encounter Miscellaneous Notes * Result Encounter Note - Marixa Solomon MD - 09/25/2024 11:26 AM CST Hi Your ultrasound is consistent with a parathyroid adenoma. I will discuss the results with Dr. Shahid Take care JS UTED TOMOGRAPHY TECHNICIAN documented in this encounter Plan of Treatment Not on file documented as of this encounter Visit Diagnoses Not on filedocumented in this encounter Care Teams Hand Ii Tube Bender Relationship Specialty Start Date End Date Ashok Le MD [address] [place] [address] PCP - General 10/28/16 Malcolm Curry MD [address] [place] [address] Consulting Physician Cardiology 12/13/18 Phill Aranda MD [address] [facility] [address] [place] [address] Consulting Physician Cardiology 08/22/22 documented as of this encounter
--- OUTSIDE RECORDS SUMMARY | 2024-10-25 16:28 | XMS_ITS | Encounter Summary ---
Author Organization [facility] Address [address] [place] [address] Care Team Providers Care Line Erector Name Role Phone Hamlet Adam MD Unavailable [phone] Ashok Le MD Primary Care Provider [phone] Reason for Visit * Reason Onset Date Comments Reschedule Appointment 09/30/2024 Encounter Details Date Type Department Care Team (Late st Contact Info) Description 09/30/2024 Telephone [facility] - TH[facility] [address] [place] [address] Imelda Gomez MD [address] [place] [address] Reschedule Appointment Social History Tobacco [...] Imelda Loya RN - 09/30/2024 9:04 AM SUPERVISOR SHIPPING ROOM Call forwarded to flight crew scheduler Rupinder and cc'd to Dr Gomez RVISOR SHIPPING ROOM * Telephone Encounter - Blaise Tenorio - 09/30/2024 8:56 AM CST Pt calling needing to reschedule surgery for 10/01/2024 Lianet is ill and will not be abl to make the surgery please give her a call to get this appointment rescheduled. RVISOR SHIPPING ROOM documented in this encounter Plan of Treatment Upcoming Encounters Date Type Department Care Team (Latest Contact Info) Description 11/12/2024 7:15 AM CDT Hospital Encounter [facility] PERIOPERATIVE [address] [place] [address] Imelda Gomez MD [address] [place] [address] Surgery General 11/12/2024 7:15 AM CDT - 11/12/2024 10:48 AM CDT Surgery [facility] PERIOPER[facility]IVE [address] [place] [address] Imelda Gomez MD [address] [place] [address] ANTERIOR COLPORRHAPHY 11/27/2024 8:30 AM CDT Office Visit [facility] - [facility] [address] [place] [address] Imelda Gomez MD [address] [place] [address] Scheduled Procedures Name Priority Associated Diagnoses Date/Ti me COLPORRHAPHY ANTERIOR REPAIR Diagnosis unknown 11/12/2024 7:15 AM CDT SLING OPERATION FEMALE Diagnosis unknown 11/12/2024 7:15 AM CDT documented as of this encounter Visit Diagnoses Not on filedocumented in this encounter Care Teams Line Erector Relationship Specialty Start Date End Date Ashok Le MD [address] [place] [address] PCP - General 05/01/12 Hamlet Adam MD Orthopedic Surgery 05/01/12 documented as of this encounter
--- OUTSIDE RECORDS SUMMARY | 2024-10-25 16:28 | XMS_ITS | Encounter Summary ---
Author Organization [facility] Address [address] [facility] [place] [address] Care Team Providers Care Collar Feller Name Role Phone Hamlet Adam MD Unavailable [phone] Ashok Le MD Primary Care Provider [phone] Reason for Visit * Reason Onset Date Comments Discuss Surgery 07/29/2024 Encounter Details Date Type Department Care Team (Late st Contact Info) Description 07/29/2024 Telephone [facility] - AUTO BATTERY BUILDER [address] [place] [address] Imelda Goemz MD [address] [place] [address] Discuss Surgery Social History Tobacco [...] order, then goes to Rupinder, her surg cruise guide. She will call you after she is able to schedule and checks insurance. Please give her about a week, alan with the holiday this week. She agrees to plan. Grateful for call back. Note: She is hoping for end of July or beginning of Aug. NEL MARKETING SPECIALIST * Telephone Encounter - Ld L[place]o - 07/29/2024 2:33 PM CST Pt calling to let dr know she is interested in having surgical procedure NEL MARKETING SPECIALIST documented in this encounter Plan of Treatment Upcoming Encounters Date Type Department Care Team (Latest Contact Info) Description 11/12/2024 7:15 AM CDT Hospital Encounter [facility] PERIOPERATIVE [address] [place] [address] Imelda Gomez MD [address] [place] [address] Surgery General 11/12/2024 7:15 AM CDT - 11/12/2024 10:48 AM CDT Surgery [facility] PERIOPER[facility]IVE [address] [place] [address] Imelda Gomez MD [address] [place] [address] ANTERIOR COLPORRHAPHY 11/27/2024 8:30 AM CDT Office Visit [facility] - AUTO BATTERY BUILDER [address] [place] [address] Imelda Gomez MD [address] [place] [address] Scheduled Procedures Name Priority Associated Diagnoses Date/Ti me COLPORRHAPHY ANTERIOR REPAIR Diagnosis unknown 11/12/2024 7:15 AM CDT SLING OPERATION FEMALE Diagnosis unknown 11/12/2024 7:15 AM CDT documented as of this encounter Visit Diagnoses Not on filedocumented in this encounter Care Teams Collar Feller Relationship Specialty Start Date End Date Ashok Le MD [address] [place] [address] [address] [place] [address] PCP - General 05/01/12 Hamlet Adam MD Orthopedic Surgery 05/01/12 documented as of this encounter
--- OUTSIDE RECORDS SUMMARY | 2024-10-25 16:28 | XMS_ITS | Encounter Summary ---
Author Organization [facility] Address [address] [place] [address] Phone Care Team Providers Care Application Development Intern Name Role Phone Ashok Le MD Primary Care Provider [phone] Malcolm Curry MD Unavailable [phone] Phill Aranda MD Unavailable Encounter Details Date Type Department Care Team (Late st Contact Info) Description 10/25/2024 Telephone [facility] Surgery [facility] Floor 5 [place] [address] Marissa Zambrano, RN Social History [...] on file Legal Sex Female 2:48 AM POWERHOUSE LABORER Gender Identity Female 08/28/2023 9:23 AM POWERHOUSE LABORER Sexual Orientation Not on file documented as of this encounter Miscellaneous Notes * Telephone Encounter - Marissa Zambrano RN - 10/25/2024 9:06 AM CDT Called and spoke with patient to request information regarding records/op note from previous surgery in 2003. Pt reports records should be located with [facility] Dr. Silva was previous surgeon. Marissa Zambrano RN Clinical Nurse Coordinator to Dr. Hamlet Shahid and Dr. Margo Barajas [facility] Department of Surgery - Division of Surgical Oncology documented in this encounter Plan of Treatment Not on file documented as of this encounter Visit Diagnoses Not on filedocumented in this encounter Care Teams Application Development Intern Relationship Specialty Start Date End Date Ashok Le MD [address] [place] [address] PCP - General 10/28/16 Malcolm Curry MD [address] [place] [address] Consulting Physician Cardiology 12/13/18 Phill Aranda MD [address] [facility] [address] [facility] [place] [address] Consulting Physician Cardiology 08/22/22 documented as of this encounter
--- OUTSIDE RECORDS SUMMARY | 2024-10-25 16:28 | XMS_ITS | Encounter Summary ---
Author Organization [facility] Address [address] [place] [address] Phone Care Team Providers Care Air Chief Marshal Name Role Phone Ashok Le MD Primary Care Provider [phone] Malcolm Curry MD Unavailable [phone] Phill Aranda MD Unavailable Encounter Details Date Type Department Care Team (Late st Contact Info) Description 10/25/2024 Telephone [facility] Surgery [facility] Floor 5 [place] [address] Marissa Zambrano, RN Social History [...] on file Legal Sex Female 2:48 AM RN BEHAVIORAL HEALTH Gender Identity Female 08/28/2023 9:23 AM RN BEHAVIORAL HEALTH Sexual Orientation Not on file documented as of this encounter Miscellaneous Notes * Telephone Encounter - Marissa Zambrano RN - 10/25/2024 12:15 PM CDT Spoke with Kaylee PAUL, will be faxing requested op note/pathology from 12/2003. Marissa Zambrano RN Clinical Nurse Coordinator to Dr. Hamlet Shahid and Dr. Margo Barajas [facility] Department of Surgery - Division of Surgical Oncology documented in this encounter Plan of Treatment Not on file documented as of this encounter Visit Diagnoses Not on filedocumented in this encounter Care Teams Air Chief Marshal Relationship Specialty Start Date End Date Ashok Le MD [address] [place] [address] PCP - General 10/28/16 Malcolm Curry MD [address] [facility] [place] [place] [address] Consulting Physician Cardiology 12/13/18 [place] [address] [place] [address] [address] [place] [address] Consulting Physician Cardiology 08/22/22 documented as of this encounter
--- OUTSIDE RECORDS SUMMARY | 2024-10-25 16:28 | XMS_ITS | Encounter Summary ---
Author Organization [facility] Address [address] [place] [address] Care Team Providers Care Regional Rehabilitation Director Name Role Phone Ashok Le MD Primary Care Provider [phone] Malcolm Curry MD Unavailable [phone] Phill Aranda MD Unavailable [phone] Reason for Visit * Reason Comments Chart [...] per ACC 2021 ECDP guidance). 06/19/2024 this designer writer discussed plan of care with detective bureau chief who opted to continue Repatha without statin Encounter Details Date Type Department Care Team (Late st Contact Info) Description 10/25/2024 ACO Clinical Pharmacist [facility] Accountable Care Organization [address] [place] [address] Maureen Bravo RPh [address] [place] [address] DR HENAO [address] [place] [address] Social History Tobacco Use Types Packs/Day Years [...] on file Legal Sex Female 2:48 AM INFORMIX DEVELOPER Gender Identity Female 08/28/2023 9:23 AM INFORMIX DEVELOPER Sexual Orientation Not on file documented as of this encounter Miscellaneous Notes * Telephone Encounter - Maureen Bravo, [facility] - 10/25/2024 9:27 AM CDT ACO [...] per ACC 2021 ECDP guidance). 06/19/2024 this designer writer discussed plan of care with detective bureau chief who opted to continue Repatha without statin at that time Recommended Action: Continue care plan per cardiology: Continue current therapy - Repatha 140 mg under the skin every 2weeks Maureen Bravo, ChaD, BCACP Clinical Pharmacist Specialist [facility] & Accountable Care Organization (ACO) FYI - [...] on filedocumented in this encounter Care Teams Regional Rehabilitation Director Relationship Specialty Start Date End Date Ashok Le MD [address] [place] [address] PCP - General 10/28/16 Malcolm Curry MD [address] [place] [address] Consulting Physician Cardiology 12/13/18 [place] [address] [place] [address] [address] [facility] [place] [address] Consulting Physician Cardiology 08/22/22 documented as of this encounter
--- OUTSIDE RECORDS SUMMARY | 2024-10-25 16:28 | XMS_ITS | Encounter Summary ---
Author Organization [facility] Healthcare Address [address] [place] [address] Care Team Providers Care Engine Lathe Set Up Operator Name Role Phone Ashok Le MD Primary Care Provider [phone] Malcolm Curyr MD Unavailable [phone] Hortencia Fernandez RN Unavailable [phone] Phill Aranda MD Unavailable Reason for Visit * Reason Onset Date Comments Scheduling Appointments 01/26/2021 Confirmi ng mammogram appt- no answer Encounter Details Date Type Department Care Team (Late st Contact Info) Description 01/26/2021 Telephone [facility] [address] [place] [address] Renetta Garcia RT Scheduling Appointments (Confirming mammogram appt- no answer ) Social History Tobacco Use Types Packs/Day Years Used Date Smoking Tobacco: Former Smokeless Tobacco: Never Alcohol Use Standard Drinks/Week Comments Yes 0 (1 standard drink = 0.6 oz pur e alcohol) Comments No Sex and Gender Information Value Date Recorded Sex Assigned at Not on file Legal Sex Female 2:48 AM PLANNING DIVISION SUPERINTENDENT Gender Identity Female 08/28/2023 9:23 AM PLANNING DIVISION SUPERINTENDENT Sexual Orientation Not on file documented as of this encounter Plan of Treatment Not on file documented as of this encounter Visit Diagnoses Not on filedocumented in this encounter Additional Health Concerns Infection Onset Date Last Indicated Resolved Time COVID: Suspected 07/05/2021 07/05/2021 07/05/2021 10:38 AM PLANNING DIVISION SUPERINTENDENT COVID: Suspected 07/05/2021 07/05/2021 07/05/2021 7:56 PM PLANNING DIVISION SUPERINTENDENT COVID: Suspected 08/23/2021 08/23/2021 08/23/2021 10:24 PM PLANNING DIVISION SUPERINTENDENT COVID: Suspected 01/06/2022 01/06/2022 01/06/2022 9:50 PM CDT COVID: Suspected 01/13/2022 01/13/2022 01/14/2022 3:05 AM CDT COVID: Suspected 01/13/2022 01/13/2022 01/14/2022 4:19 PM CDT COVID: Suspected 07/06/2022 07/06/2022 07/06/2022 6:11 PM PLANNING DIVISION SUPERINTENDENT COVID: Suspected 07/06/2022 07/06/2022 07/06/2022 11:48 PM PLANNING DIVISION SUPERINTENDENT documented as of this encounter Care Teams Engine Lathe Set Up Operator Relationship Specialty Start Date End Date Ashok Le MD [address] [place] [address] PCP - General 10/28/16 Malcolm Curry MD [address] [place] [address] Consulting Physician Cardiology 12/13/18 Hortencia Fernandez, RN [address] [place] [address] Nurse Navigator 06/28/22 06/01/23 [place] [address] [place] [address] [address] [place] [address] Consulting Physician Cardiology 08/22/22 documented as of this encounter
--- OUTSIDE RECORDS SUMMARY | 2024-10-25 16:28 | XMS_ITS | Referral Summary ---
Author Organization [facility] Address [address] [place] [address] Care Team Providers Care Information Writer Name Role Phone Ashok Le MD Primary Care Provider [phone] Malcolm Curry MD Unavailable [phone] Phill Aranda MD Unavailable [phone] Encounters Date Type Department Care Team Description 10/25/2024 Telephone [facility] [address] [place] [address] [address] [place] [address] Marissa Zambrano, YEHUDA 10/25/2024 ACO Clinical Pharmacist [facility] Accountable Care Organization [address] [place] [address] Maureen Bravo RPh 10/25/2024 Telephone [facility] Floor [address] [place] [address] Marissa Zambrano, RN 10/17/2024 11:58 AM CDT - 10/17/2024 11:59 PM CDT Hospital Encounter [facility] [place] - MRI [address] [facility] [address] [place] [address] Pituitary adenoma (HCC) Discharge Disposition: Discharge to home or self care 10/08/2024 Orders Only [facility] Cardiology [address] [place] [address] Amanda Coleman MD 09/27/2024 8:00 AM LAUNDRY TECHNICIAN Office Visit [facility] Cardiology at [address] [place] [address] Phill Aranda MD Hyperlipidemia associated with type 2 diabetes mellitus (HCC) (Primary Dx); VT (ventricular tachycardia) (HCC); Palpitations; Dyslipidemia; H/O Amplatzer atrial septal defect closure 09/25/2024 Results Follow-Up [facility] Metabolism and Lipid [address] [facility] Floor 1, [address] [place] [address] Marixa oSlomon MD 09/24/2024 12:35 PM LAUNDRY TECHNICIAN - 09/24/2024 11:59 PM LAUNDRY TECHNICIAN Hospital Encounter [facility] [address] [place] [address] Hyperparathyroidism Discharge Disposition: Discharge to home or self care 08/23/2024 Telephone [facility] [address] [facility] 5 [place] [address] Marissa Zambrano, RN 08/23/2024 Orders Only [facility] [address] [facility] 5 [place] [address] Marissa Zambrano, RN 08/13/2024 Telephone [facility] [address] [place] [address] Debora Donohue 08/01/2024 Orders Only [facility] Accountable Care Organization [address] [place] [address] Amanda Coleman MD 07/29/2024 Telephone [facility] 5 [place] [address] Marissa Zambrano, RN from Last 3 Months [...] total) by mouth daily before breakfast Active elsoa-8-iwh-epa-dp a-fish oil 1,050-1,200 mg capsuleIndications :hypertriglyceride peter [...] Active cream base no.9, bulk, cream 30 WI Testosterone 0.15% Progesterone 2.0% Apply 1 ml [...] od Assessment & Plan (07/20/2023 2:35 PM LAUNDRY TECHNICIAN): Will restart her progesterone and testosterone cream. Well woman exam 07/20/2023 Overview (01/22/2024): Lab: Pap:s/p hyst Labs with pcp Gibrna:due Colonoscopy:2023- due 2028 BMD:2023 -2.6 Assessment & Plan (01/22/2024 10:03 AM CDT): Complete exam done Assessment & Plan (07/20/2023 2:39 PM LAUNDRY TECHNICIAN): She declines exam today Pituitary lesion 03/30/2023 [...] on file Legal Sex Female 2:48 AM LAUNDRY TECHNICIAN Gender Identity Female 08/28/2023 9:23 AM LAUNDRY TECHNICIAN Sexual Orientation Not on file Last Filed Vital Signs Vital Sign Reading Time Taken Comments Blood Pressure 132/82 09/27/2024 8:05 AM LAUNDRY TECHNICIAN Pulse 82 09/27/2024 8:05 AM LAUNDRY TECHNICIAN Temperature 36.1 C (97 F) 07/08/2024 1:34 PM LAUNDRY TECHNICIAN Respiratory Rate 17 07/08/2024 1:34 PM LAUNDRY TECHNICIAN Oxygen Saturation 98% 09/27/2024 8:05 AM LAUNDRY TECHNICIAN Inhaled Oxygen Concentration - - Weight 68.9 kg (152 lb) 09/27/2024 8:05 AM LAUNDRY TECHNICIAN Height 167.6 cm (5' 6 ) 09/27/2024 8:05 AM LAUNDRY TECHNICIAN Body Mass Index 24.53 09/27/2024 8:05 AM LAUNDRY TECHNICIAN Plan of Treatment Not on file Medical Devices Implanted Type Area Composite Mechanic Device Identifier Shelf Expiration Date Model / Serial / Lot Meza Vascular Occluder Amplatzer Talisman Pfo 25-18mm 9-Pfo-2518 - [id number] - [id number] Implanted:Qt y: 1 on 09/16/2022 by Juan Weiner MD PhD at [facility] Left Atrial Appendage Occluder [employer] 03/30/2025 9-PFO-25 18 / [id number] / [id number] [employer] Graft Tissue Accelular Matrix Dermis Regn Medium 1.2 2.0mm Alloderm Select 2x4cm Rtu [id number] - [id number] Implanted:Qt y: 1 on 03/30/2023 by Michael Bucio MD at [facility] N/A: Brain [employer] [id number] 02/27/2025 [id number] / / [id number] Procedures Procedure Name Priority Date/Time Associated Diagnosis Comments MRI BRAIN W WO CONTRAST (PITUITARY) Schedule Routine, Read Routine (OP Routine) 10/17/2024 12:38 PM CDT Pituitary adenoma (HCC) US THYROID Schedule Routine, Read Routine (OP Routine) 09/24/2024 1:18 PM LAUNDRY TECHNICIAN Hyperparathyroidism LIPID PANEL Routine 09/09/2024 12:07 PM LAUNDRY TECHNICIAN HEMOGLOBIN A1C Routine 06/07/2024 1:31 PM LAUNDRY TECHNICIAN SCREENING MAMMOGRAM BILATERAL W STEVEN Schedule Routine, Read Routine (OP Routine) 03/05/2024 4:34 PM CDT Screening mammogram, encounter for DEXA AXIAL SKELETON BONE DENSITY 1 OR MORE SITES Schedule Routine, Read Routine (OP Routine) 12/11/2023 8:39 AM CDT Encounter for screening for osteoporosis Age-related osteoporosis without current pathological fracture EGFR Routine 11/15/2023 12:27 PM CDT Hyperparathyroidism COLONOSCOPY 10/03/2023 10:16 AM LAUNDRY TECHNICIAN ALBUMIN CREATININE RATIO, URINE Routine 08/09/2021 7:50 AM LAUNDRY TECHNICIAN from Last 3 Months or Most Recently [...] Result * US Thyroid (09/24/2024 1:18 PM LAUNDRY TECHNICIAN) Anatomical Region Laterality Modality Head and Neck N/A Ultrasound 09/24/2024 1:33 PM LAUNDRY TECHNICIAN Impressions 09/24/2024 1:33 PM LAUNDRY TECHNICIAN There is a solid hypoechoic lesion posterior [...] Hamlet Diamond M.D. Narrative 09/24/2024 1:33 PM LAUNDRY TECHNICIAN EXAMINATION: NECK SOFT TISSUE SONOGRAM HISTORY: 68-year-old [...] * (ABNORMAL) Lipid panel (09/09/2024 12:07 PM LAUNDRY TECHNICIAN) SCRIBED Cholesterol, Total 188 0 - 200 EXTERNAL LAB SCRIBED HDL 60 40 - 100 EXTERNAL LAB SCRIBED LDL 104(A) 0 - 100 EXTERNAL LAB SCRIBED Triglycerides 118 0 - 150 EXTERNAL LAB Blood Result [facility] Provider LAB BLOOD ORDERABLES Edit ed Result - Final EXTERNAL LAB * (ABNORMAL) Hemoglobin A1c (06/07/2024 1:31 PM LAUNDRY TECHNICIAN) Blood Historical Provider LAB BLOOD ORDERABLES Katrina [...] history of: screening for osteoporosis Screening. Postmenopausal Composite Mechanic/Model: [employer] SL (S/N [id number]) CLINICAL INFORMATION: Current height: 66 inches Maximum [...] Bryan Burton M.D. MF: KATRINA Report ID: [id number] [place] Location: [id number] [facility] Note Bryan Burton MD - 12/11/2023 EXAM DESCRIPTION: DEXA AXIAL SKELETON BONE DENSITY 1 OR MORE SITES REASON FOR STUDY: 68 y/o year old F with given history of: screeningfor osteoporosis Screening. Postmenopausal Composite Mechanic/Model: [employer] (S/N [id number]) CLINICAL INFORMATION: Current height: 66 inches Maximum [...] signed by Bryan HERNDON: KATRINA Report ID: [id number] [place] Location: [place] [address] [place] Jordyn Aragon MD IMG DXA PROCEDURES [...] BLOOD ORDERABLES Final Result Performing Organization Address City/State/[facility] Co de Phone Number [facility] Department [place] [address] * Colonoscopy (10/03/2023 10:16 AM LAUNDRY TECHNICIAN) Anatomical Region Laterality Modality Other Narrative Procedure Note Lee Murguia MD - 10/03/2023 10:16 AM CST ENDOSCOPY LAB Patient Name: Lianet Rausch Procedure Date: 10/03/2023 10:16 AM Admit Type: Outpatient Room: [facility] 8 Date of : 1955 Instrument Name: [...] the bowel preparation was evaluated using the BBPS([place] Bowel Preparation Scale) with scores of: RightColon [...] Albumin Creatinine Ratio, Urine (08/09/2021 7:50 AM LAUNDRY TECHNICIAN) Albumin Ur <12.0 mg/L [facility] (MADELIN) Comment: Interpretive Data No reference range established. Current interpretive data was last revised 2018. Testing performed by: [facility], [address] [place] [address], [place]., [address] Creatinine Ur 51.1 mg/dL [facility] (MADELIN) Comment: Interpretive Data No reference range established. Current interpretive data was last revised 2018. Testing performed by: [facility], [address] [place] [address]., [address] Albumin Creatinine Ratio, Ur <23 1 - 29 mg/g YONI KISER (MADELIN) Comment:Testing performed by : [facility], [address] [place] [address]., [address] Urine 08/09/2021 7:50 AM LAUNDRY TECHNICIAN 08/09/2021 2:16 PM LAUNDRY TECHNICIAN us Ashok Le MD LAB URINE ORDERABLES Final R esult YONI MARGI (MADELIN) 1 [facility] [place] [address] from Last 3 Months or Most Recently Relevant to Health Maintenance Insurance [facility] MEDICARE [facility] [place] [address] [employer] MEDICARE Advance Directives For more information, please contact: [phone] * Full Code (Latest Code Status on [...] 3:10 PM 12/13/2018 9:39 PM Care Teams Information Writer Relationship Specialty Start Date End Date Ashok Le MD [address] [place] [address] PCP - General 10/28/16 Malcolm Curry MD [address] [place] [address] Consulting Physician Cardiology 12/13/18 Phill Aranda MD [address] [facility] [address] [place] [address] Consulting Physician Cardiology 08/22/22
== END 2024-10-25 16:38 | disposition home or self-care (01) ==
PROVIDERS: Emergency Provider Physician Assistant
DX: S60.221A Contusion of right hand, initial encounter (principal); E11.9 Type 2 diabetes mellitus without complications; E03.9 Hypothyroidism, unspecified; Z87.891 Personal history of nicotine dependence; W20.8XXA Other cause of strike by thrown, projected or falling object, initial encounter
CPT/HCPCS: 73130; 99283